=== PATIENT | female | born 1935 | race Caucasian/White ===

== ENCOUNTER 2022-08-30 16:47 | Inpatient (IN) ==
[2022-08-30] MEDS ORDERED: 0.9 % SODIUM CHLORIDE 1,000 ML IV ONE ×2 (17:09→22:43)
--- NOTE | 2022-08-30 17:15 | Emergency Department Note ---
Syncope HPI General Chief Complaint: Syncope Stated Complaint: syncope Time Seen by Provider: 08/30/22 16:55 Source: patient, family and EMS Mode of arrival: ambulatory Limitations: altered mental status History of Present Illness HPI Narrative: Narrative: The patient presents after syncopal episode. Patient had a fall last night in which she injured her left knee and struck her head. She was seen at another [facility] and a head CT and x-ray were performed. Patient was told that she has a left knee fracture. Today, the patient was having increased pain in her knee and decided that she wanted to try to stand up. She was assisted with family to attempt to stand up. As the family was placing her back into her wheelchair, the patient had a brief syncopal episode. There was no convulsive activity or postictal state. Patient has had no vomiting. Reportedly she has had increased output into her ostomy bag. She has had a slight cough. Family states that patient seems confused after the syncopal episode. They state that she is normally alert and aware but seemed confused afterwards. Related Data Home Medications Medication Instructions Recorded Confirmed acetaminophen 325 mg capsule 325 mg PO ONCE PRN 08/24/20 08/12/22 cyanocobalamin (vitamin B-12) 500 500 mcg PO QDAY 08/24/20 08/12/22 mcg tablet diclofenac sodium 1 % topical gel 2 g topical QID 08/24/20 08/12/22 donepezil 10 mg tablet 10 mg PO QDAY 08/24/20 08/12/22 fluticasone propionate 50 1 inh inhalation BID 08/24/20 08/12/22 mcg/actuation blister powder for inhalation folic acid 400 mcg tablet 400 mcg PO QDAY 08/24/20 08/12/22 gabapentin 100 mg capsule 100 mg PO QDAY 08/24/20 08/12/22 levothyroxine 175 mcg capsule 175 mcg PO QDAY 08/24/20 08/12/22 magnesium 250 mg tablet 400 mg PO QDAY 08/24/20 08/12/22 memantine 10 mg tablet 10 mg PO BID 08/24/20 08/12/22 omega 0-jvu-cbz-fish oil 1,200 mg cap PO 08/24/20 08/12/22 (144 mg-216 mg) capsule (Fish Oil) potassium citrate 10 mEq (1,080 2,160 mg PO BID 08/24/20 08/12/22 mg) tablet,extended release calcium carbonate 600 mg-vitamin tab PO 07/25/22 08/12/22 D3 10 mcg (400 unit) chewable tablet (Calcium 600 with Vitamin D3) mirtazapine 7.5 mg tablet 7.5 mg PO QHS 07/25/22 08/12/22 Allergies Allergy/AdvReac Type Severity Reaction Status Date / Time metoclopramide [From Reglan] AdvReac Intermediate Confusion Verified 08/12/22 16:05 promethazine [From Phenergan] AdvReac Intermediate Confusion Verified 08/12/22 16:05 Review of Systems ROS ROS Narrative: Narrative: Limitations: ROS unobtainable due to patients medical condition (Due to patient's altered mental status.) PFSH Narrative Patient History Narrative: Narrative: Medical/Surgical/Family History All Active Problems (Updated 08/30/22 @ 18:36 by Bryon Garrido MD) Hyponatremia (Chronic) Influenza (Chronic) Dehydration (Chronic) Hip pain (Chronic) Osteoarthritis of hip (Chronic) Trochanteric bursitis (Chronic) Sacroiliitis (Chronic) Bronchitis (Chronic) Kidney failure (Chronic) Hypothyroidism (Chronic) Autoimmune disease (Chronic) Chronic pain (Chronic) Low back pain (Chronic) Menopausal syndrome (Chronic) Fatigue (Chronic) Malaise (Chronic) Joint pain (Chronic) Arthritis (Chronic) Chronic renal failure, stage 4 (severe) (Chronic) Lumbar back pain (Chronic) Herpes zoster (Chronic) History of surgery (Chronic) Abscess of breast, right (Acute) Recurrent UTI (Chronic) Bladder stones (Chronic) Syncope (Acute) SHIVA (acute kidney injury) (Acute) Medical History Arthritis Autoimmune disease Bronchitis Chronic pain Chronic renal failure, stage 4 (severe) Dehydration Fatigue Herpes zoster Hip pain Hyponatremia Hypothyroidism Influenza Joint pain Kidney failure Low back pain Lumbar back pain Malaise Menopausal syndrome Osteoarthritis of hip Recurrent UTI Sacroiliitis Trochanteric bursitis Surgical History History of appendectomy History of hysterectomy History of ileostomy with proctocolectomy, Revison of ileostomy x 2 History of surgery Thoracic Sympathetic Block w/cath, w/sed 10/13/1709/25 Thoracic Sympathetic Block w/cath, w/sed 10/07/2017 History of tonsillectomy and adenoidectomy History of tubal ligation Family History Father Heart disease Arthritis Hypertension Coronary heart disease Colitis Mother Heart disease Hypertension Melanoma Other Heart attack Social History Smoking Status: Never smoker Alcohol Intake Frequency: does not drink Substance Use: does not use Exam Narrative Narrative: Narrative: General Limitations: altered mental status General appearance: Present alert and in no apparent distress Head Head: Absent atraumatic (Multiple facial ecchymoses.) or normal inspection Eye Eye: Present normal appearance, PERRL, EOMI and visual max intact ENT ENT: Present mucous membranes moist Neck Neck: Present normal inspection, full ROM and trachea midline; Absent tenderness Chest Chest: Present normal inspection and symmetric chest wall rise; Absent tenderness Respiratory Respiratory: Present normal lung sounds bilaterally; Absent respiratory distress Cardiovascular Cardiovascular: Present regular rate, normal rhythm and other (+2 pulses in all 4 extremities) Adbominal Abdominal: Present soft; Absent distention or tenderness Extremities Extremities: Absent normal inspection (Left knee in an immobilizer) or full ROM (Apart from limited range of motion of left knee due to the immobilizer, patient has full range of motion of all other extremities) Back Back: Present full ROM; Absent tenderness, CVA tenderness (R) or CVA tenderness (L) Neurological Neurological: Present alert and CN II-XII intact; Absent oriented X3 (Patient seems alert to person and place but is a little confused on time and is unable to properly identify family members) or motor sensory deficit Psychiatric Psychiatric: Present normal affect and normal mood Skin Skin: Present warm (WNL) and dry Course Vital Signs Vital signs: Vital Signs Temperature 97.2 F 08/30/22 16:49 Pulse Rate 57 L 08/30/22 16:49 Respiratory Rate 17 08/30/22 16:49 Blood Pressure 94/67 08/30/22 16:49 Pulse Oximetry (%) 98 08/30/22 16:49 Oxygen Delivery Method 08/30/22 16:49 Temperature 97.2 F 08/30/22 16:49 Pulse Rate 56 L 08/30/22 17:42 Respiratory Rate 15 08/30/22 17:16 Blood Pressure 102/53 08/30/22 17:42 Pulse Oximetry (%) 93 08/30/22 17:42 Oxygen Delivery Method 08/30/22 16:49 MDM MDM Narrative Medical decision making narrative: Narrative: The patient presents after syncopal episode. She had a traumatic fall yesterday but was worked up for this. I will reimage the head today although I have a low suspicion for any acute central nervous system event given a nonfocal neurologic exam. Delayed subdural is considered for the altered mental status. Occult infection is also considered. Metabolic abnormalities are considered. Cardiac etiology is considered. Work-up will be geared towards this differential. Patient most likely will need to be observed overnight in the hospital. Due to limitations and capacity concerns, patient may need to be transferred. At change of shift, the patient is handed over to the oncoming physician who will follow up on remaining studies and then make appropriate disposition Lab Data Lab results reviewed: Yes I reviewed the patient's lab results. Result diagrams: 08/30/22 16:55 08/30/22 16:55 Labs: Lab Results 08/30/22 08/30/22 08/30/22 Range/Units 16:55 16:55 16:55 WBC 11.2 H (4.5-11.0) K/mcL RBC 4.12 (3.59-5.38) M/mcL Hgb 12.3 (11.2-15.7) g/dL Hct 36.7 (34.1-44.9) % MCV 89.1 (80.0-100.0) fL MCH 29.9 (26.0-34.0) pg MCHC 33.5 (31.0-36.0) g/dL RDW 14.7 H (11.5-14.5) % Plt Count 307 (140-440) K/mcL MPV 10.4 (8.8-12.5) fL Immature Gran % (Auto) 0.4 (0.0-0.5) % Neut % (Auto) 66.7 (38.0-78.0) % Lymph % (Auto) 25.6 (15.5-49.0) % [place] % (Auto) 6.3 (1.0-12.0) % Eos % (Auto) 0.6 (0.0-7.0) % Baso % (Auto) 0.4 (0.0-2.0) % Lymph # (Auto) 2.87 (1.50-4.80) K/mcL [place] # (Auto) 0.71 (0.10-0.90) K/mcL Eos # (Auto) 0.07 (0.00-0.70) K/mcL Baso # (Auto) 0.04 (0.00-0.30) K/mcL Immature Gran # 0.04 (0.00-0.05) K/mcl Absolute Neutrophils 7.50 (1.80-8.00) K/mcL POC VBG pH (7.32-7.42) POC VBG pCO2 at Temp (41-51) POC VBG pO2 (25-40) POC VBG HCO3 (24-28) POC VBG Total CO2 (25-29) POC Venous O2 Sat (40-70) POC VBG Base Excess (-2-2) VBG Lactic Acid (0.5-2) Sodium 126 L (133-145) mmol/L Potassium 5.6 H (3.3-5.1) mmol/L Chloride 77 L (96-108) mmol/L Carbon Dioxide 28 (22-30) mmol/L Anion Gap 21.0 H (8.0-16.0) BUN 148 H* (8-23) mg/dL Creatinine 10.7 H* (0.6-1.1) mg/dL GFR Calculation 3 Glucose 118 H (70-105) mg/dL Calcium 9.4 (8.6-10.4) mg/dL Total Bilirubin 0.3 (0.1-1.0) mg/dL AST 19 (<32) U/L ALT 11 (<40) U/L Alkaline Phosphatase 98 (39-117) U/L Total Protein 6.6 (5.9-8.4) gm/dL Albumin 3.6 (3.2-5.2) gm/dL Globulin 3.0 (2.2-3.7) gm/dL Albumin/Globulin Ratio 1.2 (1.0-2.3) Ethyl Alcohol mg/dL < 10.0 mg/dL Ethyl Alcohol g/dL < 0.010 (<0.010) gm/dL 08/30/22 Range/Units 17:43 WBC (4.5-11.0) K/mcL RBC (3.59-5.38) M/mcL Hgb (11.2-15.7) g/dL Hct (34.1-44.9) % MCV (80.0-100.0) fL MCH (26.0-34.0) pg MCHC (31.0-36.0) g/dL RDW (11.5-14.5) % Plt Count (140-440) K/mcL MPV (8.8-12.5) fL Immature Gran % (Auto) (0.0-0.5) % Neut % (Auto) (38.0-78.0) % Lymph % (Auto) (15.5-49.0) % [place] % (Auto) (1.0-12.0) % Eos % (Auto) (0.0-7.0) % Baso % (Auto) (0.0-2.0) % Lymph # (Auto) (1.50-4.80) K/mcL [place] # (Auto) (0.10-0.90) K/mcL Eos # (Auto) (0.00-0.70) K/mcL Baso # (Auto) (0.00-0.30) K/mcL Immature Gran # (0.00-0.05) K/mcl Absolute Neutrophils (1.80-8.00) K/mcL POC VBG pH 7.41 (7.32-7.42) POC VBG pCO2 at Temp 45.7 (41-51) POC VBG pO2 41 H (25-40) POC VBG HCO3 28.9 H (24-28) POC VBG Total CO2 30.0 H (25-29) POC Venous O2 Sat 76.0 H (40-70) POC VBG Base Excess 4.0 H* (-2-2) VBG Lactic Acid 1.6 (0.5-2) Sodium (133-145) mmol/L Potassium (3.3-5.1) mmol/L Chloride (96-108) mmol/L Carbon Dioxide (22-30) mmol/L Anion Gap (8.0-16.0) BUN (8-23) mg/dL Creatinine (0.6-1.1) mg/dL GFR Calculation Glucose (70-105) mg/dL Calcium (8.6-10.4) mg/dL Total Bilirubin (0.1-1.0) mg/dL AST (<32) U/L ALT (<40) U/L Alkaline Phosphatase (39-117) U/L Total Protein (5.9-8.4) gm/dL Albumin (3.2-5.2) gm/dL Globulin (2.2-3.7) gm/dL Albumin/Globulin Ratio (1.0-2.3) Ethyl Alcohol mg/dL mg/dL Ethyl Alcohol g/dL (<0.010) gm/dL ED POC Tests ED POC Tests: BEBETO - Influenza A Negative BEBETO - Influenza B Negative BEBETO - SARS Antigen Negative Radiology Data Radiology results reviewed: Yes I reviewed the patient's radiology results. Radiology results narrative: Per my interpretation of the chest x-ray, there is no definite infiltrative process. It appears relatively unchanged from prior dated back in May EKG Data EKG #1: EKG attestation: Yes I reviewed and interpreted this EKG. and Yes There are no EKG findings of acute coronary syndrome EKG results narrative: Sinus, rate 57, left axis, normal intervals, narrow complex QRS, no acute ST or T changes concerning for acute infarction or ischemia Discharge Plan Patient/Caregiver Discharge Instructions Pt seen by PRINCIPAL MILITARY ANALYST/PA only: No Clinical Impression: Hyponatremia, SHIVA (acute kidney injury) Syncope Qualifiers: Syncope type: unspecified Qualified Code(s): R55 - Syncope and collapse Patient Disposition: Still a Patient Follow up with: Ivone Terrell MD [Primary Care Provider] - Prescriptions: No Action gabapentin 100 mg capsule 100 mg PO QDAY levothyroxine 175 mcg capsule 175 mcg PO QDAY acetaminophen 325 mg capsule 325 mg PO ONCE PRN omega 0-qlq-nxx-fish oil [Fish Oil] 1,200 (144-216) mg capsule PO cyanocobalamin (vitamin B-12) 500 mcg tablet 500 mcg PO QDAY magnesium 250 mg tablet 400 mg PO QDAY donepezil 10 mg tablet 10 mg PO QDAY memantine 10 mg tablet 10 mg PO BID fluticasone propionate 50 mcg/actuation blister with device 1 inh INHALATION BID potassium citrate 10 mEq (1,080 mg) tablet extended release 2,160 mg PO BID folic acid 400 mcg tablet 400 mcg PO QDAY diclofenac sodium 1 % gel 2 g TOPICAL QID Rx Instructions: apply to single elbow, wrist or hand; for hand includes palm/fingers/back of hand Calcium 600 with Vitamin D3 600 mg-10 mcg (400 unit) tablet,chewable PO mirtazapine 7.5 mg tablet 7.5 mg PO QHS
[2022-08-30 17:58] LABS: Basophils # (Auto) 0.04 K/mcL (0.00-0.30); Basophils % (Auto) 0.4 % (0.0-2.0); Eosinophils # (Auto) 0.07 K/mcL (0.00-0.70); Eosinophils % (Auto) 0.6 % (0.0-7.0); Hematocrit 36.7 % (34.1-44.9); Hemoglobin 12.3 g/dL (11.2-15.7); Lymphocytes # (Auto) 2.87 K/mcL (1.50-4.80); Lymphocytes % (Auto) 25.6 % (15.5-49.0); Mean Cell Volume 89.1 fL (80.0-100.0); Mean Corpuscular HGB Conc 33.5 g/dL (31.0-36.0); Mean Platelet Volume 10.4 fL (8.8-12.5); Monocytes # (Auto) 0.71 K/mcL (0.10-0.90); Monocytes % (Auto) 6.3 % (1.0-12.0); Neutrophils % (Auto) 66.7 % (38.0-78.0); Platelet Count 307 K/mcL (140-440); RBC 4.12 M/mcL (3.59-5.38); Red Cell Distribution Width 14.7 % (11.5-14.5); WBC 11.2 K/mcL (4.5-11.0)
--- NOTE | 2022-08-30 18:14 | XRay Report ---
CLINICAL INFORMATION: Cough COMPARISON: 05/16/2022 TECHNIQUE: Portable FINDINGS: The heart size, mediastinum and pulmonary vessels are unremarkable. The lungs are clear. There are no effusions. The bones and soft tissues are within normal limits. IMPRESSION: Normal chest. Interpreted and Authenticated by: Alvaro Suarez 08/30/22
--- NOTE | 2022-08-30 18:14 | Cat Scan Report ---
CLINICAL INFORMATION: Syncope COMPARISON: None. TECHNIQUE: 2.5 mm helical slices were obtained in the skull base to vertex. Following reconstruction, axial reformatted images were reviewed at bone and parenchymal windows. The exam was performed using radiation dose optimization techniques including, but not limited to, automated exposure control, adjustment of the mA and/or kV according to patient size and use of iterative reconstruction technique. FINDINGS: The ventricles, sulci, fissures, and cisterns are symmetrically enlarged compatible with mild age-related atrophy. No extra-axial fluid collections are identified. Mild patchy chronic ischemic changes, in the deep cerebral white matter, are expected for age. There is no hemorrhage, mass effect, or edema. Bone windows show no osseous abnormality. Right scalp hematoma over the left lateral region. IMPRESSION: Mild atrophy and chronic ischemic changes in the deep cerebral white matter-expected for age. No intracerebral hemorrhage. Small scalp hematoma over the left frontal calvaria Interpreted and Authenticated by: Alvaro Suarez 08/30/22
[2022-08-30 18:18] LABS: Alcohol, Blood < 10.0 mg/dL; Alcohol,Blood < 0.010 gm/dL (<0.010)
[2022-08-30 18:31] LABS: ALT/SGPT 11 U/L (<40); AST/SGOT 19 U/L (<32); Albumin 3.6 gm/dL (3.2-5.2); Albumin/Globulin Ratio 1.2 (1.0-2.3); Alkaline Phosphatase 98 U/L (39-117); Bilirubin,Total 0.3 mg/dL (0.1-1.0); Blood Urea Nitrogen 148 mg/dL (8-23); Calcium 9.4 mg/dL (8.6-10.4); Carbon Dioxide 28 mmol/L (22-30); Chloride 77 mmol/L (96-108); Glomerular Filtration Rate 3; Glucose 118 mg/dL (70-105)
[2022-08-30] MEDS: 0.9 % SODIUM CHLORIDE 1,000 ML IV SCH (19:30)
[2022-08-30 19:47] LABS: Appearance,Urine TURBID (Clear); Bacteria,Urine MANY /hpf (0); Bilirubin,Urine NEGATIVE (Negative); Color,Urine DK. YELLOW; Culture Indicated,Urine yes; Glucose,Urine (UA) NEGATIVE (Negative); Ketones,Urine TRACE mg/dL (Negative); Leukocyte Esterase,Urine LARGE /uL (Negative); Nitrate,Urine NEGATIVE (Negative); Protein,Urine 100 mg/dL (Negative); Specific Gravity,Urine 1.025 (1.000-1.035); Urine Blood LARGE ery/mcL (Negative); Urine RBC > 182 /hpf (0-1); Urine Squamous Epithelial Cell 0 /hpf (0-4); Urine WBC > 182 /hpf (0-4); Urobilinogen,Urine Normal
[2022-08-30] MEDS ORDERED: FUROSEMIDE 20 MG/2 ML VIAL IV ONE (20:00)
[2022-08-30 20:02] LABS: Amphetamine Screen,Urine None detected; Barbiturate Screen,Urine None detected; Benzodiazepines Screen,Urine None detected; Cannabinoid Screen,Urine None detected; Cocaine Screen,Urine None detected; Opiate Screen,Urine Suspect Positive; Oxycodone, Urine Screen None detected; Phencyclidine Screen,Urine None detected
[2022-08-30] MEDS: cefTRIAXone 2 GM in DEXTROSE 5% IN WATER 50 ML IV SCH (20:26)
[2022-08-31] MEDS: NOREPINEPHRINE BITARTRATE 16 MG in 0.9 % SODIUM CHLORIDE 234 ML IV SCH (01:17)
[2022-08-31] MEDS: 0.9 % SODIUM CHLORIDE 250 ML IV SCH ×5 (02:15→23:30)
[2022-08-31] MEDS: 0.9 % SODIUM CHLORIDE 1,000 ML IV SCH ×4 (05:20→23:27)
[2022-08-31] MEDS ORDERED: ACETAMINOPHEN 325 MG TABLET PO ONE ×2 (05:35→10:28)
[2022-08-31 06:36] LABS: Basophils # (Auto) 0.05 K/mcL (0.00-0.30); Basophils % (Auto) 0.5 % (0.0-2.0); Eosinophils # (Auto) 0.21 K/mcL (0.00-0.70); Hematocrit 33.6 % (34.1-44.9); Hemoglobin 10.9 g/dL (11.2-15.7); Lymphocytes # (Auto) 3.36 K/mcL (1.50-4.80); Lymphocytes % (Auto) 32.6 % (15.5-49.0); Mean Cell Volume 91.1 fL (80.0-100.0); Mean Corpuscular HGB Conc 32.4 g/dL (31.0-36.0); Mean Platelet Volume 10.3 fL (8.8-12.5); Monocytes # (Auto) 0.84 K/mcL (0.10-0.90); Monocytes % (Auto) 8.1 % (1.0-12.0); Neutrophils % (Auto) 56.3 % (38.0-78.0); Platelet Count 279 K/mcL (140-440); RBC 3.69 M/mcL (3.59-5.38); Red Cell Distribution Width 14.8 % (11.5-14.5); WBC 10.3 K/mcL (4.5-11.0)
--- NOTE | 2022-08-31 06:39 | Emergency Department Note ---
Course Course Course Narrative: I assumed care of patient at 1900 pending accepting facility. Unfortunate we have not received any accepting facility. Patient's blood pressure fell and remained in the low 80s systolically with a MAP of 53. She was bolused IV fluid but that did not help her blood pressure. Patient was started on Levophed drip. Her blood pressure responded appropriately. We will repeat labs in the morning. Case will be signed out to Dr. Garrido. Vital Signs Vital signs: Vital Signs Temperature 97.2 F 08/30/22 16:49 Pulse Rate 57 L 08/30/22 16:49 Respiratory Rate 17 08/30/22 16:49 Blood Pressure 94/67 08/30/22 16:49 Pulse Oximetry (%) 98 08/30/22 16:49 Oxygen Delivery Method 08/30/22 16:49 Temperature 97.1 F 08/31/22 05:29 Pulse Rate 56 L 08/31/22 06:57 Respiratory Rate 14 08/31/22 06:57 Blood Pressure 98/76 08/31/22 06:51 Pulse Oximetry (%) 100 08/31/22 06:57 Oxygen Delivery Method 08/30/22 16:49 MDM MDM Narrative Medical decision making narrative: Narrative: Differential Diagnosis Differential Diagnosis: Dehydration, syncope Medical Records Medical records reviewed: Yes I reviewed the patient's medical records. Lab Data Lab results reviewed: Yes I reviewed the patient's lab results. Result diagrams: 08/31/22 05:55 08/30/22 16:55 Labs: Lab Results 08/30/22 08/30/22 08/30/22 Range/Units 16:55 16:55 16:55 WBC 11.2 H (4.5-11.0) K/mcL RBC 4.12 (3.59-5.38) M/mcL Hgb 12.3 (11.2-15.7) g/dL Hct 36.7 (34.1-44.9) % MCV 89.1 (80.0-100.0) fL MCH 29.9 (26.0-34.0) pg MCHC 33.5 (31.0-36.0) g/dL RDW 14.7 H (11.5-14.5) % Plt Count 307 (140-440) K/mcL MPV 10.4 (8.8-12.5) fL Immature Gran % (Auto) 0.4 (0.0-0.5) % Neut % (Auto) 66.7 (38.0-78.0) % Lymph % (Auto) 25.6 (15.5-49.0) % [place] % (Auto) 6.3 (1.0-12.0) % Eos % (Auto) 0.6 (0.0-7.0) % Baso % (Auto) 0.4 (0.0-2.0) % Lymph # (Auto) 2.87 (1.50-4.80) K/mcL [place] # (Auto) 0.71 (0.10-0.90) K/mcL Eos # (Auto) 0.07 (0.00-0.70) K/mcL Baso # (Auto) 0.04 (0.00-0.30) K/mcL Immature Gran # 0.04 (0.00-0.05) K/mcl Absolute Neutrophils 7.50 (1.80-8.00) K/mcL POC VBG pH (7.32-7.42) POC VBG pCO2 at Temp (41-51) POC VBG pO2 (25-40) POC VBG HCO3 (24-28) POC VBG Total CO2 (25-29) POC Venous O2 Sat (40-70) POC VBG Base Excess (-2-2) VBG Lactic Acid (0.5-2) Sodium 126 L (133-145) mmol/L Potassium 5.6 H (3.3-5.1) mmol/L Chloride 77 L (96-108) mmol/L Carbon Dioxide 28 (22-30) mmol/L Anion Gap 21.0 H (8.0-16.0) BUN 148 H* (8-23) mg/dL Creatinine 10.7 H* (0.6-1.1) mg/dL GFR Calculation 3 Glucose 118 H (70-105) mg/dL Calcium 9.4 (8.6-10.4) mg/dL Total Bilirubin 0.3 (0.1-1.0) mg/dL AST 19 (<32) U/L ALT 11 (<40) U/L Alkaline Phosphatase 98 (39-117) U/L Total Protein 6.6 (5.9-8.4) gm/dL Albumin 3.6 (3.2-5.2) gm/dL Globulin 3.0 (2.2-3.7) gm/dL Albumin/Globulin Ratio 1.2 (1.0-2.3) Urine Color Urine Appearance (Clear) Urine pH (5.0-9.0) Ur Specific [place] (1.000-1.035) Urine Protein (Negative) mg/dL Urine Glucose (UA) (Negative) mg/dL Urine Ketones (Negative) mg/dL Urine Occult Blood (Negative) karyna/mcL Urine Nitrate (Negative) Urine Bilirubin (Negative) mg/dL Urine Urobilinogen mg/dL Ur Leukocyte Esterase (Negative) /uL Urine RBC (0-1) /hpf Urine WBC (0-4) /hpf Ur Squamous Epith Cells (0-4) /hpf Urine Bacteria (0) /hpf Ur Culture Indicated? Urine Opiates Screen Ur Oxycodone Screen U Oxycod/Oxymor Confirm Urine Methadone Screen Ur Methadone Confirm Ur Barbiturates Screen Ur Barbiturate Confirm Ur Phencyclidine Scrn Urine PCP Confirm Ur Amphetamines Screen U Amphetamines Confirm U Benzodiazepines Scrn Ur Benzodiazepine, Qnt Urine Cocaine Screen Urine Cocaine Confirm U Cannabinoids Confirm U Marijuana (THC) Screen Ethyl Alcohol mg/dL < 10.0 mg/dL Ethyl Alcohol g/dL < 0.010 (<0.010) gm/dL 08/30/22 08/30/22 08/30/22 Range/Units 17:43 19:00 19:00 WBC (4.5-11.0) K/mcL RBC (3.59-5.38) M/mcL Hgb (11.2-15.7) g/dL Hct (34.1-44.9) % MCV (80.0-100.0) fL MCH (26.0-34.0) pg MCHC (31.0-36.0) g/dL RDW (11.5-14.5) % Plt Count (140-440) K/mcL MPV (8.8-12.5) fL Immature Gran % (Auto) (0.0-0.5) % Neut % (Auto) (38.0-78.0) % Lymph % (Auto) (15.5-49.0) % [place] % (Auto) (1.0-12.0) % Eos % (Auto) (0.0-7.0) % Baso % (Auto) (0.0-2.0) % Lymph # (Auto) (1.50-4.80) K/mcL [place] # (Auto) (0.10-0.90) K/mcL Eos # (Auto) (0.00-0.70) K/mcL Baso # (Auto) (0.00-0.30) K/mcL Immature Gran # (0.00-0.05) K/mcl Absolute Neutrophils (1.80-8.00) K/mcL POC VBG pH 7.41 (7.32-7.42) POC VBG pCO2 at Temp 45.7 (41-51) POC VBG pO2 41 H (25-40) POC VBG HCO3 28.9 H (24-28) POC VBG Total CO2 30.0 H (25-29) POC Venous O2 Sat 76.0 H (40-70) POC VBG Base Excess 4.0 H* (-2-2) VBG Lactic Acid 1.6 (0.5-2) Sodium (133-145) mmol/L Potassium (3.3-5.1) mmol/L Chloride (96-108) mmol/L Carbon Dioxide (22-30) mmol/L Anion Gap (8.0-16.0) BUN (8-23) mg/dL Creatinine (0.6-1.1) mg/dL GFR Calculation Glucose (70-105) mg/dL Calcium (8.6-10.4) mg/dL Total Bilirubin (0.1-1.0) mg/dL AST (<32) U/L ALT (<40) U/L Alkaline Phosphatase (39-117) U/L Total Protein (5.9-8.4) gm/dL Albumin (3.2-5.2) gm/dL Globulin (2.2-3.7) gm/dL Albumin/Globulin Ratio (1.0-2.3) Urine Color Dk. yellow Urine Appearance Turbid A (Clear) Urine pH 6.0 (5.0-9.0) Ur Specific [place] 1.025 (1.000-1.035) Urine Protein 100 A (Negative) mg/dL Urine Glucose (UA) Negative (Negative) mg/dL Urine Ketones Trace A (Negative) mg/dL Urine Occult Blood Large A (Negative) karyna/mcL Urine Nitrate Negative (Negative) Urine Bilirubin Negative (Negative) mg/dL Urine Urobilinogen Normal mg/dL Ur Leukocyte Esterase Large A (Negative) /uL Urine RBC > 182 H (0-1) /hpf Urine WBC > 182 H (0-4) /hpf Ur Squamous Epith Cells 0 (0-4) /hpf Urine Bacteria Many A (0) /hpf Ur Culture Indicated? yes Urine Opiates Screen Suspect positive A Ur Oxycodone Screen None detected U Oxycod/Oxymor Confirm TNP Urine Methadone Screen None detected Ur Methadone Confirm TNP Ur Barbiturates Screen None detected Ur Barbiturate Confirm TNP Ur Phencyclidine Scrn None detected Urine PCP Confirm TNP Ur Amphetamines Screen None detected U Amphetamines Confirm TNP U Benzodiazepines Scrn None detected Ur Benzodiazepine, Qnt TNP Urine Cocaine Screen None detected Urine Cocaine Confirm TNP U Cannabinoids Confirm TNP U Marijuana (THC) Screen None detected Ethyl Alcohol mg/dL mg/dL Ethyl Alcohol g/dL (<0.010) gm/dL 08/31/22 Range/Units 05:55 WBC 10.3 (4.5-11.0) K/mcL RBC 3.69 (3.59-5.38) M/mcL Hgb 10.9 L (11.2-15.7) g/dL Hct 33.6 L (34.1-44.9) % MCV 91.1 (80.0-100.0) fL MCH 29.5 (26.0-34.0) pg MCHC 32.4 (31.0-36.0) g/dL RDW 14.8 H (11.5-14.5) % Plt Count 279 (140-440) K/mcL MPV 10.3 (8.8-12.5) fL Immature Gran % (Auto) 0.5 (0.0-0.5) % Neut % (Auto) 56.3 (38.0-78.0) % Lymph % (Auto) 32.6 (15.5-49.0) % [place] % (Auto) 8.1 (1.0-12.0) % Eos % (Auto) 2.0 (0.0-7.0) % Baso % (Auto) 0.5 (0.0-2.0) % Lymph # (Auto) 3.36 (1.50-4.80) K/mcL [place] # (Auto) 0.84 (0.10-0.90) K/mcL Eos # (Auto) 0.21 (0.00-0.70) K/mcL Baso # (Auto) 0.05 (0.00-0.30) K/mcL Immature Gran # 0.05 (0.00-0.05) K/mcl Absolute Neutrophils 5.80 (1.80-8.00) K/mcL POC VBG pH (7.32-7.42) POC VBG pCO2 at Temp (41-51) POC VBG pO2 (25-40) POC VBG HCO3 (24-28) POC VBG Total CO2 (25-29) POC Venous O2 Sat (40-70) POC VBG Base Excess (-2-2) VBG Lactic Acid (0.5-2) Sodium (133-145) mmol/L Potassium (3.3-5.1) mmol/L Chloride (96-108) mmol/L Carbon Dioxide (22-30) mmol/L Anion Gap (8.0-16.0) BUN (8-23) mg/dL Creatinine (0.6-1.1) mg/dL GFR Calculation Glucose (70-105) mg/dL Calcium (8.6-10.4) mg/dL Total Bilirubin (0.1-1.0) mg/dL AST (<32) U/L ALT (<40) U/L Alkaline Phosphatase (39-117) U/L Total Protein (5.9-8.4) gm/dL Albumin (3.2-5.2) gm/dL Globulin (2.2-3.7) gm/dL Albumin/Globulin Ratio (1.0-2.3) Urine Color Urine Appearance (Clear) Urine pH (5.0-9.0) Ur Specific [place] (1.000-1.035) Urine Protein (Negative) mg/dL Urine Glucose (UA) (Negative) mg/dL Urine Ketones (Negative) mg/dL Urine Occult Blood (Negative) karyna/mcL Urine Nitrate (Negative) Urine Bilirubin (Negative) mg/dL Urine Urobilinogen mg/dL Ur Leukocyte Esterase (Negative) /uL Urine RBC (0-1) /hpf Urine WBC (0-4) /hpf Ur Squamous Epith Cells (0-4) /hpf Urine Bacteria (0) /hpf Ur Culture Indicated? Urine Opiates Screen Ur Oxycodone Screen U Oxycod/Oxymor Confirm Urine Methadone Screen Ur Methadone Confirm Ur Barbiturates Screen Ur Barbiturate Confirm Ur Phencyclidine Scrn Urine PCP Confirm Ur Amphetamines Screen U Amphetamines Confirm U Benzodiazepines Scrn Ur Benzodiazepine, Qnt Urine Cocaine Screen Urine Cocaine Confirm U Cannabinoids Confirm U Marijuana (THC) Screen Ethyl Alcohol mg/dL mg/dL Ethyl Alcohol g/dL (<0.010) gm/dL ED POC Tests ED POC Tests: BEBETO - Influenza A Negative BEBETO - Influenza B Negative BEBETO - SARS Antigen Negative Core Measures AMI Core Measures Followed: Yes Discharge Plan Patient/Caregiver Discharge Instructions Pt seen by BI LEAD/PA only: No Clinical Impression: Hyponatremia, SHIVA (acute kidney injury) Syncope Qualifiers: Syncope type: unspecified Qualified Code(s): R55 - Syncope and collapse Patient Disposition: Still a Patient Follow up with: Ivone Terrell MD [Primary Care Provider] - Prescriptions: No Action gabapentin 100 mg capsule 100 mg PO QDAY levothyroxine 175 mcg capsule 175 mcg PO QDAY acetaminophen 325 mg capsule 325 mg PO ONCE PRN omega 9-yia-oiz-fish oil [Fish Oil] 1,200 (144-216) mg capsule PO cyanocobalamin (vitamin B-12) 500 mcg tablet 500 mcg PO QDAY magnesium 250 mg tablet 400 mg PO QDAY donepezil 10 mg tablet 10 mg PO QDAY memantine 10 mg tablet 10 mg PO BID fluticasone propionate 50 mcg/actuation blister with device 1 inh INHALATION BID potassium citrate 10 mEq (1,080 mg) tablet extended release 2,160 mg PO BID folic acid 400 mcg tablet 400 mcg PO QDAY diclofenac sodium 1 % gel 2 g TOPICAL QID Rx Instructions: apply to single elbow, wrist or hand; for hand includes palm/fingers/back of hand Calcium 600 with Vitamin D3 600 mg-10 mcg (400 unit) tablet,chewable PO mirtazapine 7.5 mg tablet 7.5 mg PO QHS
[2022-08-31 07:39] LABS: ALT/SGPT 9 U/L (<40); AST/SGOT 14 U/L (<32); Albumin 2.6 gm/dL (3.2-5.2); Albumin/Globulin Ratio 0.9 (1.0-2.3); Alkaline Phosphatase 71 U/L (39-117); Bilirubin,Total 0.2 mg/dL (0.1-1.0); Blood Urea Nitrogen 123 mg/dL (8-23); Calcium 8.3 mg/dL (8.6-10.4); Carbon Dioxide 21 mmol/L (22-30); Chloride 89 mmol/L (96-108); Globulin 2.9 gm/dL (2.2-3.7); Glomerular Filtration Rate 4; Glucose 99 mg/dL (70-105)
[2022-08-31] MEDS: DOPamine 400 MG in PREMIX 1 BAG IV SCH (11:11)
--- NOTE | 2022-08-31 12:13 | Nephrology Consult Note ---
HPI Date of Consult Consult Date: 08/31/22 Requesting physician: Bryon Garrido Primary Care Provider: Ivone Terrell Consult Narrative Chief complaint: Altered mental status Reason for consult: Acute kidney injury on chronic kidney disease stage 4 History of present illness: Janelle Rene is an 87-year-old female, being admitted on 08/31/22. She has dementia, s/p proctocolectomy and ileostomy, history of recurrent urinary tract infections, multiple bladder stones s/p removal by cystoscopy on 08/24/22, chronic kidney disease stage 4-5 (followed by Dr. Mejia). She presented to [facility] ED after a syncopal episode. Patient had a fall the previous night and was seen at [facility] ED. A left knee fracture was diagnosed. She was discharged home. In ED, she was found to be in acute kidney injury with hyperkalemia, metabolic acidosis and hyponatremia. She could not be transferred to a higher level of care. She made urine after IV fluids. Her creatinine and electrolyte abnormalities improved. She is being admitted for supportive care to hospitalist service. I saw her in ED with two daughters at the bedside. Nephrology consultation was requested for acute kidney injury. cc:: CC: Review of Systems ROS unobtainable: due to mental status PFSH PFSH All Active Problems (Updated 08/31/22 @ 12:11 by Abbi No MD) Hyperkalemia (Acute) Acute renal failure superimposed on stage 4 chronic kidney disease (Acute) Hyponatremia (Acute) Influenza (Chronic) Dehydration (Chronic) Hip pain (Chronic) Osteoarthritis of hip (Chronic) Trochanteric bursitis (Chronic) Sacroiliitis (Chronic) Bronchitis (Chronic) Kidney failure (Chronic) Hypothyroidism (Chronic) Autoimmune disease (Chronic) Chronic pain (Chronic) Low back pain (Chronic) Menopausal syndrome (Chronic) Fatigue (Chronic) Malaise (Chronic) Joint pain (Chronic) Arthritis (Chronic) Chronic renal failure, stage 4 (severe) (Chronic) Lumbar back pain (Chronic) Herpes zoster (Chronic) History of surgery (Chronic) Abscess of breast, right (Acute) Recurrent UTI (Chronic) Bladder stones (Chronic) Syncope (Acute) SHIVA (acute kidney injury) (Acute) Medical History (Updated 08/31/22 @ 12:11 by Abbi No MD) Arthritis Autoimmune disease Bronchitis Chronic pain Chronic renal failure, stage 4 (severe) Dehydration Fatigue Herpes zoster Hip pain Hyponatremia Hypothyroidism Influenza Joint pain Kidney failure Low back pain Lumbar back pain Malaise Menopausal syndrome Osteoarthritis of hip Recurrent UTI Sacroiliitis Trochanteric bursitis Surgical History History of appendectomy History of hysterectomy History of ileostomy with proctocolectomy, Revison of ileostomy x 2 History of surgery Thoracic Sympathetic Block w/cath, w/sed 10/13/1709/25 Thoracic Sympathetic Block w/cath, w/sed 10/07/2017 History of tonsillectomy and adenoidectomy History of tubal ligation Family History Father Heart disease Arthritis Hypertension Coronary heart disease Colitis Mother Heart disease Hypertension Melanoma Other Heart attack Social History marital status: education level: college occupational status: retired smoking status: Never smoker alcohol intake frequency: does not drink substance use type: does not use MEDS/ALLERGIES Home Medications and Allergies Home Medications Medication Instructions Recorded Confirmed Type acetaminophen 325 mg capsule 325 mg PO ONCE PRN Pain 08/24/20 08/31/22 History cyanocobalamin (vitamin B-12) 500 500 mcg PO QDAY 08/24/20 08/31/22 History mcg tablet donepezil 10 mg tablet 10 mg PO QDAY 08/24/20 08/31/22 History folic acid 400 mcg tablet 800 mcg PO QDAY 08/24/20 08/31/22 History gabapentin 100 mg capsule 100 mg PO QDAY 08/24/20 08/31/22 History levothyroxine 175 mcg capsule 175 mcg PO QDAY 08/24/20 08/31/22 History magnesium 250 mg tablet 400 mg PO QDAY 08/24/20 08/31/22 History memantine 10 mg tablet 10 mg PO BID 08/24/20 08/31/22 History omega 3-lqo-tlv-fish oil 1,200 mg 1 cap PO BID 08/24/20 08/31/22 History (144 mg-216 mg) capsule (Fish Oil) potassium citrate 10 mEq (1,080 1,080 mg PO BID 08/24/20 08/31/22 History mg) tablet,extended release calcium carbonate 600 mg-vitamin 1 tab PO DAILY 07/25/22 08/31/22 History D3 10 mcg (400 unit) chewable tablet (Calcium 600 with Vitamin D3) mirtazapine 7.5 mg tablet 7.5 mg PO QHS 07/25/22 08/31/22 History Glucosamine Chondroitin 1 cap PO BID 08/31/22 08/31/22 History selenium 200 mcg PO DAILY 08/31/22 08/31/22 History sodium bicarbonate 650 mg tablet 1 tab PO BID 08/31/22 08/31/22 History Allergies Allergy/AdvReac Type Severity Reaction Status Date / Time metoclopramide [From Reglan] AdvReac Intermediate Confusion Verified 08/12/22 16:05 promethazine [From Phenergan] AdvReac Intermediate Confusion Verified 08/12/22 16:05 Physical Examination Vital Signs Vital signs: Temp Pulse Resp BP Pulse Ox O2 Del Method 97.1 F 73 22 105/45 92 08/31/22 05:29 08/31/22 11:51 08/31/22 11:51 08/31/22 11:51 08/31/22 11:51 08/30/22 16:49 General Appearance General appearance: appears started age, chronically ill and fatigue EENT EENT: mucous membranes dry Respiratory Respiratory: clear Cardiovascular Cardiology: no edema, regular rate and regular rhythm Gastrointestinal Gastrointestinal: no tenderness Integumentary Integumentary: ecchymotic (periorbital L>R) Neurologic Neurologic: confused Musculoskeletal Musculoskeletal: joint swelling (left knee) Psychiatric Psychiatric: mood/affect appropriate and cooperative Results Lab Results Result Diagrams: 08/31/22 05:55 08/31/22 05:55 Lab results: Most recent lab results Calcium 8.3 mg/dL (8.6-10.4) L 08/31/22 05:55 A/P Assessment and plan (1) Acute renal failure superimposed on stage 4 chronic kidney disease: Assessment and plan: Janelle Rene is an 87-year-old female, being admitted on 08/31/22. She has dementia, s/p proctocolectomy and ileostomy, history of recurrent urinary tract infections, multiple bladder stones s/p removal by cystoscopy on 08/24/22, chronic kidney disease stage 4-5 (followed by Dr. Mejia). She presented to [facility] ED after a syncopal episode. Patient had a fall the previous night and was seen at [facility] ED. A left knee fracture was diagnosed. She was discharged home. In ED, she was found to be in acute kidney injury with hyperkalemia, metabolic acidosis and hyponatremia. She could not be transferred to a higher level of care. She made urine after IV fluids. Her creatinine and electrolyte abnormalities improved. She is being admitted for supportive care to hospitalist service. I saw her in ED with two daughters at the bedside. Nephrology consultation was requested for acute kidney injury. Acute kidney injury on chronic kidney disease stage 4 with initial hyperkalemia, metabolic acidosis and hyponatremia, present on arrival. There is no recent history of IV contrast administration or NSAID use. Urinalysis was consistent with acute cystitis. Intravascular volume depletion (with ileostomy) has been treated with IV fluid resuscitation. She has been followed by Dr. Mejia for nephrology. Baseline creatinine 1.9 (eGFR 23) on 03/03/22, 2.7 (eGFR 15) on 04/18/22. Chronic kidney disease was attributed to NSAIDs, obstructive nephropathy and hypertension. Previous workup: Renal US on 11/04/19: Small bilateral kidneys with renal cortical atrophy showing no acute findings on ultrasound. Work up: Urinalysis on 08/30/22: Yellow, turbid, pH 6.0, SG 1.025, protein 100, blood large, leukocyte esterase large, urine culture pending. Progress: Serum creatinine decreased from 10.7 to 8.9 in the past 24 hours. Baseline creatinine 1.9 (eGFR 23) on 03/03/22, 2.7 (eGFR 15) on 04/18/22. Urine output: 615 ml reported in the past 24 hours. Metabolic acidosis. Hyponatremia. Hyperkalemia, resolved. Discussion: I discussed the risks and benefits of hemodialysis with her two daughters at the bedside in ED. They would like the patient to have dialysis if needed. Recommendations/Plan: Transfer to a higher level of care was not possible and the patient is being admitted for supportive care to hospitalist service. No urgent acute hemodialysis need, but may be needed based on progress which will require transfer to higher level of care. Avoid NSAIDs, nephrotoxic medications and IV contrast. Monitor BMP and urine output. Status: Acute (2) Hyponatremia: Status: Acute (3) Hyperkalemia: Status: Acute Time Spent With Patient Time: Total time spent is greater than 50% in coordination of care (as documented) at patient's floor/unit and/or counseling patient:
[2022-08-31] MEDS ORDERED: ONDANSETRON 4 MG/2 ML VIAL IV PRN (12:21)
[2022-08-31] MEDS ORDERED: SENNOSIDES 1 TABLET PO PRN (12:21)
--- NOTE | 2022-08-31 12:32 | Internal Med History&Physical ---
HPI History of Present Illness Patient information: Note initiated : 08/31/22 at 12:28 pm Patient: Janelle Rene 87 y/o F admitted on for syncope. Chief complaint: Weakness, Near syncope, Fall. History of present illness: Ms. Rene is a 87 year old pleasant female brought to emergency room after an episode of syncope. 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 The Patient had a fal 08/29 and was seen at [facility]. She had bruised eyes bilaterally and left knee fracture. She was seen by orthopedic surgeon and recommended knee immobilization, pain control and partial weightbearing and follow-up as outpatient. Her head CT and x-ray was unremarkable. Yesterday patient was assisted with family to attempt to stand up. As the family was placing her back into her wheelchair, the patient had a brief syncopal episode. She had poor p.o. intake since her fall. Per family the patient is more confused than her usual which is alert oriented X3. In the emergency room patient was hypotensive despite IV fluid. She was started on Levophed drip. Currently she is on 8 ruben per hour At time of my evaluation patient is awake alert oriented X3. She seems comfortable talks full sentences. She complains of left knee pain otherwise no chest pain, shortness of breath, nausea, vomiting, headache, dizziness, lightheadedness, orthopnea. Patient found to be in acute on chronic renal failure with creatinine 10.7 from 2.7 and BUN of 148. Her potassium was 5.6 but repeat is 4.2. Patient is still makes urine and had a Townsend catheter. I do not see any indication for dialysis. Review of Systems All systems: reviewed and no additional remarkable complaints except as stated Review of systems: Except as documented all systems reviewed and negative PFSH PFSH All Active Problems Hyperkalemia (Acute) Acute renal failure superimposed on stage 4 chronic kidney disease (Acute) Hyponatremia (Acute) Influenza (Chronic) Dehydration (Chronic) Hip pain (Chronic) Osteoarthritis of hip (Chronic) Trochanteric bursitis (Chronic) Sacroiliitis (Chronic) Bronchitis (Chronic) Kidney failure (Chronic) Hypothyroidism (Chronic) Autoimmune disease (Chronic) Chronic pain (Chronic) Low back pain (Chronic) Menopausal syndrome (Chronic) Fatigue (Chronic) Malaise (Chronic) Joint pain (Chronic) Arthritis (Chronic) Chronic renal failure, stage 4 (severe) (Chronic) Lumbar back pain (Chronic) Herpes zoster (Chronic) History of surgery (Chronic) Abscess of breast, right (Acute) Recurrent UTI (Chronic) Bladder stones (Chronic) Syncope (Acute) SHIVA (acute kidney injury) (Acute) Medical History Arthritis Autoimmune disease Bronchitis Chronic pain Chronic renal failure, stage 4 (severe) Dehydration Fatigue Herpes zoster Hip pain Hyponatremia Hypothyroidism Influenza Joint pain Kidney failure Low back pain Lumbar back pain Malaise Menopausal syndrome Osteoarthritis of hip Recurrent UTI Sacroiliitis Trochanteric bursitis Surgical History History of appendectomy History of hysterectomy History of ileostomy with proctocolectomy, Revison of ileostomy x 2 History of surgery Thoracic Sympathetic Block w/cath, w/sed 10/13/1709/25 Thoracic Sympathetic Block w/cath, w/sed 10/07/2017 History of tonsillectomy and adenoidectomy History of tubal ligation Family History Father Heart disease Arthritis Hypertension Coronary heart disease Colitis Mother Heart disease Hypertension Melanoma Other Heart attack Social History marital status: education level: college occupational status: retired smoking status: Never smoker alcohol intake frequency: does not drink substance use type: does not use MEDS/ALLERGIES Home Medications and Allergies Home Medications Medication Instructions Recorded Confirmed Type acetaminophen 325 mg capsule 325 mg PO ONCE PRN Pain 08/24/20 08/31/22 History cyanocobalamin (vitamin B-12) 500 500 mcg PO QDAY 08/24/20 08/31/22 History mcg tablet donepezil 10 mg tablet 10 mg PO QDAY 08/24/20 08/31/22 History folic acid 400 mcg tablet 800 mcg PO QDAY 08/24/20 08/31/22 History gabapentin 100 mg capsule 100 mg PO QDAY 08/24/20 08/31/22 History levothyroxine 175 mcg capsule 175 mcg PO QDAY 08/24/20 08/31/22 History magnesium 250 mg tablet 400 mg PO QDAY 08/24/20 08/31/22 History memantine 10 mg tablet 10 mg PO BID 08/24/20 08/31/22 History omega 7-hmv-iyt-fish oil 1,200 mg 1 cap PO BID 08/24/20 08/31/22 History (144 mg-216 mg) capsule (Fish Oil) potassium citrate 10 mEq (1,080 1,080 mg PO BID 08/24/20 08/31/22 History mg) tablet,extended release calcium carbonate 600 mg-vitamin 1 tab PO DAILY 07/25/22 08/31/22 History D3 10 mcg (400 unit) chewable tablet (Calcium 600 with Vitamin D3) mirtazapine 7.5 mg tablet 7.5 mg PO QHS 07/25/22 08/31/22 History Glucosamine Chondroitin 1 cap PO BID 08/31/22 08/31/22 History selenium 200 mcg PO DAILY 08/31/22 08/31/22 History sodium bicarbonate 650 mg tablet 1 tab PO BID 08/31/22 08/31/22 History Allergies Allergy/AdvReac Type Severity Reaction Status Date / Time metoclopramide [From Reglan] AdvReac Intermediate Confusion Verified 08/12/22 16:05 promethazine [From Phenergan] AdvReac Intermediate Confusion Verified 08/12/22 16:05 EXAM Constitutional Vitals: Temp Pulse Resp BP Pulse Ox O2 Del Method 97.1 F 69 16 121/92 94 08/31/22 05:29 08/31/22 12:11 08/31/22 12:11 08/31/22 12:11 08/31/22 12:11 08/30/22 16:49 Exam: General: Well-developed, well-nourished pleasant elderly female feet both black eyes due to recent fall in no distress. HEENT: Bilateral periorbital hematoma due to recent fall, normocephalic.PERRLA, moist mucous membrane. Anicteric sclera Chest: No point tenderness.No point tenderness. Lungs: Clear to auscultation bilaterally. No rhonchi rales or crackles. No wheezing. No use of accessory muscle respiration. Cardiovascular: Regular rate and rhythm. S1 + S2, no murmur gallop rub. No peripheral edema. No JVD Extremities: Left knee moderate effusion tender range of motion. No ulcer. There is bruises around the left knee. GI: Ileostomy in place with liquid content, abdomen soft, nontender, positive bowel sounds. No hepatosplenomegaly. No rebound tenderness. No CVA tenderness. Sue sign is negative : No Townsend catheter. No bladder distention GERIATRIC NURSE ASSISTANT: Awake alert oriented x 2. Cranial nerves II through XII 12 grossly intact. Motor, sensory intact. Skin:Dry. Bruises in extremity due to recent fall Lymph: No lymphadenopathy Psychiatric: Normal mood and affect DATA Data Completed and Pending Labs: Labs from last 24 hours 08/31/22 08/31/22 08/31/22 05:55 05:55 05:55 WBC 10.3 RBC 3.69 Hgb 10.9 L Hct 33.6 L MCV 91.1 MCH 29.5 MCHC 32.4 RDW 14.8 H Plt Count 279 MPV 10.3 Immature Gran % (Auto) 0.5 Neut % (Auto) 56.3 Lymph % (Auto) 32.6 [place] % (Auto) 8.1 Eos % (Auto) 2.0 Baso % (Auto) 0.5 Lymph # (Auto) 3.36 [place] # (Auto) 0.84 Eos # (Auto) 0.21 Baso # (Auto) 0.05 Immature Gran # 0.05 Absolute Neutrophils 5.80 POC VBG pH POC VBG pCO2 at Temp POC VBG pO2 POC VBG HCO3 POC VBG Total CO2 POC Venous O2 Sat POC VBG Base Excess VBG Lactic Acid Sodium 127 L Potassium 4.2 Chloride 89 L Carbon Dioxide 21 L Anion Gap 17.0 H BUN 123 H* Creatinine 8.9 H* GFR Calculation 4 Glucose 99 Calcium 8.3 L Total Bilirubin 0.2 AST 14 ALT 9 Alkaline Phosphatase 71 Total Creatine Kinase 158 Total Protein 5.5 L Albumin 2.6 L Globulin 2.9 Albumin/Globulin Ratio 0.9 L Urine Color Urine Appearance Urine pH Ur Specific [place] Urine Protein Urine Glucose (UA) Urine Ketones Urine Occult Blood Urine Nitrate Urine Bilirubin Urine Urobilinogen Ur Leukocyte Esterase Urine RBC Urine WBC Ur Squamous Epith Cells Urine Bacteria Ur Culture Indicated? Urine Opiates Screen Ur Opiates Confirm Ur Oxycodone Screen U Oxycod/Oxymor Confirm Urine Methadone Screen Ur Methadone Confirm Ur Barbiturates Screen Ur Barbiturate Confirm Ur Phencyclidine Scrn Urine PCP Confirm Ur Amphetamines Screen U Amphetamines Confirm U Benzodiazepines Scrn Ur Benzodiazepine, Qnt Urine Cocaine Screen Urine Cocaine Confirm U Cannabinoids Confirm U Marijuana (THC) Screen Ethyl Alcohol mg/dL Ethyl Alcohol g/dL 08/30/22 08/30/22 08/30/22 19:00 19:00 17:43 WBC RBC Hgb Hct MCV MCH MCHC RDW Plt Count MPV Immature Gran % (Auto) Neut % (Auto) Lymph % (Auto) [place] % (Auto) Eos % (Auto) Baso % (Auto) Lymph # (Auto) [place] # (Auto) Eos # (Auto) Baso # (Auto) Immature Gran # Absolute Neutrophils POC VBG pH 7.41 POC VBG pCO2 at Temp 45.7 POC VBG pO2 41 H POC VBG HCO3 28.9 H POC VBG Total CO2 30.0 H POC Venous O2 Sat 76.0 H POC VBG Base Excess 4.0 H* VBG Lactic Acid 1.6 Sodium Potassium Chloride Carbon Dioxide Anion Gap BUN Creatinine GFR Calculation Glucose Calcium Total Bilirubin AST ALT Alkaline Phosphatase Total Creatine Kinase Total Protein Albumin Globulin Albumin/Globulin Ratio Urine Color Dk. yellow Urine Appearance Turbid A Urine pH 6.0 Ur Specific [place] 1.025 Urine Protein 100 A Urine Glucose (UA) Negative Urine Ketones Trace A Urine Occult Blood Large A Urine Nitrate Negative Urine Bilirubin Negative Urine Urobilinogen Normal Ur Leukocyte Esterase Large A Urine RBC > 182 H Urine WBC > 182 H Ur Squamous Epith Cells 0 Urine Bacteria Many A Ur Culture Indicated? yes Urine Opiates Screen Suspect positive A Ur Opiates Confirm Pending Ur Oxycodone Screen None detected U Oxycod/Oxymor Confirm TNP Urine Methadone Screen None detected Ur Methadone Confirm TNP Ur Barbiturates Screen None detected Ur Barbiturate Confirm TNP Ur Phencyclidine Scrn None detected Urine PCP Confirm TNP Ur Amphetamines Screen None detected U Amphetamines Confirm TNP U Benzodiazepines Scrn None detected Ur Benzodiazepine, Qnt TNP Urine Cocaine Screen None detected Urine Cocaine Confirm TNP U Cannabinoids Confirm TNP U Marijuana (THC) Screen None detected Ethyl Alcohol mg/dL Ethyl Alcohol g/dL 08/30/22 08/30/22 08/30/22 16:55 16:55 16:55 WBC 11.2 H RBC 4.12 Hgb 12.3 Hct 36.7 MCV 89.1 MCH 29.9 MCHC 33.5 RDW 14.7 H Plt Count 307 MPV 10.4 Immature Gran % (Auto) 0.4 Neut % (Auto) 66.7 Lymph % (Auto) 25.6 [place] % (Auto) 6.3 Eos % (Auto) 0.6 Baso % (Auto) 0.4 Lymph # (Auto) 2.87 [place] # (Auto) 0.71 Eos # (Auto) 0.07 Baso # (Auto) 0.04 Immature Gran # 0.04 Absolute Neutrophils 7.50 POC VBG pH POC VBG pCO2 at Temp POC VBG pO2 POC VBG HCO3 POC VBG Total CO2 POC Venous O2 Sat POC VBG Base Excess VBG Lactic Acid Sodium 126 L Potassium 5.6 H Chloride 77 L Carbon Dioxide 28 Anion Gap 21.0 H BUN 148 H* Creatinine 10.7 H* GFR Calculation 3 Glucose 118 H Calcium 9.4 Total Bilirubin 0.3 AST 19 ALT 11 Alkaline Phosphatase 98 Total Creatine Kinase Total Protein 6.6 Albumin 3.6 Globulin 3.0 Albumin/Globulin Ratio 1.2 Urine Color Urine Appearance Urine pH Ur Specific [place] Urine Protein Urine Glucose (UA) Urine Ketones Urine Occult Blood Urine Nitrate Urine Bilirubin Urine Urobilinogen Ur Leukocyte Esterase Urine RBC Urine WBC Ur Squamous Epith Cells Urine Bacteria Ur Culture Indicated? Urine Opiates Screen Ur Opiates Confirm Ur Oxycodone Screen U Oxycod/Oxymor Confirm Urine Methadone Screen Ur Methadone Confirm Ur Barbiturates Screen Ur Barbiturate Confirm Ur Phencyclidine Scrn Urine PCP Confirm Ur Amphetamines Screen U Amphetamines Confirm U Benzodiazepines Scrn Ur Benzodiazepine, Qnt Urine Cocaine Screen Urine Cocaine Confirm U Cannabinoids Confirm U Marijuana (THC) Screen Ethyl Alcohol mg/dL < 10.0 Ethyl Alcohol g/dL < 0.010 Impressions Impressions: CT head noncontrast: IMPRESSION: Mild atrophy and chronic ischemic changes in the deep cerebral white matter-expected for age. No intracerebral hemorrhage. Small scalp hematoma over the left frontal calvaria Chest x-ray: Normal chest. No acute finding A/P Sepsis Sepsis Identified: No Narrative A/P Narrative: Pleasant 87 years old female with past medical history significant for chronic kidney disease stage IV, history of ulcerative colitis status post total colectomy and ileostomy brought to emergency room with following problem list: #Acute on chronic Stage IV kidney injury. Nonoliguric -Most likely ATN due to poor p.o. intake/hypotension CPK 158 -Baseline BUN/creatinine 67/2.7. On admit 148/10.7, potassium 5.6, no acidemia. -No indication for dialysis. Patient received 2 L IV fluid and her renal function trending down -Admit to ICU. BMP every 6 hours -Continue IV fluid. Change Levophed drip to dopamine for better renal perfusion -Keep systolic blood pressure more than 130. Strict I's and O's. Avoid nephrotoxic agent. -Nephrology has been consulted #Hypovolemic shock. -Due to poor p.o. intake. No signs of bleeding. Hemoglobin is stable. -Started on Levophed drip in the emergency room. Changed to dopamine drip. -Keep systolic blood pressure over 130 and continue IV fluid #Hyperkalemia due to SHIVA. Resolved and currently 4.2 #Hyponatremia. Most likely due to hypovolemia. Currently 127 from 126 -Continue NS at 125/h and BMP every 6 hours #Bacteriuria. Patient has Townsend catheter. She is unaware of dysuria -I will empirically treat with Rocephin 1 g daily and follow urine culture # Gap Metabolic Acidosis. - Due to SHIVA. Resolved. Cont home Bicarb PO #Recent fall with left knee fracture. -Patient was seen by orthopedic surgery at [facility]. Recommend partial weightbearing and immobilizer -We will try to get records from [facility] #History of ulcerative colitis, status post total colectomy and ileostomy -High output ileostomy. Continue IV fluid to match I/os #Dementia. Baseline alert oriented X3 -Continue donezepil and memantine CODE STATUS: Full code DVT prophylaxis: Heparin 5000 twice daily Alternative decision maker: Patient's daughter. I have discussed with patient, her daughter and grandson Madi in detail and answered all her question. Time Spent With Patient Time: Total time spent is greater than 50% in coordination of care (as documented) at patient's floor/unit and/or counseling patient: Total time spent with greater than 50% in coordination of care (as documented) at patient's floor/unit and/or counseling patient:: Greater than 70 minutes Critical Care Time: Yes Total Critical Care Time: 72
[2022-08-31] MEDS: DOPamine 400 MG/250 ML BAG IV SCH (12:35)
[2022-08-31] MEDS ORDERED: ALBUMIN HUMAN 25 GM/100 ML BAG IV SCH (12:45)
[2022-08-31 14:20] LABS: Blood Urea Nitrogen 120 mg/dL (8-23); Calcium 8.4 mg/dL (8.6-10.4); Carbon Dioxide 24 mmol/L (22-30); Chloride 89 mmol/L (96-108); Glomerular Filtration Rate 4; Glucose 107 mg/dL (70-105)
[2022-08-31] MEDS: 0.9 % SODIUM CHLORIDE 10 ML SYRINGE IV SCH ×2 (14:34→23:28)
[2022-08-31 22:02] LABS: Blood Urea Nitrogen 105 mg/dL (8-23); Calcium 8.2 mg/dL (8.6-10.4); Carbon Dioxide 21 mmol/L (22-30); Chloride 89 mmol/L (96-108); Glomerular Filtration Rate 5; Glucose 124 mg/dL (70-105)
[2022-08-31] MEDS ORDERED: cefTRIAXone 2 GM VIAL ONE (22:31)
[2022-08-31] MEDS: cefTRIAXone 2 GM in DEXTROSE 5% IN WATER 50 ML IV SCH (23:20)
[2022-08-31] MEDS: HEPARIN 5,000 UNIT/ML VIAL SQ SCH (23:26)
[2022-08-31] MEDS: MIRTAZAPINE 15 MG TABLET PO SCH (23:28)
[2022-08-31] MEDS: SODIUM BICARBONATE 650 MG TABLET PO SCH (23:28)
[2022-08-31] MEDS: MEMANTINE 10 MG TABLET PO SCH (23:28)
[2022-09-01] MEDS: NOREPINEPHRINE BITARTRATE 16 MG in 0.9 % SODIUM CHLORIDE 234 ML IV SCH (00:26)
[2022-09-01] MEDS: 0.9 % SODIUM CHLORIDE 250 ML IV SCH ×4 (03:33→16:04)
[2022-09-01] MEDS: DOPamine 400 MG in PREMIX 1 BAG IV SCH ×2 (03:37→16:03)
[2022-09-01] MEDS: 0.9 % SODIUM CHLORIDE 1,000 ML IV SCH ×5 (05:09→23:53)
[2022-09-01] MEDS: DOPamine 400 MG/250 ML BAG IV SCH (06:58)
[2022-09-01] MEDS: LEVOTHYROXINE 25 MCG TABLET PO SCH (07:20)
[2022-09-01] MEDS: LEVOTHYROXINE 150 MCG TABLET PO SCH (07:20)
[2022-09-01] MEDS: 0.9 % SODIUM CHLORIDE 10 ML SYRINGE IV SCH ×3 (07:20→20:45)
[2022-09-01 07:31] LABS: Creatine Kinase 110 U/L (24-170)
[2022-09-01 07:45] LABS: Phosphorous 6.7 mg/dL (2.5-4.5)
[2022-09-01] MEDS: SODIUM BICARBONATE 650 MG TABLET PO SCH ×2 (08:34→20:45)
[2022-09-01] MEDS: GABAPENTIN 100 MG CAPSULE PO SCH (08:34)
[2022-09-01] MEDS: DONEPEZIL 10 MG TABLET PO SCH (08:34)
[2022-09-01] MEDS: MEMANTINE 10 MG TABLET PO SCH ×2 (08:34→20:45)
[2022-09-01] MEDS: HEPARIN 5,000 UNIT/ML VIAL SQ SCH ×2 (08:34→20:45)
[2022-09-01] MEDS: FOLIC ACID 1 MG TABLET PO SCH (08:34)
[2022-09-01 08:54] LABS: Basophils # (Auto) 0.03 K/mcL (0.00-0.30); Basophils % (Auto) 0.3 % (0.0-2.0); Eosinophils # (Auto) 0.13 K/mcL (0.00-0.70); Eosinophils % (Auto) 1.4 % (0.0-7.0); Hematocrit 35.2 % (34.1-44.9); Hemoglobin 11.6 g/dL (11.2-15.7); Lymphocytes # (Auto) 1.52 K/mcL (1.50-4.80); Mean Cell Volume 88.2 fL (80.0-100.0); Mean Platelet Volume 9.9 fL (8.8-12.5); Monocytes # (Auto) 0.56 K/mcL (0.10-0.90); Monocytes % (Auto) 5.9 % (1.0-12.0); Neutrophils % (Auto) 75.7 % (38.0-78.0); Platelet Count 255 K/mcL (140-440); RBC 3.99 M/mcL (3.59-5.38); Red Cell Distribution Width 14.6 % (11.5-14.5); WBC 9.5 K/mcL (4.5-11.0)
[2022-09-01 08:56] LABS: ALT/SGPT 7 U/L (<40); AST/SGOT 18 U/L (<32); Albumin 2.7 gm/dL (3.2-5.2); Albumin/Globulin Ratio 0.9 (1.0-2.3); Alkaline Phosphatase 69 U/L (39-117); Bilirubin,Total 0.2 mg/dL (0.1-1.0); Blood Urea Nitrogen 98 mg/dL (8-23); Calcium 8.4 mg/dL (8.6-10.4); Carbon Dioxide 15 mmol/L (22-30); Chloride 93 mmol/L (96-108); Glomerular Filtration Rate 5; Glucose 82 mg/dL (70-105)
--- NOTE | 2022-09-01 11:10 | Nephrology Progress Note ---
SUBJECTIVE Subjective Patient information: Note initiated : 09/01/22 at 11:07 am Patient: Janelle Rene 87 y/o F admitted on 08/31/22 for syncope. Chief Complaint: Altered mental status Pertinent ROS: Weakness Confusion, improved Townsend catheter Ileostomy Left knee pain Constitutional Vitals: Vital Signs Temp Pulse Resp BP Pulse Ox O2 Del Method O2 Flow Rate 98.2 F 78 15 100/47 98 2 09/01/22 04:01 09/01/22 10:12 09/01/22 10:12 09/01/22 10:12 09/01/22 10:12 09/01/22 07:29 09/01/22 04:01 Period Temp Pulse Resp BP Sys/Mistry Pulse Ox O2 Del Method O2 Flow Rate Last 24 Hr 97.1 F-98.3 F 58-93 8-38 72-159/36-140 87-100 Nasal Cannula- Room Air 0-2 Intake and Output 08/31/22 09/01/22 09/01/22 19:59 03:59 11:59 Intake Total 1184 1188 1371 Output Total 059 681 7180 Balance 964 348 321 Weight 168 lb 6.4 oz 168 lb 8 oz Intake & Output: Intake & Output 08/31/22 09/01/22 09/01/22 19:59 03:59 11:59 Intake Total 1184 1188 1371 Output Total 512 467 5110 Balance 964 348 321 Weight 168 lb 6.4 oz 168 lb 8 oz Intake: IV 1184 1188 1121 Sodium Chloride 0.9% 1,000 ml @ 1000 804 990 125 mls/hr IV .Q8H [facility] Rx#: [id number] Sodium Chloride 0.9% 250 ml @ 194 20 mls/hr IV .[id number] [facility] Rx#: [id number] BUMINATE 25 gm In 100 ml @ 100 100 mls/hr IV 1245 [facility] Rx#: [id number] DOPamine 400 MG In Premix 1 Bag 84 140 131 @ 5 MCG/KG/MIN 14.373 mls/hr IV .[id number] [facility] Rx#:[id number] Rocephin 2 gm In Dextrose 5% in 50 Water 50 ml @ 100 mls/hr IV Q24H [facility] Rx#:[id number] Oral 250 Output: Urine Catheter Amount 160 640 900 Void Amount 60 200 Stool 150 Other: Meal Dinner Breakfast Percent of Meal Consumed 10 75% Feeding Ability Assist with Tray Set Up Urine Appearance Cloudy Clear Clear Sediment Uretheral (Townsend) Cloudy Clear Clear Urine Color Yellow Yellow Yellow Pale Pale Uretheral (Townsend) Yellow Yellow Yellow Pale Pale Urine Odor Normal Uretheral (Townsend) Normal Stool Size Moderate Stool Color Green Stool Consistency Liquid Loose General appearance: cooperative and no acute distress Head Head exam: Present normal inspection Eye Eye exam: Present normal appearance ENT ENT exam: Present mucous membranes moist Respiratory Respiratory exam: Absent respiratory distress Cardiovascular Cardiovascular exam: Present normal rate and rhythm GI/Abdominal GI/Abdominal exam: Present soft; Absent tenderness Extremities Exam Extremities exam: Absent joint swelling or pedal edema Neurological Exam Neurological exam: Present alert Psychiatric Psychiatric exam: Present normal affect and normal mood Skin Skin exam: Present warm; Absent rash Additional comments: bilateral periorbital ecchymosis A/P Assessment and plan (1) Acute renal failure superimposed on stage 4 chronic kidney disease: Assessment and plan: Janelle Rene is an 87-year-old female, admitted on 08/31/22. She has dementia, s/p proctocolectomy with ileostomy, history of recurrent urinary tract infections, multiple bladder stones s/p removal by cystoscopy on 08/24/22, chronic kidney disease stage 4-5 (followed by Dr. Mejia). She presented to [facility] ED after a syncopal episode. Patient had a fall the previous night and was seen at [facility]. A left knee fracture was diagnosed. She was discharged home. In ED, she was found to be in acute kidney injury with hyperkalemia, metabolic acidosis and hyponatremia. She could not be transferred to a higher level of care. She had urine output after IV fluids. Her creatinine and electrolyte abnormalities improved. I saw her in ED with two daughters at the bedside. Nephrology consultation was requested for acute kidney injury. Acute kidney injury on chronic kidney disease stage 4 with initial hyperkalemia, metabolic acidosis and hyponatremia, present on arrival. There is no recent history of IV contrast administration or NSAID use. Urinalysis was consistent with acute cystitis. Intravascular volume depletion (with ileostomy) treated with IV fluid resuscitation. She has been followed by Dr. Mejia for nephrology. Baseline creatinine 1.9 (eGFR 23) on 03/03/22, 2.7 (eGFR 15) on 04/18/22. Chronic kidney disease was attributed to NSAIDs, obstructive nephropathy and hypertension. Previous workup: Renal US on 11/04/19: Small bilateral kidneys with renal cortical atrophy showing no acute findings on ultrasound. Work up: Urinalysis on 08/30/22: Yellow, turbid, pH 6.0, SG 1.025, protein 100, blood large, leukocyte esterase large, urine culture pending. Progress: Serum creatinine decreased from 7.2 to 6.5 in the past 8 hours. Baseline creatinine 1.9 (eGFR 23) on 03/03/22, 2.7 (eGFR 15) on 04/18/22. Urine output: 800 ml reported in the past 24 hours. Metabolic acidosis. Hyponatremia. Hyperkalemia, resolved. Discussion: Risks and benefits of hemodialysis discussed with her two daughters at the bedside in ED. They would like the patient to have dialysis if needed. Her daughter informed at bedside today. Recommendations/Plan: No urgent acute hemodialysis need. Avoid NSAIDs, nephrotoxic medications and IV contrast. Monitor BMP and urine output. Status: Acute (2) Hyponatremia: Status: Acute (3) Hyperkalemia: Status: Acute Time Spent With Patient Time: Total time spent is greater than 50% in coordination of care (as documented) at patient's floor/unit and/or counseling patient:
--- NOTE | 2022-09-01 12:37 | Internal Med Progress Note ---
SUBJECTIVE Subjective Patient information: Note initiated : 09/01/22 at 12:30 pm Patient: Janelle Rene 87 y/o F admitted on 08/31/22 for syncope. Interval history: She has off-and-on confusion/disorientation especially during night. Currently is comfortable, awake alert oriented x2. Daughter at bedside.Patient is feeling well. She is a still on dopamine drip 7 ruben. She has good urine output about 800 cc. Creatinine is slightly trending down. Patient does not seem to be volume overloaded. She has ileostomy leaking and stucco worker working to fix it. No reported fever chills cough chest pain shortness of breath nausea vomiting abdominal pain. Pertinent ROS: Except as documented all systems reviewed and negative Constitutional Vitals: Vital Signs Temp Pulse Resp BP Pulse Ox O2 Del Method O2 Flow Rate 98.2 F 67 10 L 119/59 97 2 09/01/22 04:01 09/01/22 12:11 09/01/22 12:11 09/01/22 12:11 09/01/22 12:11 09/01/22 07:29 09/01/22 04:01 Period Temp Pulse Resp BP Sys/Mistry Pulse Ox O2 Del Method O2 Flow Rate Last 24 Hr 97.1 F-98.3 F 60-93 8-38 72-159/36-140 87-100 Nasal Cannula- Room Air 0-2 Intake and Output 09/01/22 09/01/22 09/01/22 03:59 11:59 19:59 Intake Total 1188 1371 Output Total 840 1365 Balance 348 6 Weight 76.43 kg Intake & Output: Intake & Output 09/01/22 09/01/22 09/01/22 03:59 11:59 19:59 Intake Total 1188 1371 Output Total 840 1365 Balance 348 6 Weight 76.43 kg Intake: IV 1188 1121 Sodium Chloride 0.9% 1,000 ml @ 804 990 125 mls/hr IV .Q8H [facility] Rx#: [id number] Sodium Chloride 0.9% 250 ml @ 194 20 mls/hr IV .[id number] [facility] Rx#: [id number] DOPamine 400 MG In Premix 1 Bag 140 131 @ 5 MCG/KG/MIN 14.373 mls/hr IV .[id number] [facility] Rx#:[id number] Rocephin 2 gm In Dextrose 5% in 50 Water 50 ml @ 100 mls/hr IV Q24H [facility] Rx#:[id number] Oral 250 Output: Urine Catheter Amount 640 1065 Void Amount 200 Stool 300 Other: Meal Dinner Breakfast Percent of Meal Consumed 10 75% Feeding Ability Assist with Tray Set Up Urine Appearance Clear Clear Clear Sediment Uretheral (Townsend) Clear Clear Urine Color Yellow Yellow Yellow Pale Pale Pale Uretheral (Townsend) Yellow Yellow Pale Pale Urine Odor Normal Uretheral (Townsend) Normal Stool Size Moderate Moderate Stool Color Green Green Stool Consistency Liquid Watery Watery Loose General: Well-developed, well-nourished pleasant elderly female feet both black eyes due to recent fall in no distress. HEENT: Bilateral periorbital hematoma due to recent fall, normocephalic.PERRLA, moist mucous membrane. Anicteric sclera Chest: No point tenderness.No point tenderness. Lungs: Clear to auscultation bilaterally. No rhonchi rales or crackles. No wheezing. No use of accessory muscle respiration. Cardiovascular: Regular rate and rhythm. S1 + S2, no murmur gallop rub. No peripheral edema. No JVD Extremities: Left knee moderate effusion tender range of motion. No ulcer. There is bruises around the left knee. GI: Ileostomy in place with liquid content, abdomen soft, nontender, positive bowel sounds. No hepatosplenomegaly. No rebound tenderness. No CVA tenderness. Sue sign is negative : Townsend catheter in place with clear urine FOUNDER: Awake alert oriented x 2. Cranial nerves II through XII 12 grossly intact. Motor, sensory intact. Skin:Dry. Bruises in extremity due to recent fall Psychiatric: Normal mood and affect OBJ DATA Labs CBC & Chem 7: 09/01/22 08:33 09/01/22 05:22 Labs: Abnormal Lab Results 09/01/22 09/01/22 09/01/22 08:33 05:22 05:22 WBC Hgb Hct RDW 14.6 H Immature Gran % (Auto) 0.7 H Immature Gran # 0.07 H POC VBG pO2 POC VBG HCO3 POC VBG Total CO2 POC Venous O2 Sat POC VBG Base Excess Sodium 129 L Potassium Chloride 93 L Carbon Dioxide 15 L Anion Gap 21.0 H BUN 98 H Creatinine 6.5 H* Glucose Calcium 8.4 L Phosphorus 6.7 H* Magnesium 3.0 H Total Protein 5.7 L Albumin 2.7 L Albumin/Globulin Ratio 0.9 L Urine Appearance Urine Protein Urine Ketones Urine Occult Blood Ur Leukocyte Esterase Urine RBC Urine WBC Urine Bacteria Urine Opiates Screen 08/31/22 08/31/22 08/31/22 20:37 12:59 05:55 WBC Hgb Hct RDW Immature Gran % (Auto) Immature Gran # POC VBG pO2 POC VBG HCO3 POC VBG Total CO2 POC Venous O2 Sat POC VBG Base Excess Sodium 124 L 127 L 127 L Potassium Chloride 89 L 89 L 89 L Carbon Dioxide 21 L 21 L Anion Gap 17.0 H BUN 105 H* 120 H* 123 H* Creatinine 7.2 H* 7.5 H* 8.9 H* Glucose 124 H 107 H Calcium 8.2 L 8.4 L 8.3 L Phosphorus Magnesium Total Protein 5.5 L Albumin 2.6 L Albumin/Globulin Ratio 0.9 L Urine Appearance Urine Protein Urine Ketones Urine Occult Blood Ur Leukocyte Esterase Urine RBC Urine WBC Urine Bacteria Urine Opiates Screen 08/31/22 08/30/22 08/30/22 05:55 19:00 19:00 WBC Hgb 10.9 L Hct 33.6 L RDW 14.8 H Immature Gran % (Auto) Immature Gran # POC VBG pO2 POC VBG HCO3 POC VBG Total CO2 POC Venous O2 Sat POC VBG Base Excess Sodium Potassium Chloride Carbon Dioxide Anion Gap BUN Creatinine Glucose Calcium Phosphorus Magnesium Total Protein Albumin Albumin/Globulin Ratio Urine Appearance Turbid A Urine Protein 100 A Urine Ketones Trace A Urine Occult Blood Large A Ur Leukocyte Esterase Large A Urine RBC > 182 H Urine WBC > 182 H Urine Bacteria Many A Urine Opiates Screen Suspect positive A 08/30/22 08/30/22 08/30/22 17:43 16:55 16:55 WBC 11.2 H Hgb Hct RDW 14.7 H Immature Gran % (Auto) Immature Gran # POC VBG pO2 41 H POC VBG HCO3 28.9 H POC VBG Total CO2 30.0 H POC Venous O2 Sat 76.0 H POC VBG Base Excess 4.0 H* Sodium 126 L Potassium 5.6 H Chloride 77 L Carbon Dioxide Anion Gap 21.0 H BUN 148 H* Creatinine 10.7 H* Glucose 118 H Calcium Phosphorus Magnesium Total Protein Albumin Albumin/Globulin Ratio Urine Appearance Urine Protein Urine Ketones Urine Occult Blood Ur Leukocyte Esterase Urine RBC Urine WBC Urine Bacteria Urine Opiates Screen Meds: Medications Acetaminophen (Acetaminophen 325 Mg Tablet) 650 mg PO Q4-6HP PRN; Protocol PRN Reason: Per Pain Protocol/Fever > 101 Donepezil HCl (Donepezil 10 Mg Tablet) 10 mg PO QDAY [facility] Last Admin: 09/01/22 08:34 Dose: 10 mg Folic Acid (Folic Acid 1 Mg Tablet) 1 mg PO DAILY [facility] Last Admin: 09/01/22 08:34 Dose: 1 mg Gabapentin (Gabapentin 100 Mg Capsule) 100 mg PO QDAY [facility] Last Admin: 09/01/22 08:34 Dose: 100 mg Heparin Sodium (Porcine) (Heparin 5,000 Unit/Ml Vial) 5,000 unit SQ Q12 [facility] Last Admin: 09/01/22 08:34 Dose: 5,000 unit Ceftriaxone Sodium 2 gm/ (Dextrose) 50 mls @ 100 mls/hr IV Q24H [facility]; Protocol Last Infusion: 08/31/22 23:50 Dose: Infused Norepinephrine Bitartrate 16 (mg/ Sodium Chloride) 250 mls @ 9.375 mls/hr IV Q24H [facility]; Protocol Last Admin: 09/01/22 00:26 Dose: Not Given Sodium Chloride (Sodium Chloride 0.9%) 250 mls @ 20 mls/hr IV .[id number] [facility] Last Admin: 09/01/22 03:33 Dose: 20 mls/hr Dopamine HCl/Dextrose 400 mg/ (Premix) 250 mls @ 14.373 mls/hr IV .[id number] [facility]; Protocol Last Titration: 09/01/22 09:22 Dose: 7 mcg/kg/min, 20.122 mls/hr Sodium Chloride (Sodium Chloride 0.9%) 250 mls @ 20 mls/hr IV .[id number] [facility] Last Admin: 09/01/22 10:59 Dose: Not Given Sodium Chloride (Sodium Chloride 0.9%) 1,000 mls @ 125 mls/hr IV .Q8H [facility] Last Admin: 09/01/22 10:59 Dose: Not Given Levothyroxine Sodium (Levothyroxine 150 Mcg Tablet) 150 mcg PO QAMAC [facility] Last Admin: 09/01/22 07:20 Dose: 150 mcg Levothyroxine Sodium (Levothyroxine 25 Mcg Tablet) 25 mcg PO QAMAC [facility] Last Admin: 09/01/22 07:20 Dose: 25 mcg Memantine (Memantine 10 Mg Tablet) 10 mg PO BID [facility] Last Admin: 09/01/22 08:34 Dose: 10 mg Mirtazapine (Mirtazapine 15 Mg Tablet) 7.5 mg PO QHS [facility] Last Admin: 08/31/22 23:28 Dose: 7.5 mg Ondansetron HCl (Ondansetron 4 Mg/2 Ml Vial) 4 mg IV Q4-6HP PRN; Protocol PRN Reason: Nausea And Vomiting Last Admin: 08/31/22 23:07 Dose: 4 mg Senna (Sennosides 1 Tablet) 1 tab PO HSP PRN PRN Reason: Constipation Sodium Bicarbonate (Sodium Bicarbonate 650 Mg Tablet) 650 mg PO BID [facility] Last Admin: 09/01/22 08:34 Dose: 650 mg Sodium Chloride (0.9 % Sodium Chloride 10 Ml Syringe) 10 ml IV Q8 [facility] Last Admin: 09/01/22 07:20 Dose: 10 ml A/P Narrative A/P Narrative: Pleasant 87 years old female with past medical history significant for chronic kidney disease stage IV, history of ulcerative colitis status post total colectomy and ileostomy brought to emergency room with following problem list: #Acute on chronic Stage IV kidney injury. Nonoliguric -Most likely ATN due to poor p.o. intake/hypotension CPK 158 - Renal US on 11/04/19: Small bilateral kidneys with renal cortical atrophy showing no acute findings on ultrasound. - UA SG 1.025, protein 100, blood large, leukocyte esterase large, urine culture pending. -Baseline BUN/creatinine 67/2.7. On admit 148/10.7, potassium 5.6, no acidemia. -No indication for dialysis. Patient received 2 L IV fluid and her renal function trending down -Cont ICU monitoring. -Continue IV fluid and Dopamine gtt -Keep systolic blood pressure more than 130. Strict I's and O's. Avoid nephrotoxic agent. -Nephrology following. #Hypovolemic shock. -Due to poor p.o. intake and high output ileostomy. No signs of bleeding. Hemoglobin is stable. -Continue Dopamine drip, IV fluid -Keep systolic blood pressure over 130 and continue IV fluid #Hyperkalemia due to SHIVA. Resolved and currently 4.2 #Hyponatremia. Most likely due to hypovolemia. Currently 129 from 126 -Continue NS at 125/h and BMP every 6 hours #Bacteriuria. Patient has Townsend catheter. She is unaware of dysuria -Treat empirically with Rocephin 1 g daily and follow urine culture. Treat 3-5 days total # Gap Metabolic Acidosis. - Due to SHIVA. Resolved. Cont home Bicarb PO #Recent fall with left knee fracture. #Acute traumatic L.knee Fracture. Will D/w Ortho -Patient was seen by orthopedic surgery at [facility]. Recommend partial weightbearing and immobilizer -Get records from [facility] #History of ulcerative colitis, status post total colectomy and ileostomy -High output ileostomy. Continue IV fluid to match I/os #Dementia. Baseline alert oriented X3 -Continue Donepezil and memantine CODE STATUS: Full code DVT prophylaxis: Heparin 5000 twice daily Alternative decision maker: Patient's daughter. I have discussed with patient, her daughter and grandson Madi in detail and answered all her question. Time Spent With Patient Time: Total time spent is greater than 50% in coordination of care (as documented) at patient's floor/unit and/or counseling patient: Total time spent with greater than 50% in coordination of care (as documented) at patient's floor/unit and/or counseling patient:: 35 - 50 minutes Critical Care Time: Yes Total Critical Care Time: 44 QUALITY VTE Deep Vein Thrombosis/Pulmonary Embolism Present on Admission: No
[2022-09-01] MEDS: cefTRIAXone 2 GM in DEXTROSE 5% IN WATER 50 ML IV SCH (20:00)
[2022-09-01] MEDS: MIRTAZAPINE 15 MG TABLET PO SCH (20:45)
[2022-09-01] MEDS: QUEtiapine 25 MG TABLET PO PRN (22:22)
[2022-09-02] MEDS: NOREPINEPHRINE BITARTRATE 16 MG in 0.9 % SODIUM CHLORIDE 234 ML IV SCH (02:51)
[2022-09-02] MEDS: 0.9 % SODIUM CHLORIDE 250 ML IV SCH ×5 (02:53→17:04)
[2022-09-02] MEDS: DOPamine 400 MG in PREMIX 1 BAG IV SCH ×3 (02:54→17:00)
[2022-09-02] MEDS: ACETAMINOPHEN 325 MG TABLET PO PRN ×2 (05:36→15:00)
[2022-09-02 07:17] LABS: Blood Urea Nitrogen 73 mg/dL (8-23); Calcium 8.1 mg/dL (8.6-10.4); Carbon Dioxide 20 mmol/L (22-30); Chloride 100 mmol/L (96-108); Glomerular Filtration Rate 8; Glucose 90 mg/dL (70-105)
[2022-09-02] MEDS: 0.9 % SODIUM CHLORIDE 1,000 ML IV SCH ×3 (08:22→20:17)
[2022-09-02] MEDS: HEPARIN 5,000 UNIT/ML VIAL SQ SCH ×2 (08:29→22:16)
[2022-09-02] MEDS: SODIUM BICARBONATE 650 MG TABLET PO SCH ×2 (08:29→22:17)
[2022-09-02] MEDS: DONEPEZIL 10 MG TABLET PO SCH (08:29)
[2022-09-02] MEDS: FOLIC ACID 1 MG TABLET PO SCH (08:29)
[2022-09-02] MEDS: MEMANTINE 10 MG TABLET PO SCH ×2 (08:29→22:17)
[2022-09-02] MEDS: LEVOTHYROXINE 150 MCG TABLET PO SCH (08:29)
[2022-09-02] MEDS: GABAPENTIN 100 MG CAPSULE PO SCH (08:29)
[2022-09-02] MEDS: LEVOTHYROXINE 25 MCG TABLET PO SCH (08:29)
[2022-09-02] MEDS: 0.9 % SODIUM CHLORIDE 10 ML SYRINGE IV SCH ×3 (08:35→22:17)
--- NOTE | 2022-09-02 09:48 | Nephrology Progress Note ---
SUBJECTIVE Subjective Patient information: Note initiated : 09/02/22 at 9:48 am Patient: Janelle Rene 87 y/o F admitted on 08/31/22 for syncope. Chief Complaint: Altered mental status Pertinent ROS: Altered mental status improved Weakness Left knee pain Townsend catheter with clear urine output Ileostomy Constitutional Vitals: Vital Signs Temp Pulse Resp BP Pulse Ox O2 Del Method O2 Flow Rate 99.2 F H 94 H 19 94/57 93 2 09/02/22 08:01 09/02/22 09:30 09/02/22 09:30 09/02/22 09:30 09/02/22 09:30 09/02/22 08:01 09/02/22 08:01 Period Temp Pulse Resp BP Sys/Mistry Pulse Ox O2 Del Method O2 Flow Rate Last 24 Hr 97.1 F-99.2 F 64-94 8-32 81-128/39-107 82-100 Nasal Cannula- Room Air 0-2 Intake and Output 09/01/22 09/02/22 09/02/22 19:59 03:59 11:59 Intake Total 1624 1050 1612 Output Total 1285 1050 645 Balance 339 0 967 Weight 168 lb 14.4 oz Intake & Output: Intake & Output 09/01/22 09/02/22 09/02/22 19:59 03:59 11:59 Intake Total 1624 1050 1612 Output Total 1285 1050 645 Balance 339 0 967 Weight 168 lb 14.4 oz Intake: IV 1384 1050 1462 Sodium Chloride 0.9% 1,000 ml @ 979 1000 1000 125 mls/hr IV .Q8H [facility] Rx#: [id number] Sodium Chloride 0.9% 250 ml @ 250 248 20 mls/hr IV .[id number] [facility] Rx#: [id number] DOPamine 400 MG In Premix 1 Bag 155 214 @ 5 MCG/KG/MIN 14.373 mls/hr IV .[id number] [facility] Rx#:[id number] Rocephin 2 gm In Dextrose 5% in 50 Water 50 ml @ 100 mls/hr IV Q24H [facility] Rx#:[id number] Oral 240 150 Output: Urine Catheter Amount 1010 975 641 Stool 275 75 4 Other: Meal Dinner Percent of Meal Consumed 50% Feeding Ability Assist with Tray Set Up Urine Appearance Clear Clear Clear Uretheral (Townsend) Clear Clear Clear Sediment Mucous Threads Urine Color Yellow Yellow Bright Yellow Uretheral (Townsend) Yellow Yellow Yellow Urine Odor Normal Normal Stool Size Moderate Stool Color Green Green Green Stool Consistency Liquid Liquid General appearance: cooperative and no acute distress Head Head exam: Present normal inspection Eye Eye exam: Present normal appearance ENT ENT exam: Present mucous membranes moist Respiratory Respiratory exam: Absent respiratory distress Cardiovascular Cardiovascular exam: Present normal rate and rhythm GI/Abdominal GI/Abdominal exam: Present soft; Absent tenderness Extremities Exam Extremities exam: Absent joint swelling or pedal edema Neurological Exam Neurological exam: Present alert Psychiatric Psychiatric exam: Present normal affect and normal mood Skin Skin exam: Present warm; Absent rash Additional comments: bilateral periorbital eccymosis A/P Assessment and plan (1) Acute renal failure superimposed on stage 4 chronic kidney disease: Assessment and plan: Janelle Rene is an 87-year-old female, admitted on 08/31/22. She has dementia, s/p proctocolectomy with ileostomy, history of recurrent urinary tract infections, multiple bladder stones s/p removal by cystoscopy on 08/24/22, chronic kidney disease stage 4-5 (followed by Dr. Mejia). She presented to [facility] ED after a syncopal episode. Patient had a fall the previous night and was seen at [facility] ED. A left knee fracture was diagnosed. She was discharged home. In ED, she was found to be in acute kidney injury with hyperkalemia, metabolic acidosis and hyponatremia. She could not be transferred to a higher level of care. She had urine output after IV fluids. Her creat inine and electrolyte abnormalities improved. I saw her in ED with two daughters at the bedside. Nephrology consultation was requested for acute kidney injury. Acute kidney injury associated with acute cystitis intravascular volume depletion and on chronic kidney disease stage 4 with initial hyperkalemia, metabolic acidosis and hyponatremia, present on arrival, resolving. Acute cystitis with urine culture growing Klebsiella pneumoniae. She has been followed by Dr. Mejia for nephrology. Baseline creatinine 1.9 (eGFR 23) on 03/03/22, 2.7 (eGFR 15) on 04/18/22. Chronic kidney disease was a ttributed to NSAIDs, obstructive nephropathy and hypertension. Previous workup: Renal US on 11/04/19: Small bilateral kidneys with renal cortical atrophy showing no acute findings on ultrasound. Work up: Urinalysis on 08/30/22: Yellow, turbid, pH 6.0, SG 1.025, protein 100, blood large, leukocyte esterase large, urine culture pending. Progress: Serum creatinine decreased from 76.5 to 4.4 in the past 8 hours. Baseline creatinine 1.9 (eGFR 23) on 03/03/22, 2.7 (eGFR 15) on 04/18/22. Urine output: 3050 ml reported in the past 24 hours. Metabolic acidosis. Hyponatremia. Hypokalemia, being replaced. Recommendations/Plan: Anticipate no acute hemodialysis need. Outpatient nephrology follow up with Dr. Mejia. Status: Acute (2) Hyponatremia: Status: Acute Time Spent With Patient Time: Total time spent is greater than 50% in coordination of care (as documented) at patient's floor/unit and/or counseling patient:
--- NOTE | 2022-09-02 10:51 | Internal Med Progress Note ---
SUBJECTIVE Subjective Patient information: Note initiated : 09/02/22 at 10:45 am Patient: Janelle Rene 87 y/o F admitted on 08/31/22 for syncope. Interval history: Patient is feeling well. No reported nausea, vomiting, chest pain, shortness of breath, fever, chills. No dizziness. She is a still on dopamine drip at lower dose. Her renal function is improving. Potassium was 2.8 which will be replaced Constitutional Vitals: Vital Signs Temp Pulse Resp BP Pulse Ox O2 Del Method O2 Flow Rate 99.2 F H 74 12 105/51 94 2 09/02/22 08:01 09/02/22 10:00 09/02/22 10:00 09/02/22 10:00 09/02/22 10:00 09/02/22 08:01 09/02/22 08:01 Period Temp Pulse Resp BP Sys/Mistry Pulse Ox O2 Del Method O2 Flow Rate Last 24 Hr 97.1 F-99.2 F 64-94 8-32 81-128/39-107 82-100 Nasal Cannula- Room Air 0-2 Intake and Output 09/01/22 09/02/22 09/02/22 19:59 03:59 11:59 Intake Total 1624 1050 1852 Output Total 1285 1050 990 Balance 339 0 862 Weight 76.612 kg Intake & Output: Intake & Output 09/01/22 09/02/22 09/02/22 19:59 03:59 11:59 Intake Total 1624 1050 1852 Output Total 1285 1050 990 Balance 339 0 862 Weight 76.612 kg Intake: IV 1384 1050 1462 Sodium Chloride 0.9% 1,000 ml @ 979 1000 1000 125 mls/hr IV .Q8H [facility] Rx#: [id number] Sodium Chloride 0.9% 250 ml @ 250 248 20 mls/hr IV .[id number] [facility] Rx#: [id number] DOPamine 400 MG In Premix 1 Bag 155 214 @ 5 MCG/KG/MIN 14.373 mls/hr IV .[id number] [facility] Rx#:[id number] Rocephin 2 gm In Dextrose 5% in 50 Water 50 ml @ 100 mls/hr IV Q24H [facility] Rx#:[id number] Oral 240 390 Output: Urine Catheter Amount 1010 975 686 Stool 275 75 304 Other: Meal Dinner Breakfast Percent of Meal Consumed 50% 100% Feeding Ability Assist with Tray Set Up Independent Urine Appearance Clear Clear Clear Uretheral (Townsend) Clear Clear Clear Sediment Mucous Threads Urine Color Yellow Yellow Dark Yellow Uretheral (Townsend) Yellow Yellow Yellow Urine Odor Normal Normal Stool Size Moderate Stool Color Green Green Brown Yellow Green Stool Consistency Liquid Liquid Exam: General: Well-developed, well-nourished pleasant elderly female feet both black eyes due to recent fall in no distress. HEENT: Bilateral periorbital hematoma due to recent fall, normocephalic.PERRLA, moist mucous membrane. Anicteric sclera Chest: No point tenderness.No point tenderness. Lungs: Clear to auscultation bilaterally. No rhonchi rales or crackles. No wheezing. No use of accessory muscle respiration. Cardiovascular: Regular rate and rhythm. S1 + S2, no murmur gallop rub. No peripheral edema. No JVD Extremities: Left knee moderate effusion tender range of motion. No ulcer. There is bruises around the left knee. GI: Ileostomy in place with liquid content, abdomen soft, nontender, positive bowel sounds. No hepatosplenomegaly. No rebound tenderness. No CVA tenderness. Sue sign is negative : Townsend catheter in place with clear urine [employer]ATOR: Awake alert oriented x 2. Cranial nerves II through XII 12 grossly intact. Motor, sensory intact. Skin:Dry. Bruises in extremity due to recent fall Psychiatric: Normal mood and affect OBJ DATA Labs CBC & Chem 7: 09/01/22 08:33 09/02/22 05:20 Labs: Abnormal Lab Results 09/02/22 09/01/22 09/01/22 05:20 08:33 05:22 WBC Hgb Hct RDW 14.6 H Immature Gran % (Auto) 0.7 H Immature Gran # 0.07 H POC VBG pO2 POC VBG HCO3 POC VBG Total CO2 POC Venous O2 Sat POC VBG Base Excess Sodium 131 L 129 L Potassium 2.8 L* Chloride 93 L Carbon Dioxide 20 L 15 L Anion Gap 21.0 H BUN 73 H 98 H Creatinine 4.4 H 6.5 H* Glucose Calcium 8.1 L 8.4 L Phosphorus Magnesium Total Protein 5.7 L Albumin 2.7 L Albumin/Globulin Ratio 0.9 L Urine Appearance Urine Protein Urine Ketones Urine Occult Blood Ur Leukocyte Esterase Urine RBC Urine WBC Urine Bacteria Urine Opiates Screen 09/01/22 08/31/22 08/31/22 05:22 20:37 12:59 WBC Hgb Hct RDW Immature Gran % (Auto) Immature Gran # POC VBG pO2 POC VBG HCO3 POC VBG Total CO2 POC Venous O2 Sat POC VBG Base Excess Sodium 124 L 127 L Potassium Chloride 89 L 89 L Carbon Dioxide 21 L Anion Gap BUN 105 H* 120 H* Creatinine 7.2 H* 7.5 H* Glucose 124 H 107 H Calcium 8.2 L 8.4 L Phosphorus 6.7 H* Magnesium 3.0 H Total Protein Albumin Albumin/Globulin Ratio Urine Appearance Urine Protein Urine Ketones Urine Occult Blood Ur Leukocyte Esterase Urine RBC Urine WBC Urine Bacteria Urine Opiates Screen 08/31/22 08/31/22 08/30/22 05:55 05:55 19:00 WBC Hgb 10.9 L Hct 33.6 L RDW 14.8 H Immature Gran % (Auto) Immature Gran # POC VBG pO2 POC VBG HCO3 POC VBG Total CO2 POC Venous O2 Sat POC VBG Base Excess Sodium 127 L Potassium Chloride 89 L Carbon Dioxide 21 L Anion Gap 17.0 H BUN 123 H* Creatinine 8.9 H* Glucose Calcium 8.3 L Phosphorus Magnesium Total Protein 5.5 L Albumin 2.6 L Albumin/Globulin Ratio 0.9 L Urine Appearance Turbid A Urine Protein 100 A Urine Ketones Trace A Urine Occult Blood Large A Ur Leukocyte Esterase Large A Urine RBC > 182 H Urine WBC > 182 H Urine Bacteria Many A Urine Opiates Screen 08/30/22 08/30/22 08/30/22 19:00 17:43 16:55 WBC Hgb Hct RDW Immature Gran % (Auto) Immature Gran # POC VBG pO2 41 H POC VBG HCO3 28.9 H POC VBG Total CO2 30.0 H POC Venous O2 Sat 76.0 H POC VBG Base Excess 4.0 H* Sodium 126 L Potassium 5.6 H Chloride 77 L Carbon Dioxide Anion Gap 21.0 H BUN 148 H* Creatinine 10.7 H* Glucose 118 H Calcium Phosphorus Magnesium Total Protein Albumin Albumin/Globulin Ratio Urine Appearance Urine Protein Urine Ketones Urine Occult Blood Ur Leukocyte Esterase Urine RBC Urine WBC Urine Bacteria Urine Opiates Screen Suspect positive A 08/30/22 16:55 WBC 11.2 H Hgb Hct RDW 14.7 H Immature Gran % (Auto) Immature Gran # POC VBG pO2 POC VBG HCO3 POC VBG Total CO2 POC Venous O2 Sat POC VBG Base Excess Sodium Potassium Chloride Carbon Dioxide Anion Gap BUN Creatinine Glucose Calcium Phosphorus Magnesium Total Protein Albumin Albumin/Globulin Ratio Urine Appearance Urine Protein Urine Ketones Urine Occult Blood Ur Leukocyte Esterase Urine RBC Urine WBC Urine Bacteria Urine Opiates Screen Meds: Medications Acetaminophen (Acetaminophen 325 Mg Tablet) 650 mg PO Q4-6HP PRN; Protocol PRN Reason: Per Pain Protocol/Fever > 101 Last Admin: 09/02/22 05:36 Dose: 650 mg Donepezil HCl (Donepezil 10 Mg Tablet) 10 mg PO QDAY [facility] Last Admin: 09/02/22 08:29 Dose: 10 mg Folic Acid (Folic Acid 1 Mg Tablet) 1 mg PO DAILY [facility] Last Admin: 09/02/22 08:29 Dose: 1 mg Gabapentin (Gabapentin 100 Mg Capsule) 100 mg PO QDAY [facility] Last Admin: 09/02/22 08:29 Dose: 100 mg Heparin Sodium (Porcine) (Heparin 5,000 Unit/Ml Vial) 5,000 unit SQ Q12 [facility] Last Admin: 09/02/22 08:29 Dose: 5,000 unit Ceftriaxone Sodium 2 gm/ (Dextrose) 50 mls @ 100 mls/hr IV Q24H [facility]; Protocol Last Infusion: 09/01/22 20:30 Dose: Infused Norepinephrine Bitartrate 16 (mg/ Sodium Chloride) 250 mls @ 9.375 mls/hr IV Q24H [facility]; Protocol Last Admin: 09/02/22 02:51 Dose: Not Given Sodium Chloride (Sodium Chloride 0.9%) 250 mls @ 20 mls/hr IV .[id number] [facility] Last Admin: 09/02/22 04:29 Dose: 20 mls/hr Dopamine HCl/Dextrose 400 mg/ (Premix) 250 mls @ 14.373 mls/hr IV .[id number] [facility]; Protocol Last Admin: 09/02/22 06:45 Dose: 5 mcg/kg/min, 14.373 mls/hr Sodium Chloride (Sodium Chloride 0.9%) 250 mls @ 20 mls/hr IV .[id number] [facility] Last Admin: 09/02/22 02:53 Dose: Not Given Sodium Chloride (Sodium Chloride 0.9%) 1,000 mls @ 125 mls/hr IV .Q8H [facility] Last Admin: 09/02/22 08:22 Dose: 125 mls/hr Potassium Chloride 20 meq/ (Dextrose) 260 mls @ 130 mls/hr IV ONCE ONE Stop: 09/02/22 12:42 Levothyroxine Sodium (Levothyroxine 150 Mcg Tablet) [facility] Last Admin: 09/02/22 08:29 Dose: 150 mcg Levothyroxine Sodium (Levothyroxine 25 Mcg Tablet) 25 mcg PO QAMAC [facility] Last Admin: 09/02/22 08:29 Dose: 25 mcg Memantine (Memantine 10 Mg Tablet) 10 mg PO BID [facility] Last Admin: 09/02/22 08:29 Dose: 10 mg Mirtazapine (Mirtazapine 15 Mg Tablet) 7.5 mg PO QHS [facility] Last Admin: 09/01/22 20:45 Dose: 7.5 mg Ondansetron HCl (Ondansetron 4 Mg/2 Ml Vial) 4 mg IV Q4-6HP PRN; Protocol PRN Reason: Nausea And Vomiting Last Admin: 08/31/22 23:07 Dose: 4 mg Quetiapine Fumarate (Quetiapine 25 Mg Tablet) 25 mg PO HSP PRN PRN Reason: Agitation Last Admin: 09/01/22 22:22 Dose: 25 mg Senna (Sennosides 1 Tablet) 1 tab PO HSP PRN PRN Reason: Constipation Sodium Bicarbonate (Sodium Bicarbonate 650 Mg Tablet) 650 mg PO BID [facility] Last Admin: 09/02/22 08:29 Dose: 650 mg Sodium Chloride (0.9 % Sodium Chloride 10 Ml Syringe) 10 ml IV Q8 [facility] Last Admin: 09/02/22 08:35 Dose: 10 ml A/P Narrative A/P Narrative: Pleasant 87 years old female with past medical history significant for chronic kidney disease stage IV, history of ulcerative colitis status post total colectomy and ileostomy brought to emergency room with following problem list: #Acute on chronic Stage IV kidney injury. Nonoliguric -Most likely ATN due to poor p.o. intake/hypotension. No rhabdomyolysis CPK 158 - Renal US on 11/04/19: Small bilateral kidneys with renal cortical atrophy showing no acute findings on ultrasound. - UA SG 1.025, protein 100, blood large, leukocyte esterase large, urine culture pending. -Baseline BUN/creatinine 67/2.7. On admit 148/10.7, potassium 5.6, no acidemia. -No indication for dialysis. Patient received 2 L IV fluid and her renal function trending down -Cont ICU monitoring. -Continue IV fluid and Dopamine gtt and try to titrate and DC -Keep systolic blood pressure more than 130. Strict I's and O's. Avoid nephrotoxic agent. -Nephrology following. -Creatinine 4.4 today, good urine output. #Hypovolemic shock. -Due to poor p.o. intake and high output ileostomy. No signs of bleeding. Hemoglobin is stable. -Continue Dopamine drip, IV fluid at 125/h. Patient tolerating it well so far -Keep systolic blood pressure over 130 and continue IV fluid #Hypokalemia. Potassium 2.8 -Replace and follow BMP #Hyperkalemia due to SHIVA. Resolved a #Hyponatremia. Most likely due to hypovolemia. Currently 129 from 126 -Continue NS at 125/h and BMP every 6 hours #Bacteriuria. Patient has Townsend catheter. She is unaware of dysuria -Treat empirically with Rocephin 1 g daily and follow urine culture. Treat 3-5 days total # Gap Metabolic Acidosis. - Due to SHIVA. Resolved. Cont home Bicarb PO #Recent fall with left knee fracture. #Acute traumatic L.knee Fracture. Will D/w Ortho -Patient was seen by orthopedic surgery at [facility]. Recommend partial weightbearing and immobilizer -Get records from [facility] #History of ulcerative colitis, status post total colectomy and ileostomy -High output ileostomy. Continue IV fluid to match I/os #Dementia. Baseline alert oriented X3 -Continue Donepezil and memantine CODE STATUS: Full code DVT prophylaxis: Heparin 5000 twice daily Alternative decision maker: Patient's daughter. Time Spent With Patient Time: Total time spent is greater than 50% in coordination of care (as documented) at patient's floor/unit and/or counseling patient: Total time spent with greater than 50% in coordination of care (as documented) at patient's floor/unit and/or counseling patient:: 35 - 50 minutes Critical Care Time: Yes Total Critical Care Time: 40 QUALITY VTE Deep Vein Thrombosis/Pulmonary Embolism Present on Admission: No
[2022-09-02] MEDS ORDERED: POTASSIUM CHLORIDE 20 MEQ in DEXTROSE 5% IN WATER 250 ML IV SCH ×2 (12:00→14:00)
--- NOTE | 2022-09-02 12:08 | EKG ---
[facility] Test Date: 2022-08-30 Pat Name: Janelle Rene Department: ED Room: Gender: Female Gore Seamer: [place] : 1935 Requested By: Bryon Garrido Order Number: [id number] Reading MD: Alvaro aLm M.D. Measurements Intervals [place] Rate: 57 P: 35 UT: 181 QRS: -18 QRSD: 93 T: 58 QT: 450 QTc: 439 Interpretive Statements Sinus rhythm Electronically Signed On 09-02-2022 12:07:29 PST by Alvaro Lam M.D. /store/[email or web address]/[id number]
[2022-09-02] MEDS: cefTRIAXone 2 GM in DEXTROSE 5% IN WATER 50 ML IV SCH (20:24)
[2022-09-02] MEDS: QUEtiapine 25 MG TABLET PO PRN (22:17)
[2022-09-02] MEDS: MIRTAZAPINE 15 MG TABLET PO SCH (22:17)
[2022-09-03] MEDS: 0.9 % SODIUM CHLORIDE 250 ML IV SCH ×4 (02:55→16:57)
[2022-09-03] MEDS: NOREPINEPHRINE BITARTRATE 16 MG in 0.9 % SODIUM CHLORIDE 234 ML IV SCH (02:55)
[2022-09-03] MEDS: DOPamine 400 MG in PREMIX 1 BAG IV SCH ×2 (03:11→16:55)
[2022-09-03] MEDS: 0.9 % SODIUM CHLORIDE 1,000 ML IV SCH (04:35)
[2022-09-03] MEDS: 0.9 % SODIUM CHLORIDE 10 ML SYRINGE IV SCH ×3 (05:57→21:24)
[2022-09-03 06:50] LABS: Basophils # (Auto) 0.07 K/mcL (0.00-0.30); Eosinophils # (Auto) 0.37 K/mcL (0.00-0.70); Eosinophils % (Auto) 5.3 % (0.0-7.0); Hematocrit 32.1 % (34.1-44.9); Hemoglobin 10.3 g/dL (11.2-15.7); Lymphocytes # (Auto) 1.88 K/mcL (1.50-4.80); Lymphocytes % (Auto) 26.9 % (15.5-49.0); Mean Cell Volume 91.5 fL (80.0-100.0); Mean Corpuscular HGB Conc 32.1 g/dL (31.0-36.0); Mean Platelet Volume 9.8 fL (8.8-12.5); Monocytes # (Auto) 0.46 K/mcL (0.10-0.90); Monocytes % (Auto) 6.6 % (1.0-12.0); Neutrophils % (Auto) 59.5 % (38.0-78.0); Platelet Count 245 K/mcL (140-440); RBC 3.51 M/mcL (3.59-5.38); Red Cell Distribution Width 15.7 % (11.5-14.5)
[2022-09-03] MEDS ORDERED: NOREPINEPHRINE BITARTRATE 16 MG in 0.9 % SODIUM CHLORIDE 234 ML IV PRN (07:00)
[2022-09-03 07:02] LABS: Phosphorous 3.9 mg/dL (2.5-4.5)
[2022-09-03 07:03] LABS: Blood Urea Nitrogen 60 mg/dL (8-23); Carbon Dioxide 18 mmol/L (22-30); Chloride 104 mmol/L (96-108); Glomerular Filtration Rate 12; Glucose 80 mg/dL (70-105)
--- NOTE | 2022-09-03 07:24 | Nephrology Progress Note ---
SUBJECTIVE Subjective Patient information: Note initiated : 09/03/22 at 7:21 am Patient: Janelle Rene 87 y/o F admitted on 08/31/22 for syncope. Chief Complaint: Altered mental status Pertinent ROS: Weakness Townsend catheter Ileostomy Left knee pain Constitutional Vitals: Vital Signs Temp Pulse Resp BP Pulse Ox O2 Del Method O2 Flow Rate 98.2 F 83 22 110/64 97 0 09/03/22 04:00 09/03/22 06:41 09/03/22 06:41 09/03/22 06:00 09/03/22 06:41 09/03/22 04:00 09/03/22 04:00 Period Temp Pulse Resp BP Sys/Mistry Pulse Ox O2 Del Method O2 Flow Rate Last 24 Hr 97.7 F-99.2 F 61-94 8-31 60-127/42-99 65-100 Nasal Cannula- Room Air 0-2 Intake and Output 09/02/22 09/03/22 09/03/22 19:59 03:59 11:59 Intake Total 1421 1118 1250 Output Total 1024 785 270 Balance 397 333 980 Weight 168 lb 14.4 oz 173 lb 12.8 oz Intake & Output: Intake & Output 09/02/22 09/03/22 09/03/22 19:59 03:59 11:59 Intake Total 1421 1118 1250 Output Total 1024 785 270 Balance 397 333 980 Weight 168 lb 14.4 oz 173 lb 12.8 oz Intake: IV 841 1118 1250 Sodium Chloride 0.9% 1,000 ml @ 1000 1000 125 mls/hr IV .Q8H [facility] Rx#: [id number] Sodium Chloride 0.9% 250 ml @ 250 250 20 mls/hr IV .[id number] [facility] Rx#: [id number] DOPamine 400 MG In Premix 1 Bag 71 118 @ 5 MCG/KG/MIN 14.373 mls/hr IV .[id number] [facility] Rx#:[id number] Levophed 16 mg In Sodium 0 Chloride 0.9% 234 ml @ 10 MCG/ MIN 9.375 mls/hr IV Q24H [facility] Rx #:[id number] Potassium Chloride 20 Meq In 520 Dextrose 5% in Water 250 ml @ 130 mls/hr IV 1400 [facility] Rx#: [id number] Oral 580 Output: Urine Catheter Amount 549 685 270 Stool 475 100 Other: Meal Dinner Percent of Meal Consumed 25% Feeding Ability Assist with Tray Set Up Urine Appearance Clear Clear Clear Uretheral (Townsend) Clear Urine Color Yellow Yellow Yellow Urine Odor Normal Stool Color Brown Stool Consistency Liquid Loose General appearance: cooperative and no acute distress Head Head exam: Present normal inspection Eye Eye exam: Present normal appearance ENT ENT exam: Present mucous membranes moist Respiratory Respiratory exam: Absent respiratory distress Cardiovascular Cardiovascular exam: Present normal rate and rhythm GI/Abdominal GI/Abdominal exam: Present soft; Absent tenderness Extremities Exam Extremities exam: Absent joint swelling or pedal edema Neurological Exam Neurological exam: Present alert and oriented X3 Psychiatric Psychiatric exam: Present normal affect and normal mood Skin Skin exam: Present warm; Absent rash Additional comments: bilateral periorbital ecchymosis A/P Assessment and plan (1) Acute renal failure superimposed on stage 4 chronic kidney disease: Assessment and plan: Janelle Rene is an 87-year-old female, admitted on 08/31/22. She has dementia, s/p proctocolectomy with ileostomy, history of recurrent urinary tract infections, multiple bladder stones s/p removal by cystoscopy on 08/24/22, chronic kidney disease stage 4-5 (followed by Dr. Mejia). She presented to [facility] ED after a syncopal episode. Patient had a fall the previous night and was seen at [facility] ED. A left knee fracture was diagnosed. She was discharged home. In ED, she was found to be in acute kidney injury with hyperkalemia, metabolic acidosis and hyponatremia. She could not be transferred to a higher level of care. She had urine output after IV fluids. Her creatinine and electrolyte abnormalities improved. I saw her in ED with two daughters at the bedside. Nephrology consultation was requested for acute kidney injury. Acute kidney injury associated with acute cystitis intravascular volume depletion and on chronic kidney disease stage 4 with initial hyperkalemia, metabolic acidosis and hyponatremia, present on arrival, resolving. Acute cystitis with urine culture growing Klebsiella pneumoniae. She has been followed by Dr. Mejia for nephrology. Baseline creatinine 1.9 (eGFR 23) on 03/03/22, 2.7 (eGFR 15) on 04/18/22. Chronic kidney disease was attributed to NSAIDs, obstructive nephropathy and hypertension. Previous workup: Renal US on 11/04/19: Small bilateral kidneys with renal cortical atrophy showing no acute findings on ultrasound. Work up: Urinalysis on 08/30/22: Yellow, turbid, pH 6.0, SG 1.025, protein 100, blood large, leukocyte esterase large, urine culture pending. Progress: Serum creatinine decreased from 4.4 to 3.3 in the past 24 hours. Baseline creatinine 1.9 (eGFR 23) on 03/03/22, 2.7 (eGFR 15) on 04/18/22. Urine output: 1952 ml reported in the past 24 hours. Metabolic acidosis. Hyponatremia, resolved. Hypokalemia, being replaced. Recommendations/Plan: Anticipate no acute hemodialysis need. Outpatient nephrology follow up with Dr. Mejia. Status: Acute (2) Hyponatremia: Status: Acute Time Spent With Patient Time: Total time spent is greater than 50% in coordination of care (as documented) at patient's floor/unit and/or counseling patient:
[2022-09-03] MEDS: LEVOTHYROXINE 25 MCG TABLET PO SCH (08:21)
[2022-09-03] MEDS: FOLIC ACID 1 MG TABLET PO SCH (08:21)
[2022-09-03] MEDS: SODIUM BICARBONATE 650 MG TABLET PO SCH ×2 (08:21→21:23)
[2022-09-03] MEDS: LEVOTHYROXINE 150 MCG TABLET PO SCH (08:21)
[2022-09-03] MEDS: DONEPEZIL 10 MG TABLET PO SCH (08:21)
[2022-09-03] MEDS: GABAPENTIN 100 MG CAPSULE PO SCH (08:21)
[2022-09-03] MEDS: HEPARIN 5,000 UNIT/ML VIAL SQ SCH ×2 (08:22→21:23)
[2022-09-03] MEDS: MEMANTINE 10 MG TABLET PO SCH ×2 (08:25→21:23)
[2022-09-03] MEDS ORDERED: POTASSIUM CHLORIDE 40 MEQ in DEXTROSE 5% IN WATER 500 ML IV ONE (08:33)
--- NOTE | 2022-09-03 08:49 | Internal Med Progress Note ---
SUBJECTIVE Subjective Patient information: Note initiated : 09/03/22 at 8:48 am Service Date, if different from initiated Date: [] Patient: Janelle Rene 87 y/o F admitted on 08/31/22 for syncope. Chief Complaint: [] Principal diagnosis: UTI, septic shock, SHIVA on ckd Interval history: Patient seen examined, doing well, pleasantly confused No acute complaints or conerns. Labs shwo improving renal function, Chart reviewed, ortho eval recently at [facility] after fall, advised partial weight bearing , pain control and knee immbolizer, outpatient follow up Pertinent ROS: Denies headache, dizziness Denies chest pain, palpitations Denies cough or shortness of breath Denies abdominal pain, nausea or vomiting. Constitutional Vitals: Vital Signs Temp Pulse Resp BP Pulse Ox O2 Del Method O2 Flow Rate 98.3 F 76 12 113/56 95 0 09/03/22 08:00 09/03/22 08:00 09/03/22 08:00 09/03/22 08:00 09/03/22 08:00 09/03/22 08:00 09/03/22 04:00 Period Temp Pulse Resp BP Sys/Mistry Pulse Ox O2 Del Method O2 Flow Rate Last 24 Hr 97.7 F-98.8 F 61-94 8-28 60-127/42-99 65-100 Oxymask-Room Air 0-2 Intake and Output 09/02/22 09/03/22 09/03/22 19:59 03:59 11:59 Intake Total 1421 1118 1374 Output Total 1024 785 400 Balance 397 333 974 Weight 76.612 kg 78.834 kg Intake & Output: Intake & Output 09/02/22 09/03/22 09/03/22 19:59 03:59 11:59 Intake Total 1421 1118 1374 Output Total 1024 785 400 Balance 397 333 974 Weight 76.612 kg 78.834 kg Intake: IV 841 1118 1374 Sodium Chloride 0.9% 1,000 ml @ 1000 1000 125 mls/hr IV .Q8H [facility] Rx#: [id number] Sodium Chloride 0.9% 250 ml @ 250 250 20 mls/hr IV .[id number] [facility] Rx#: [id number] DOPamine 400 MG In Premix 1 Bag 71 118 74 @ 5 MCG/KG/MIN 14.373 mls/hr IV .[id number] [facility] Rx#:[id number] Levophed 16 mg In Sodium 0 Chloride 0.9% 234 ml @ 10 MCG/ MIN 9.375 mls/hr IV Q24H [facility] Rx #:[id number] Potassium Chloride 20 Meq In 520 Dextrose 5% in Water 250 ml @ 130 mls/hr IV 1400 [facility] Rx#: [id number] Rocephin 2 gm In Dextrose 5% in 50 Water 50 ml @ 100 mls/hr IV Q24H [facility] Rx#:[id number] Oral 580 Output: Urine Catheter Amount 549 685 400 Stool 475 100 Other: Meal Dinner Percent of Meal Consumed 25% Feeding Ability Assist with Tray Set Up Urine Appearance Clear Clear Clear Uretheral (Townsend) Clear Clear Urine Color Yellow Yellow Yellow Uretheral (Townsend) Yellow Yellow Urine Odor Normal Stool Color Brown Stool Consistency Liquid Loose Exam: Constitutional; Afebrile, cooperative, alert, not in distress. Ears- Ext ear normal, hearing normal to conversation. Neck- Midline trachea, supple Respiratory system: Air Entry equal on both sides, No crackles or wheezing, no r honchi. CVS- Rate rhythm regular, S1,S2 heard, no gallop, no rub. Abdomen- Soft nontender abdomen, no organomegaly, no tenderness, no guarding or rigidity, OXYGEN SYSTEM TESTER- AOOx2, moving all extremities, no gross focal deficit noted. OBJ DATA Labs CBC & Chem 7: 09/03/22 05:10 09/03/22 05:09 Labs: Abnormal Lab Results 09/03/22 09/03/22 09/02/22 05:10 05:09 05:20 RBC 3.51 L Hgb 10.3 L Hct 32.1 L RDW 15.7 H Immature Gran % (Auto) 0.7 H Immature Gran # Sodium 131 L Potassium 3.1 L 2.8 L* Chloride Carbon Dioxide 18 L 20 L Anion Gap BUN 60 H 73 H Creatinine 3.3 H 4.4 H Glucose Calcium 8.0 L 8.1 L Phosphorus Magnesium Total Protein Albumin Albumin/Globulin Ratio 09/01/22 09/01/22 09/01/22 08:33 05:22 05:22 RBC Hgb Hct RDW 14.6 H Immature Gran % (Auto) 0.7 H Immature Gran # 0.07 H Sodium 129 L Potassium Chloride 93 L Carbon Dioxide 15 L Anion Gap 21.0 H BUN 98 H Creatinine 6.5 H* Glucose Calcium 8.4 L Phosphorus 6.7 H* Magnesium 3.0 H Total Protein 5.7 L Albumin 2.7 L Albumin/Globulin Ratio 0.9 L 08/31/22 08/31/22 20:37 12:59 RBC Hgb Hct RDW Immature Gran % (Auto) Immature Gran # Sodium 124 L 127 L Potassium Chloride 89 L 89 L Carbon Dioxide 21 L Anion Gap BUN 105 H* 120 H* Creatinine 7.2 H* 7.5 H* Glucose 124 H 107 H Calcium 8.2 L 8.4 L Phosphorus Magnesium Total Protein Albumin Albumin/Globulin Ratio Meds: Medications Acetaminophen (Acetaminophen 325 Mg Tablet) 650 mg PO Q4-6HP PRN; Protocol PRN Reason: Per Pain Protocol/Fever > 101 Last Admin: 09/02/22 15:00 Dose: 650 mg Donepezil HCl (Donepezil 10 Mg Tablet) 10 mg PO QDAY [facility] Last Admin: 09/03/22 08:21 Dose: 10 mg Folic Acid (Folic Acid 1 Mg Tablet) 1 mg PO DAILY [facility] Last Admin: 09/03/22 08:21 Dose: 1 mg Gabapentin (Gabapentin 100 Mg Capsule) 100 mg PO QDAY [facility] Last Admin: 09/03/22 08:21 Dose: 100 mg Heparin Sodium (Porcine) (Heparin 5,000 Unit/Ml Vial) 5,000 unit SQ Q12 [facility] Last Admin: 09/03/22 08:22 Dose: 5,000 unit Ceftriaxone Sodium 2 gm/ (Dextrose) 50 mls @ 100 mls/hr IV Q24H [facility]; Protocol Last Infusion: 09/03/22 08:25 Dose: Infused Sodium Chloride (Sodium Chloride 0.9%) 250 mls @ 20 mls/hr IV .[id number] [facility] Last Admin: 09/03/22 05:36 Dose: 20 mls/hr Sodium Chloride (Sodium Chloride 0.9%) 250 mls @ 20 mls/hr IV .[id number] [facility] Last Admin: 09/03/22 02:55 Dose: Not Given Potassium Chloride 40 meq/ (Dextrose) 520 mls @ 130 mls/hr IV ONCE ONE Stop: 09/03/22 12:32 Levothyroxine Sodium (Levothyroxine 150 Mcg Tablet) 150 mcg PO QAMAC [facility] Last Admin: 09/03/22 08:21 Dose: 150 mcg Levothyroxine Sodium ([facility]othyroxine 25 Mcg Tablet) [facility] Last Admin: 09/03/22 08:21 Dose: 25 mcg Memantine (Memantine 10 Mg Tablet) 10 mg PO BID [facility] Last Admin: 09/03/22 08:25 Dose: 10 mg Mirtazapine (Mirtazapine 15 Mg Tablet) 7.5 mg PO QHS [facility] Last Admin: 09/02/22 22:17 Dose: 7.5 mg Ondansetron HCl (Ondansetron 4 Mg/2 Ml Vial) 4 mg IV Q4-6HP PRN; Protocol PRN Reason: Nausea And Vomiting Last Admin: 08/31/22 23:07 Dose: 4 mg Quetiapine Fumarate (Quetiapine 25 Mg Tablet) 25 mg PO HSP PRN PRN Reason: Agitation Last Admin: 09/02/22 22:17 Dose: 25 mg Senna (Sennosides 1 Tablet) 1 tab PO [facility] PRN PRN Reason: Constipation Sodium Bicarbonate (Sodium Bicarbonate 650 Mg Tablet) 650 mg PO BID [facility] Last Admin: 09/03/22 08:21 Dose: 650 mg Sodium Chloride (0.9 % Sodium Chloride 10 Ml Syringe) 10 ml IV Q8 [facility] Last Admin: 09/03/22 05:57 Dose: Not Given A/P Narrative A/P Narrative: Pleasant 87 years old female with past medical history significant for chronic kidney disease stage IV, history of ulcerative colitis status post total colectomy and ileostomy brought to emergency room with following problem list: #Acute on chronic Stage IV kidney injury. Nonoliguric -Most likely ATN due to poor p.o. intake/hypotension. No rhabdomyolysis CPK 158 - Renal US on 11/04/19: Small bilateral kidneys with renal cortical atrophy showing no acute findings on ultrasound. - UA SG 1.025, protein 100, blood large, leukocyte esterase large, urine culture pending. -Baseline BUN/creatinine 67/2.7. On admit 148/10.7, potassium 5.6, no acidemia. -No indication for dialysis. Patient received 2 L IV fluid and her renal function trending down -Cont ICU monitoring. - Dopamine gtt , plan to initiate weaning from today, d/c IVF -Avoid hypotension. Strict I's and O's. Avoid nephrotoxic agent. -Nephrology following. -Creatinine 3.3 today, good urine output. #Hypovolemic shock. -Due to poor p.o. intake and high output ileostomy. No signs of bleeding. Hemoglobin is stable. -tolerating po well, d/c iv fluids and IV dopamine, monitor renal function and hemodynanmics off them to see if pt can be weaned off -if pt remains hypotensive, will need to check cortisol leve, tsh, and an echo #Hypokalemia. Potassium 3.1 -Replace and follow BMP #Hyperkalemia due to SHIVA. Resolved a #Hyponatremia. Most likely due to hypovolemia. -resolved #Bacteriuria. Patient has Townsend catheter. She is unaware of dysuria -Treat empirically with Rocephin 1 g daily and follow urine culture. Treat 3-5 days total -urine culture reviewed, await sensitivity # Gap Metabolic Acidosis. - Due to SHIVA. Resolved. Cont home Bicarb PO #Recent fall with left knee fracture. #Acute traumatic L.knee Fracture. Will D/w Ortho -Patient was seen by orthopedic surgery at [facility]. Recommend partial weightbearing and immobilizer -OT/PT #History of ulcerative colitis, status post total colectomy and ileostomy -High output ileostomy. encourage oral fluid intake #Dementia. Baseline alert oriented X3 -Continue Donepezil and memantine CODE STATUS: Full code DVT prophylaxis: Heparin 5000 twice daily Alternative decision maker: Patient's daughter. Time Spent With Patient Time: Total time spent is greater than 50% in coordination of care (as documented) at patient's floor/unit and/or counseling patient: QUALITY VTE Deep Vein Thrombosis/Pulmonary Embolism Present on Admission: No
[2022-09-03] MEDS: ACETAMINOPHEN 325 MG TABLET PO PRN ×2 (09:55→21:24)
[2022-09-03] MEDS ORDERED: ALBUMIN HUMAN 25 GM/100 ML BAG IV ONE (10:00)
[2022-09-03] MEDS ORDERED: CHOLESTYRAMINE/ASPARTAME 4 GM POWD.PACK PO SCH (10:05)
[2022-09-03] MEDS ORDERED: [UNRECOGNIZED DRUG - OTHER] PO SCH (15:00)
[2022-09-03] MEDS ORDERED: LACTATED RINGERS 1,000 ML IV ONE (15:58)
[2022-09-03] MEDS: MIDODRINE 5 MG TABLET PO SCH (16:07)
[2022-09-03] MEDS: CHOLESTYRAMINE/ASPARTAME 4 GM POWD.PACK PO SCH ×2 (17:53→22:51)
[2022-09-03] MEDS: cefTRIAXone 2 GM in DEXTROSE 5% IN WATER 50 ML IV SCH (20:12)
[2022-09-03] MEDS: MIRTAZAPINE 15 MG TABLET PO SCH (21:23)
[2022-09-04] MEDS: QUEtiapine 25 MG TABLET PO PRN (01:44)
[2022-09-04] MEDS: 0.9 % SODIUM CHLORIDE 250 ML IV SCH ×2 (05:03→05:34)
[2022-09-04] MEDS: 0.9 % SODIUM CHLORIDE 10 ML SYRINGE IV SCH ×3 (06:16→21:39)
[2022-09-04] MEDS: LEVOTHYROXINE 150 MCG TABLET PO SCH (06:59)
[2022-09-04] MEDS: ACETAMINOPHEN 325 MG TABLET PO PRN ×4 (06:59→21:39)
[2022-09-04] MEDS: LEVOTHYROXINE 25 MCG TABLET PO SCH (06:59)
[2022-09-04 07:16] LABS: ALT/SGPT 6 U/L (<40); AST/SGOT 16 U/L (<32); Albumin 2.2 gm/dL (3.2-5.2); Albumin/Globulin Ratio 0.8 (1.0-2.3); Alkaline Phosphatase 94 U/L (39-117); Bilirubin,Direct < 0.2 mg/dL (0-0.3); Bilirubin,Total 0.2 mg/dL (0.1-1.0); Blood Urea Nitrogen 43 mg/dL (8-23); Calcium 8.6 mg/dL (8.6-10.4); Carbon Dioxide 20 mmol/L (22-30); Chloride 105 mmol/L (96-108); Globulin 2.8 gm/dL (2.2-3.7); Glomerular Filtration Rate 16; Glucose 82 mg/dL (70-105); Lactate Dehydrogenase 250 U/L (135-225); Triglycerides 139 mg/dL (<150); Uric Acid 8.3 mg/dL (2.5-8.0)
--- NOTE | 2022-09-04 07:22 | Nephrology Progress Note ---
SUBJECTIVE Subjective Patient information: Note initiated : 09/04/22 at 7:18 am Patient: Janelle Rene 87 y/o F admitted on 08/31/22 for syncope. Chief Complaint: Weakness Principal diagnosis: UTI, septic shock, SHIVA on ckd Pertinent ROS: Weakness Townsend catheter with clear urine Constitutional Vitals: Vital Signs Temp Pulse Resp BP Pulse Ox O2 Del Method O2 Flow Rate 97.9 F 73 11 L 109/49 97 0 09/04/22 00:00 09/04/22 03:11 09/04/22 03:11 09/04/22 03:00 09/04/22 03:11 09/04/22 03:11 09/04/22 03:11 Period Temp Pulse Resp BP Sys/Mistry Pulse Ox O2 Del Method O2 Flow Rate Last 24 Hr 97.5 F-98.3 F 51-86 9-26 65-120/39-97 93-99 Room Air-Room Air 0-0 Intake and Output 09/03/22 09/04/22 09/04/22 19:59 03:59 11:59 Intake Total 1035 50 100 Output Total 1025 425 685 Balance 10 375 -585 Weight 174 lb 12.8 oz Intake & Output: Intake & Output 09/03/22 09/04/22 09/04/22 19:59 03:59 11:59 Intake Total 1035 50 100 Output Total 1025 425 685 Balance 10 -375 -585 Weight 174 lb 12.8 oz Intake: IV 785 50 Sodium Chloride 0.9% 250 ml @ 150 20 mls/hr IV .[id number] [facility] Rx#: [id number] DOPamine 400 MG In Premix 1 Bag 15 @ 5 MCG/KG/MIN 14.373 mls/hr IV .[id number] [facility] Rx#:[id number] Potassium Chloride 40 Meq In 520 Dextrose 5% in Water 500 ml @ 130 mls/hr IV ONCE ONE Rx#: [id number] Rocephin 2 gm In Dextrose 5% in 50 Water 50 ml @ 100 mls/hr IV Q24H [facility] Rx#:[id number] Oral 250 100 Output: Urine Catheter Amount 275 275 210 Void Amount 75 Stool 750 150 400 Other: Urine Appearance Clear Clear Clear Sediment Uretheral (Townsend) Clear Clear Urine Color Yellow Yellow Pale Uretheral (Townsend) Yellow Yellow Stool Size Large Stool Color Brown Brown Yellow Green Stool Consistency Liquid Liquid Watery # of times incontinent of 1 Bowels General appearance: cooperative and no acute distress Head Head exam: Present normal inspection Eye Eye exam: Present normal appearance ENT ENT exam: Present mucous membranes moist Respiratory Respiratory exam: Absent respiratory distress Cardiovascular Cardiovascular exam: Present normal rate and rhythm GI/Abdominal GI/Abdominal exam: Present soft; Absent tenderness Extremities Exam Extremities exam: Absent joint swelling or pedal edema Neurological Exam Neurological exam: Present alert and oriented X3 Psychiatric Psychiatric exam: Present normal affect and normal mood Skin Skin exam: Present warm; Absent rash Additional comments: bilateral resolving periorbital ecchymosis A/P Assessment and plan (1) Acute renal failure superimposed on stage 4 chronic kidney disease: Assessment and plan: Janelle Rene is an 87-year-old female, admitted on 08/31/22. She has dementia, s/p proctocolectomy with ileostomy, history of recurrent urinary tract infections, multiple bladder stones s/p removal by cystoscopy on 08/24/22, chronic kidney disease stage 4-5 (followed by Dr. Mejia). [facility] after a syncopal episode. Patient had a fall the previous night and was seen at [facility] ED. A left knee fracture was diagnosed. She was discharged home. In ED, she was found to be in acute kidney injury with hyperkalemia, metabolic acidosis and hyponatremia. She could not be transferred to a higher level of care. She had urine output after IV fluids. Her creatinine and electrolyte abnormalities improved. I saw her in ED with two daughters at the bedside. Nephrology consultation was requested for acute kidney injury. Acute kidney injury associated with acute cystitis intravascular volume depleti on and on chronic kidney disease stage 4 with initial hyperkalemia, metabolic acidosis and hyponatremia, present on arrival, resolving. Acute cystitis with urine culture positive for Klebsiella pneumoniae. She has been followed by Dr. Mejia for nephrology. Baseline creatinine 1.9 (eGFR 23) on 03/03/22, 2.7 (eGFR 15) on 04/18/22. Chronic kidney disease was attributed to NSAIDs, obstructive nephropathy and hypertension. Previous workup: Renal US on 11/04/19: Small bilateral kidneys with renal cortical atrophy showing no acute findings on ultrasound. Work up: Urinalysis on 08/30/22: Yellow, turbid, pH 6.0, SG 1.025, protein 100, blood large, leukocyte esterase large, urine culture pending. Progress: Serum creatinine decreased from 3.3 to 2.6 in the past 24 hours. Baseline creatinine 1.9 (eGFR 23) on 03/03/22, 2.7 (eGFR 15) on 04/18/22. Urine output: 1163 ml reported in the past 24 hours. Metabolic acidosis,improved. Hypokalemia, resolved. Recommendations/Plan: Anticipate no acute hemodialysis need. Outpatient nephrology follow up with Dr. Mejia. Status: Acute (2) Hyponatremia: Status: Acute Time Spent With Patient Time: Total time spent is greater than 50% in coordination of care (as documented) at patient's floor/unit and/or counseling patient:
[2022-09-04] MEDS: MIDODRINE 5 MG TABLET PO SCH (08:00)
[2022-09-04] MEDS ORDERED: PSYLLIUM HUSK 5.8 GM PACKET PO ONE (08:15)
--- NOTE | 2022-09-04 08:15 | Internal Med Progress Note ---
SUBJECTIVE Subjective Patient information: Note initiated : 09/04/22 at 8:12 am Service Date, if different from initiated Date: [] Patient: Janelle Rene 87 y/o F admitted on 08/31/22 for syncope. Chief Complaint: [] Principal diagnosis: UTI, septic shock, SHIVA on ckd Interval history: Patient seen examined, doing well, pleasantly confused No acute complaints or concerns, Still has high stoma output, good output from howell Renal function continues to improve. pt still quiet weak Off dopamine since yesterday, bp stable, got 1 dose of midodrine, but will hold this AM Encouraged oral intake Xfer to med surg status. Pertinent ROS: Denies headache, dizziness Denies chest pain, palpitations Denies cough or shortness of breath Denies abdominal pain, nausea or vomiting. Constitutional Vitals: Vital Signs Temp Pulse Resp BP Pulse Ox O2 Del Method O2 Flow Rate 97.9 F 82 14 107/57 97 0 09/04/22 00:00 09/04/22 07:00 09/04/22 07:00 09/04/22 07:00 09/04/22 07:00 09/04/22 07:00 09/04/22 03:11 Period Temp Pulse Resp BP Sys/Mistry Pulse Ox O2 Del Method O2 Flow Rate Last 24 Hr 97.5 F-98.2 F 51-86 9-26 65-120/39-97 94-99 Room Air-Room Air 0-0 Intake and Output 09/03/22 09/04/22 09/04/22 19:59 03:59 11:59 Intake Total 1035 50 1100 Output Total 0697 142 0670 Balance 10 -375 -135 Weight 79.288 kg Intake & Output: Intake & Output 09/03/22 09/04/22 09/04/22 19:59 03:59 11:59 Intake Total 1035 50 1100 Output Total 0987 774 9960 Balance 10 -375 -135 Weight 79.288 kg Intake: IV 566 35 2921 Sodium Chloride 0.9% 250 ml @ 150 20 mls/hr IV .[id number] [facility] Rx#: [id number] DOPamine 400 MG In Premix 1 Bag 15 @ 5 MCG/KG/MIN 14.373 mls/hr IV .[id number] [facility] Rx#:[id number] Lactated Ringers 1,000 ml @ 1000 Wide Open IV BOLUS ONE Rx#: [id number] Potassium Chloride 40 Meq In 520 Dextrose 5% in Water 500 ml @ 130 mls/hr IV ONCE ONE Rx#: [id number] Rocephin 2 gm In Dextrose 5% in 50 Water 50 ml @ 100 mls/hr IV Q24H [facility] Rx#:[id number] Oral 250 100 Output: Urine Catheter Amount 275 275 310 Void Amount 75 Stool 750 150 850 Other: Urine Appearance Clear Clear Clear Uretheral (Howell) Clear Clear Urine Color Yellow Yellow Pale Uretheral (Howell) Yellow Yellow Stool Size Large Stool Color Brown Brown Yellow Green Stool Consistency Liquid Watery # of times incontinent of 1 Bowels Exam: Constitutional; Afebrile, cooperative, alert, not in distress. Ears- Ext ear normal, hearing normal to conversation. Neck- Midline trachea, supple Respiratory system: Air Entry equal on both sides, No crackles or wheezing, no rhonchi. CVS- Rate rhythm regular, S1,S2 heard, no gallop, no rub. Abdomen- Soft nontender abdomen, no organomegaly, no tenderness, no guarding or rigidity, stoma noted, liquid greenish output GRANULATOR- AOOx2, moving all extremities, no gross focal deficit noted. OBJ DATA Labs CBC & Chem 7: 09/03/22 05:10 09/04/22 05:18 Labs: Abnormal Lab Results 09/04/22 09/03/22 09/03/22 05:18 05:10 05:09 RBC 3.51 L Hgb 10.3 L Hct 32.1 L RDW 15.7 H Immature Gran % (Auto) 0.7 H Immature Gran # Sodium Potassium 3.1 L Chloride Carbon Dioxide 20 L 18 L Anion Gap BUN 43 H 60 H Creatinine 2.6 H 3.3 H Uric Acid 8.3 H Calcium 8.0 L Magnesium 1.5 L GGT 52 H Lactate Dehydrogenase 250 H Total Protein 5.0 L Albumin 2.2 L Albumin/Globulin Ratio 0.8 L 09/02/22 09/01/22 09/01/22 05:20 08:33 05:22 RBC Hgb Hct RDW 14.6 H Immature Gran % (Auto) 0.7 H Immature Gran # 0.07 H Sodium 131 L 129 L Potassium 2.8 L* Chloride 93 L Carbon Dioxide 20 L 15 L Anion Gap 21.0 H BUN 73 H 98 H Creatinine 4.4 H 6.5 H* Uric Acid Calcium 8.1 L 8.4 L Magnesium GGT Lactate Dehydrogenase Total Protein 5.7 L Albumin 2.7 L Albumin/Globulin Ratio 0.9 L Meds: Medications Acetaminophen (Acetaminophen 325 Mg Tablet) 650 mg PO Q4-6HP PRN; Protocol PRN Reason: Per Pain Protocol/Fever > 101 Last Admin: 09/04/22 06:59 Dose: 650 mg Cholestyramine Resin (Cholestyramine/Aspartame 4 Gm Powd.Pack) 4 gm PO QID [facility] Last Admin: 09/03/22 22:51 Dose: 4 gm Donepezil HCl (Donepezil 10 Mg Tablet) 10 mg PO QDAY [facility] Last Admin: 09/03/22 08:21 Dose: 10 mg Folic Acid (Folic Acid 1 Mg Tablet) 1 mg PO DAILY [facility] Last Admin: 09/03/22 08:21 Dose: 1 mg Gabapentin (Gabapentin 100 Mg Capsule) 100 mg PO QDAY [facility] Last Admin: 09/03/22 08:21 Dose: 100 mg Heparin Sodium (Porcine) (Heparin 5,000 Unit/Ml Vial) 5,000 unit SQ Q12 [facility] Last Admin: 09/03/22 21:23 Dose: 5,000 unit Ceftriaxone Sodium 2 gm/ (Dextrose) 50 mls @ 100 mls/hr IV Q24H [facility]; Protocol Last Infusion: 09/03/22 21:24 Dose: Infused Sodium Chloride (Sodium Chloride 0.9%) 250 mls @ 20 mls/hr IV .[id number] [facility] Last Admin: 09/04/22 05:34 Dose: Not Given Sodium Chloride (Sodium Chloride 0.9%) 250 mls @ 20 mls/hr IV .[id number] [facility] Last Admin: 09/04/22 05:03 Dose: Not Given Levothyroxine Sodium (Levothyroxine 150 Mcg Tablet) 150 mcg PO QAMAC [facility] Last Admin: 09/04/22 06:59 Dose: 150 mcg Levothyroxine Sodium (Levothyroxine 25 Mcg Tablet) 25 mcg PO QAMAC [facility] Last Admin: 09/04/22 06:59 Dose: 25 mcg Memantine (Memantine 10 Mg Tablet) 10 mg PO BID [facility] Last Admin: 09/03/22 21:23 Dose: 10 mg Midodrine (Midodrine 5 Mg Tablet) 5 mg PO TID@0800,1200,1700 [facility] Last Admin: 09/04/22 08:00 Dose: Not Given Mirtazapine (Mirtazapine 15 Mg Tablet) 7.5 mg PO QHS [facility] Last Admin: 09/03/22 21:23 Dose: 7.5 mg Ondansetron HCl (Ondansetron 4 Mg/2 Ml Vial) 4 mg IV Q4-6HP PRN; Protocol PRN Reason: Nausea And Vomiting Last Admin: 08/31/22 23:07 Dose: 4 mg Quetiapine Fumarate (Quetiapine 25 Mg Tablet) 25 mg PO HSP PRN PRN Reason: Agitation Last Admin: 09/04/22 01:44 Dose: 25 mg Senna (Sennosides 1 Tablet) 1 tab PO HSP PRN PRN Reason: Constipation Sodium Bicarbonate (Sodium Bicarbonate 650 Mg Tablet) 650 mg PO BID [facility] Last Admin: 09/03/22 21:23 Dose: 650 mg Sodium Chloride (0.9 % Sodium Chloride 10 Ml Syringe) 10 ml IV Q8 [facility] Last Admin: 09/04/22 06:16 Dose: 10 ml A/P Narrative A/P Narrative: Pleasant 87 years old female with past medical history significant for chronic kidney disease stage IV, history of ulcerative colitis status post total colectomy and ileostomy brought to emergency room with following problem list: #Acute on chronic Stage IV kidney injury. Nonoliguric -Most likely ATN due to poor p.o. intake/hypotension. No rhabdomyolysis CPK 158 - Renal US on 11/04/19: Small bilateral kidneys with renal cortical atrophy showing no acute findings on ultrasound. - UA SG 1.025, protein 100, blood large, leukocyte esterase large, urine culture pending. -Baseline BUN/creatinine 67/2.7. On admit 148/10.7, potassium 5.6, no acidemia. -No indication for dialysis. Patient received 2 L IV fluid and her renal function trending down -Off dopamine ggt, got one dose of midodrine, - Dopamine gtt , plan to initiate weaning from today, d/c IVF -Avoid hypotension. Strict I's and O's. Avoid nephrotoxic agent. -Nephrology following. -Creatinine 2.6 today, good urine output. #Hypovolemic shock. -Due to poor p.o. intake and high output ileostomy. No signs of bleeding. Hemoglobin is stable. -tolerating po well, d/c iv fluids and IV dopamine, monitor renal function and hemodynamics off them to see if pt can be weaned off -echo shows normal lvef, normal tsh, and cortisol, -bp now stable #Hypokalemia. =K now normalized #Hyperkalemia due to SHIVA. Resolved a #Hyponatremia. Most likely due to hypovolemia. -resolved #Bacteriuria. Patient has Howell catheter. She is unaware of dysuria -Treat empirically with Rocephin 1 g daily and follow urine culture. Treat 3-5 days total -urine culture reviewed (klebsiella) , await sensitivity -d/c howell # Gap Metabolic Acidosis. - Due to SHIVA. Resolved. Cont home Bicarb PO #Recent fall with left knee fracture. #Acute traumatic L.knee Fracture. Will D/w Ortho -Patient was seen by orthopedic surgery at [facility]. Recommend partial weightbearing and immobilizer -OT/PT #History of ulcerative colitis, status post total colectomy and ileostomy -High output ileostomy. encourage oral fluid intake -started on banatrol, resumed her home dose of cholestyramine, and will add physilium husk to help improve stoma output #Dementia. Baseline alert oriented X 2- 3 -Continue Donepezil and memantine CODE STATUS: Full code DVT prophylaxis: Heparin 5000 twice daily Alternative decision maker: Patient's daughter. Time Spent With Patient Time: Total time spent is greater than 50% in coordination of care (as documented) at patient's floor/unit and/or counseling patient: QUALITY VTE Deep Vein Thrombosis/Pulmonary Embolism Present on Admission: No
[2022-09-04] MEDS: DONEPEZIL 10 MG TABLET PO SCH (08:32)
[2022-09-04 08:33] LABS: POC Blood Urea Nitrogen > 140 (6-20); POC Calcium, Ionized 1.08 (1.16-1.32); POC Chloride 81 (96-108); POC Creatinine 12.6 (0.6-1.2); POC Glucose, Random 122 (70-105); POC Potassium 5.1 (3.3-5.1); POC Sodium 124 (133-145)
[2022-09-04] MEDS: MEMANTINE 10 MG TABLET PO SCH ×2 (08:33→21:39)
[2022-09-04] MEDS: GABAPENTIN 100 MG CAPSULE PO SCH (08:33)
[2022-09-04] MEDS: HEPARIN 5,000 UNIT/ML VIAL SQ SCH ×2 (08:33→21:38)
[2022-09-04] MEDS: SODIUM BICARBONATE 650 MG TABLET PO SCH ×2 (08:33→21:38)
[2022-09-04] MEDS: FOLIC ACID 1 MG TABLET PO SCH (08:33)
[2022-09-04] MEDS: PSYLLIUM HUSK 5.8 GM PACKET PO SCH ×3 (08:42→21:38)
[2022-09-04] MEDS ORDERED: FLU VACC QS2022-23(6MOS UP)/PF 60 MCG/0.5 ML SYRINGE IM ONE (09:00)
[2022-09-04] MEDS: CHOLESTYRAMINE/ASPARTAME 4 GM POWD.PACK PO SCH ×4 (09:45→21:37)
[2022-09-04] MEDS ORDERED: MAGNESIUM SULFATE 8.12 MEQ in DEXTROSE 5% IN WATER 50 ML IV ONE (10:23)
[2022-09-04] MEDS: MIRTAZAPINE 15 MG TABLET PO SCH (21:38)
[2022-09-05] MEDS: ACETAMINOPHEN 325 MG TABLET PO PRN ×2 (03:48→19:21)
[2022-09-05 06:59] LABS: ALT/SGPT 5 U/L (<40); AST/SGOT 12 U/L (<32); Albumin 2.5 gm/dL (3.2-5.2); Albumin/Globulin Ratio 0.9 (1.0-2.3); Alkaline Phosphatase 103 U/L (39-117); Bilirubin,Direct < 0.2 mg/dL (0-0.3); Bilirubin,Total 0.2 mg/dL (0.1-1.0); Blood Urea Nitrogen 47 mg/dL (8-23); Calcium 8.8 mg/dL (8.6-10.4); Carbon Dioxide 19 mmol/L (22-30); Chloride 103 mmol/L (96-108); Globulin 2.7 gm/dL (2.2-3.7); Glomerular Filtration Rate 14; Glucose 76 mg/dL (70-105); Lactate Dehydrogenase 162 U/L (135-225); Triglycerides 104 mg/dL (<150); Uric Acid 9.3 mg/dL (2.5-8.0)
--- NOTE | 2022-09-05 07:18 | Nephrology Progress Note ---
SUBJECTIVE Subjective Patient information: Note initiated : 09/05/22 at 7:16 am Patient: Janelle Rene 87 y/o F admitted on 08/31/22 for syncope. Chief Complaint: Weakness Principal diagnosis: UTI, septic shock, SHIVA on ckd Pertinent ROS: Weakness Townsend catheter Ileostomy Constitutional Vitals: Vital Signs Temp Pulse Resp BP Pulse Ox O2 Del Method O2 Flow Rate 98.0 F 79 12 112/62 97 0 09/05/22 03:34 09/05/22 03:34 09/05/22 03:34 09/05/22 03:34 09/05/22 03:34 09/05/22 03:34 09/04/22 03:11 Period Temp Pulse Resp BP Sys/Mistry Pulse Ox O2 Del Method O2 Flow Rate Last 24 Hr 97.7 F-98.2 F 64-79 12-20 109-115/52-64 95-98 Room Air-Room Air Intake and Output 09/04/22 09/05/22 09/05/22 19:59 03:59 11:59 Intake Total 320 220 Output Total 1650 1100 Balance -1330 -880 Weight 168 lb 14.4 oz Intake & Output: Intake & Output 09/04/22 09/05/22 09/05/22 19:59 03:59 11:59 Intake Total 320 220 Output Total 1650 1100 Balance -1330 -880 Weight 168 lb 14.4 oz Intake: Oral 320 220 Output: Void Amount 200 Stool 1650 900 Other: Meal Dinner Percent of Meal Consumed 40% Feeding Ability Assist with Tray Set Up Urine Appearance Clear Urine Color Yellow Stool Color Brown Green Stool Consistency Liquid Watery General appearance: cooperative and no acute distress Head Head exam: Present normal inspection Eye Eye exam: Present normal appearance ENT ENT exam: Present mucous membranes moist Respiratory Respiratory exam: Absent respiratory distress Cardiovascular Cardiovascular exam: Present normal rate and rhythm GI/Abdominal GI/Abdominal exam: Present soft; Absent tenderness Extremities Exam Extremities exam: Absent joint swelling or pedal edema Neurological Exam Neurological exam: Present alert and oriented X3 Psychiatric Psychiatric exam: Present normal affect and normal mood Skin Skin exam: Present warm; Absent rash A/P Assessment and plan (1) Acute renal failure superimposed on stage 4 chronic kidney disease: Assessment and plan: Janelle Rene is an 87-year-old female, admitted on 08/31/22. She has dementia, s/p proctocolectomy with ileostomy, history of recurrent urinary tract infections, multiple bladder stones s/p removal by cystoscopy on 08/24/22, chronic kidney disease stage 4-5 (followed by Dr. Mejia). She presented to [facility] ED after a syncopal episode. Patient had a fall the previous night and was seen at [facility] ED. A left knee fracture was diagnosed. She was discharged home. In ED, she was found to be in acute kidney injury with hyperkalemia, metabolic acidosis and hyponatremia. She could not be transferred to a higher level of care. She had urine output after IV fluids. Her creatinine and electrolyte abnormalities improved. I saw her in ED with two daughters at the bedside. Nephrology consultation was requested for acute kidney injury. Acute kidney injury associated with acute cystitis intravascular volume depletion and on chronic kidney disease stage 4 with initial hyperkalemia, metabolic acidosis and hyponatremia, present on arrival, resolving. Acute cystitis with urine culture positive for Klebsiella pneumoniae. She has been followed by Dr. Mejia for nephrology. Baseline creatinine 1.9 (eGFR 23) on 03/03/22, 2.7 (eGFR 15) on 04/18/22. Chronic kidney disease was attributed to NSAIDs, obstructive nephropathy and hypertension. Previous workup: Renal US on 11/04/19: Small bilateral kidneys with renal cortical atrophy showing no acute findings on ultrasound. Work up: Urinalysis on 08/30/22: Yellow, turbid, pH 6.0, SG 1.025, protein 100, blood large, leukocyte esterase large, urine culture pending. Progress: Serum creatinine increased from 2.6 to 2.8 in the past 24 hours; eGFR 14. Baseline creatinine 1.9 (eGFR 23) on 03/03/22, 2.7 (eGFR 15) on 04/18/22. Urine output: 1163 ml reported in the past 24 hours. Metabolic acidosis. Recommendations/Plan: Anticipate no acute hemodialysis need. Outpatient nephrology follow up with Dr. Mejia. Status: Acute (2) Hyponatremia: Status: Acute Time Spent With Patient Time: Total time spent is greater than 50% in coordination of care (as documented) at patient's floor/unit and/or counseling patient:
[2022-09-05] MEDS: LEVOTHYROXINE 150 MCG TABLET PO SCH (08:30)
[2022-09-05] MEDS: 0.9 % SODIUM CHLORIDE 10 ML SYRINGE IV SCH ×3 (08:30→21:29)
[2022-09-05] MEDS: FOLIC ACID 1 MG TABLET PO SCH (08:31)
[2022-09-05] MEDS: SODIUM BICARBONATE 650 MG TABLET PO SCH ×2 (08:31→21:28)
[2022-09-05] MEDS: GABAPENTIN 100 MG CAPSULE PO SCH (08:31)
[2022-09-05] MEDS: DONEPEZIL 10 MG TABLET PO SCH (08:31)
[2022-09-05] MEDS: LEVOTHYROXINE 25 MCG TABLET PO SCH (08:32)
[2022-09-05] MEDS: CHOLESTYRAMINE/ASPARTAME 4 GM POWD.PACK PO SCH ×4 (08:32→21:28)
[2022-09-05] MEDS: HEPARIN 5,000 UNIT/ML VIAL SQ SCH ×2 (08:32→21:28)
[2022-09-05] MEDS: MEMANTINE 10 MG TABLET PO SCH ×2 (08:32→21:28)
[2022-09-05] MEDS: PSYLLIUM HUSK 5.8 GM PACKET PO SCH ×2 (08:32→21:28)
[2022-09-05] MEDS ORDERED: LOPERAMIDE 2 MG CAPSULE PO ONE (11:21)
--- NOTE | 2022-09-05 11:25 | Internal Med Progress Note ---
SUBJECTIVE Subjective Patient information: Note initiated : 09/05/22 at 11:21 am Service Date, if different from initiated Date: [] Patient: Janelle Rene 87 y/o F admitted on 08/31/22 for syncope. Chief Complaint: [] Principal diagnosis: UTI, Hypovolumic shock Interval history: Patient seen examined, doing well, pleasantly confused No acute complaints or concerns, but admits to being weak, does not remember what she ate for breakfast Still has high stoma output, Renal function slightty worse today pt still quiet weak BP stable at thsi time, Pertinent ROS: Denies headache, dizziness, fatigue and weakness present Denies chest pain, palpitations Denies cough or shortness of breath Denies abdominal pain, nausea or vomiting. Constitutional Vitals: Vital Signs Temp Pulse Resp BP Pulse Ox O2 Del Method O2 Flow Rate 98.4 F 78 20 111/60 96 0 09/05/22 08:00 09/05/22 08:00 09/05/22 08:00 09/05/22 08:00 09/05/22 08:00 09/05/22 08:00 09/04/22 03:11 Period Temp Pulse Resp BP Sys/Mistry Pulse Ox O2 Del Method O2 Flow Rate Last 24 Hr 97.7 F-98.4 F 64-79 12-20 110-115/52-62 95-98 Room Air-Room Air Intake and Output 09/04/22 09/05/22 09/05/22 19:59 03:59 11:59 Intake Total 320 220 Output Total 1650 1100 1475 Balance -1330 -880 -1475 Weight 76.612 kg Intake & Output: Intake & Output 09/04/22 09/05/22 09/05/22 19:59 03:59 11:59 Intake Total 320 220 Output Total 1650 1100 1475 Balance -1330 -880 -1475 Weight 76.612 kg Intake: Oral 320 220 Output: Void Amount 200 125 Stool 1650 900 750 Other 600 Other: Meal Dinner Percent of Meal Consumed 40% Feeding Ability Assist with Tray Set Up Urine Appearance Clear Clear Urine Color Yellow Yellow Stool Color Brown Yellow Green Stool Consistency Liquid Liquid Watery Watery Exam: Constitutional; Afebrile, cooperative, alert, not in distress. Ears- Ext ear normal, hearing normal to conversation. Neck- Midline trachea, supple Respiratory system: Air Entry equal on both sides, No crackles or wheezing, no rhonchi. CVS- Rate rhythm regular, S1,S2 heard, no gallop, no rub. Abdomen- Soft nontender abdomen, no organomegaly, no tenderness, no guarding or rigidity, stoma noted, liquid greenish output HAND STRIPER- AOOx2, moving all extremities, no gross focal deficit noted. OBJ DATA Labs CBC & Chem 7: 09/03/22 05:10 09/05/22 05:20 Labs: Abnormal Lab Results 09/05/22 09/04/22 09/03/22 05:20 05:18 05:10 RBC 3.51 L Hgb 10.3 L Hct 32.1 L RDW 15.7 H Immature Gran % (Auto) 0.7 H POC Sodium Potassium POC Chloride Carbon Dioxide 19 L 20 L POC BUN BUN 47 H 43 H Creatinine 2.8 H 2.6 H POC Creatinine POC Glucose Uric Acid 9.3 H 8.3 H Calcium POC WB Ioniz Calcium Magnesium 1.5 L GGT 66 H 52 H Lactate Dehydrogenase 250 H Total Protein 5.2 L 5.0 L Albumin 2.5 L 2.2 L Albumin/Globulin Ratio 0.9 L 0.8 L 09/03/22 08/30/22 05:09 16:56 RBC Hgb Hct RDW Immature Gran % (Auto) POC Sodium 124 L Potassium 3.1 L POC Chloride 81 L Carbon Dioxide 18 L POC BUN > 140 H* BUN 60 H Creatinine 3.3 H POC Creatinine 12.6 H* POC Glucose 122 H Uric Acid Calcium 8.0 L POC WB Ioniz Calcium 1.08 L Magnesium GGT Lactate Dehydrogenase Total Protein Albumin Albumin/Globulin Ratio Meds: Medications Acetaminophen (Acetaminophen 325 Mg Tablet) 650 mg PO Q4-6HP PRN; Protocol PRN Reason: Per Pain Protocol/Fever > 101 Last Admin: 09/05/22 03:48 Dose: 650 mg Cholestyramine Resin (Cholestyramine/Aspartame 4 Gm Powd.Pack) 4 gm PO QID [facility] Last Admin: 09/05/22 08:32 Dose: 4 gm Donepezil HCl (Donepezil 10 Mg Tablet) 10 mg PO QDAY [facility] Last Admin: 09/05/22 08:31 Dose: 10 mg Folic Acid (Folic Acid 1 Mg Tablet) 1 mg PO DAILY [facility] Last Admin: 09/05/22 08:31 Dose: 1 mg Gabapentin (Gabapentin 100 Mg Capsule) 100 mg PO QDAY [facility] Last Admin: 09/05/22 08:31 Dose: 100 mg Heparin Sodium (Porcine) (Heparin 5,000 Unit/Ml Vial) 5,000 unit SQ Q12 [facility] Last Admin: 09/05/22 08:32 Dose: 5,000 unit Levothyroxine Sodium (Levothyroxine 150 Mcg Tablet) 150 mcg PO QAMAC [facility] Last Admin: 09/05/22 08:30 Dose: 150 mcg Levothyroxine Sodium (Levothyroxine 25 Mcg Tablet) 25 mcg PO QAMAC [facility] Last Admin: 09/05/22 08:32 Dose: 25 mcg Memantine (Memantine 10 Mg Tablet) 10 mg PO BID [facility] Last Admin: 09/05/22 08:32 Dose: 10 mg Mirtazapine (Mirtazapine 15 Mg Tablet) 7.5 mg PO QHS [facility] Last Admin: 09/04/22 21:38 Dose: 7.5 mg Ondansetron HCl (Ondansetron 4 Mg/2 Ml Vial) 4 mg IV Q4-6HP PRN; Protocol PRN Reason: Nausea And Vomiting Last Admin: 08/31/22 23:07 Dose: 4 mg Psyllium Hydrophilic Mucilloid (Psyllium Husk 5.8 Gm Packet) 6 gm PO BID [facility] Last Admin: 09/05/22 08:32 Dose: 6 gm Quetiapine Fumarate (Quetiapine 25 Mg Tablet) 25 mg PO HSP PRN PRN Reason: Agitation Last Admin: 09/04/22 01:44 Dose: 25 mg Senna (Sennosides 1 Tablet) 1 tab PO HSP PRN PRN Reason: Constipation Sodium Bicarbonate (Sodium Bicarbonate 650 Mg Tablet) 650 mg PO BID [facility] Last Admin: 09/05/22 08:31 Dose: 650 mg Sodium Chloride (0.9 % Sodium Chloride 10 Ml Syringe) 10 ml IV Q8 [facility] Last Admin: 09/05/22 08:30 Dose: 10 ml A/P Narrative A/P Narrative: Pleasant 87 years old female with past medical history significant for chronic kidney disease stage IV, history of ulcerative colitis status post total colectomy and ileostomy brought to emergency room with following problem list: #Acute on chronic Stage IV kidney injury. Nonoliguric -Most likely ATN due to poor p.o. intake/hypotension. No rhabdomyolysis CPK 158 - Renal US on 11/04/19: Small bilateral kidneys with renal cortical atrophy showing no acute findings on ultrasound. - UA SG 1.025, protein 100, blood large, leukocyte esterase large, urine culture pending. -Baseline BUN/creatinine 67/2.7. On admit 148/10.7, potassium 5.6, no acidemia. -No indication for dialysis. Patient received 2 L IV fluid and her renal function trending down -Off dopamine ggt, got one dose of midodrine, - Dopamine gtt , plan to initiate weaning from today, d/c IVF -Avoid hypotension. Strict I's and O's. Avoid nephrotoxic agent. -Nephrology following. -Creatinine 2.8 today, up from 2.6, good urine output. #Hypovolemic shock. -Due to poor p.o. intake and high output ileostomy. No signs of bleeding. Hemoglobin is stable. -tolerating po well, d/c iv fluids and IV dopamine, monitor renal function and hemodynamics off them to see if pt can be weaned off -echo shows normal lvef, normal tsh, and cortisol, -bp now stable , continue to monitor #Hypokalemia. =K now normalized =-normal diet should help #Hyperkalemia due to SHIVA. Resolved a #Hyponatremia. Most likely due to hypovolemia. -resolved #Bacteriuria. Patient has Howell catheter. She is unaware of dysuria -Treat empirically with Rocephin 1 g daily and follow urine culture. Treat 3-5 days total, completed treatment -urine culture reviewed (klebsiella) , await sensitivity -d/c howell # Gap Metabolic Acidosis. - Due to SHIVA. Resolved. Cont home Bicarb PO #Recent fall with left knee fracture. #Acute traumatic L.knee Fracture. Will D/w Dr.Hanson Joshi -Patient was seen by orthopedic surgery at [facility]. Recommend partial weightbearing and immobilizer -OT/PT #History of ulcerative colitis, status post total colectomy and ileostomy -High output ileostomy. encourage oral fluid intake -started on banatrol, resumed her home dose of cholestyramine, and will add physilium husk to help improve stoma output -added loperamide today to see if this helps, #Dementia. Baseline alert oriented X 2- 3 -Continue Donepezil and memantine CODE STATUS: Full code DVT prophylaxis: Heparin 5000 twice daily Alternative decision maker: Patient's daughter. Time Spent With Patient Time: Total time spent is greater than 50% in coordination of care (as documented) at patient's floor/unit and/or counseling patient: QUALITY VTE Deep Vein Thrombosis/Pulmonary Embolism Present on Admission: No
[2022-09-05] MEDS: LOPERAMIDE 2 MG CAPSULE PO PRN (12:19)
[2022-09-05] MEDS: MIRTAZAPINE 15 MG TABLET PO SCH (21:28)
[2022-09-06] MEDS: 0.9 % SODIUM CHLORIDE 10 ML SYRINGE IV SCH ×3 (05:02→22:00)
[2022-09-06 07:12] LABS: ALT/SGPT 7 U/L (<40); AST/SGOT 15 U/L (<32); Albumin 2.6 gm/dL (3.2-5.2); Albumin/Globulin Ratio 0.9 (1.0-2.3); Alkaline Phosphatase 122 U/L (39-117); Bilirubin,Direct < 0.2 mg/dL (0-0.3); Bilirubin,Total 0.2 mg/dL (0.1-1.0); Blood Urea Nitrogen 50 mg/dL (8-23); Calcium 9.2 mg/dL (8.6-10.4); Carbon Dioxide 18 mmol/L (22-30); Chloride 104 mmol/L (96-108); Glomerular Filtration Rate 14; Glucose 75 mg/dL (70-105); Lactate Dehydrogenase 167 U/L (135-225); Phosphorous 3.1 mg/dL (2.5-4.5); Triglycerides 133 mg/dL (<150); Uric Acid 9.8 mg/dL (2.5-8.0)
[2022-09-06] MEDS: LEVOTHYROXINE 25 MCG TABLET PO SCH (07:20)
[2022-09-06] MEDS: LEVOTHYROXINE 150 MCG TABLET PO SCH (07:21)
[2022-09-06] MEDS: ACETAMINOPHEN 325 MG TABLET PO PRN ×2 (07:21→16:19)
--- NOTE | 2022-09-06 07:29 | Nephrology Progress Note ---
SUBJECTIVE Subjective Patient information: Note initiated : 09/06/22 at 7:28 am Patient: Janelle Rene 87 y/o F admitted on 08/31/22 for syncope. Chief Complaint: Weakness Principal diagnosis: UTI, Hypovolumic shock Pertinent ROS: Weakness Ileostomy Feels better Constitutional Vitals: Vital Signs Temp Pulse Resp BP Pulse Ox O2 Del Method O2 Flow Rate 98.1 F 75 16 110/61 95 0 09/06/22 07:19 09/06/22 07:19 09/06/22 07:19 09/06/22 07:19 09/06/22 07:19 09/06/22 07:19 09/04/22 03:11 Period Temp Pulse Resp BP Sys/Mistry Pulse Ox O2 Del Method O2 Flow Rate Last 24 Hr 97.9 F-98.6 F 70-78 16-20 110-120/53-74 94-97 Room Air-Room Air Intake and Output 09/05/22 09/06/22 09/06/22 19:59 03:59 11:59 Intake Total 360 Output Total 425 526 Balance -425 -166 Weight 165 lb 11.2 oz Intake & Output: Intake & Output 09/05/22 09/06/22 09/06/22 19:59 03:59 11:59 Intake Total 360 Output Total 425 526 Balance -425 -166 Weight 165 lb 11.2 oz Intake: Oral 360 Output: # of times incontinent of urine 1 Stool 425 525 Other: Meal Dinner Percent of Meal Consumed 0% Feeding Ability Assist with Tray Set Up Stool Color Green Green Stool Consistency Liquid Watery # of times incontinent of 1 Bowels General appearance: cooperative and no acute distress Head Head exam: Present normal inspection Eye Eye exam: Present normal appearance ENT ENT exam: Present mucous membranes moist Respiratory Respiratory exam: Absent respiratory distress Cardiovascular Cardiovascular exam: Present normal rate and rhythm GI/Abdominal GI/Abdominal exam: Present soft; Absent tenderness Extremities Exam Extremities exam: Absent joint swelling or pedal edema Neurological Exam Neurological exam: Present alert and oriented X3 Psychiatric Psychiatric exam: Present normal affect and normal mood Skin Skin exam: Present warm; Absent rash A/P Assessment and plan (1) Acute renal failure superimposed on stage 4 chronic kidney disease: Assessment and plan: Janelle Rene is an 87-year-old female, admitted on 08/31/22. She has dementia, s/p proctocolectomy with ileostomy, history of recurrent urinary tract infections, multiple bladder stones s/p removal by cystoscopy on 08/24/22, chronic kidney disease stage 4-5 (followed by Dr. Mejia). She presented to [facility] ED after a syncopal episode. Patient had a fall the previous night and was seen at [facility] ED. A left knee fracture was diagnosed. She was discharged home. In ED, she was found to be in acute kidney injury with hyperkalemia, metabolic acidosis and hyponatremia. She could not be transferred to a higher level of care. She had urine output after IV fluids. Her creatinine and electrolyte abnormalities improved. I saw her in ED with two daughters at the bedside. Nephrology consultation was requested for acute kidney injury. Acute kidney injury associated with acute cystitis intravascular volume depletion and on chronic kidney disease stage 4 with initial hyperkalemia, metabolic acidosis and hyponatremia, present on arrival, resolving. Acute cystitis with urine culture positive for Klebsiella pneumoniae. She has been followed by Dr. Mejia for nephrology. Baseline creatinine 1.9 (eGFR 23) on 03/03/22, 2.7 (eGFR 15) on 04/18/22. Chronic kidney disease was attributed to NSAIDs, obstructive nephropathy and hypertension. Previous workup: Renal US on 11/04/19: Small bilateral kidneys with renal cortical atrophy showing no acute findings on ultrasound. Work up: Urinalysis on 08/30/22: Yellow, turbid, pH 6.0, SG 1.025, protein 100, blood large, leukocyte esterase large, urine culture pending. Progress: Serum creatinine increased from 2.8 to 2.9 in the past 24 hours; eGFR 14. Baseline creatinine 1.9 (eGFR 23) on 03/03/22, 2.7 (eGFR 15) on 04/18/22. Urine output: 685 ml reported in the past 24 hours. Metabolic acidosis. Recommendations/Plan: Anticipate no acute hemodialysis need. Outpatient nephrology follow up with Dr. Mejia. Status: Acute (2) Hyponatremia: Status: Acute Time Spent With Patient Time: Total time spent is greater than 50% in coordination of care (as documented) at patient's floor/unit and/or counseling patient:
[2022-09-06] MEDS: PSYLLIUM HUSK 5.8 GM PACKET PO SCH ×2 (08:32→22:00)
[2022-09-06] MEDS: CHOLESTYRAMINE/ASPARTAME 4 GM POWD.PACK PO SCH ×4 (08:32→23:53)
[2022-09-06] MEDS: HEPARIN 5,000 UNIT/ML VIAL SQ SCH ×2 (08:34→22:00)
[2022-09-06] MEDS: FOLIC ACID 1 MG TABLET PO SCH (08:35)
[2022-09-06] MEDS: MEMANTINE 10 MG TABLET PO SCH ×2 (08:35→21:58)
[2022-09-06] MEDS: SODIUM BICARBONATE 650 MG TABLET PO SCH ×2 (08:35→21:58)
[2022-09-06] MEDS: GABAPENTIN 100 MG CAPSULE PO SCH (08:35)
[2022-09-06] MEDS: DONEPEZIL 10 MG TABLET PO SCH (08:35)
[2022-09-06] MEDS: LOPERAMIDE 2 MG CAPSULE PO PRN (08:39)
[2022-09-06 10:55] LABS: Opiate Confirmation Positive
[2022-09-06] MEDS ORDERED: 0.9 % SODIUM CHLORIDE 1,000 ML IV ONE (13:11)
--- NOTE | 2022-09-06 13:19 | Internal Med Progress Note ---
SUBJECTIVE Subjective Patient information: Note initiated : 09/06/22 at 1:18 pm Service Date, if different from initiated Date: [] Patient: Janelle Rene 87 y/o F admitted on 08/31/22 for syncope. Chief Complaint: [] Principal diagnosis: UTI, Hypovolumic shock Interval history: 09/06 Stable overnight, alert, oriented today. Daughter at bedside when I visited.Patient continues to have high ileostomy output, BUN and creatinine trending up. Resumed IV fluid. Increased loperamide to 4 mg 3 times daily with meals, started octreotide 100 mcg 3 times daily. Physical exam Head: Atraumatic, normal inspection. Eyes: normal appearance, no scleral icterus. Neck: full ROM Respiratory: no respiratory distress. Cardiovascular: normal rate and rhythm, S1, S2. GI/Abdominal: soft, nontender, no guarding. Extremities: full range of motion, nontender. Neurological: CN II-XII intact, intact motor, intact sensation. Psychiatric: normal mood. Skin: warm, normal color Constitutional Vitals: Vital Signs Temp Pulse Resp BP Pulse Ox O2 Del Method O2 Flow Rate 98.5 F 70 16 111/58 95 0 09/06/22 11:18 09/06/22 11:18 09/06/22 11:18 09/06/22 11:18 09/06/22 11:18 09/06/22 11:18 09/04/22 03:11 Period Temp Pulse Resp BP Sys/Mistry Pulse Ox O2 Del Method O2 Flow Rate Last 24 Hr 97.9 F-98.6 F 70-77 16-18 110-120/56-74 94-97 Room Air-Room Air Intake and Output 09/06/22 09/06/22 09/06/22 03:59 11:59 19:59 Intake Total 360 480 Output Total 257 233 4367 Balance -641 -750 570 Weight 75.16 kg Intake & Output: Intake & Output 09/06/22 09/06/22 09/06/22 03:59 11:59 19:59 Intake Total 360 480 Output Total 572 861 0809 Balance -166 750 -570 Weight 75.16 kg Intake: Oral 360 480 Output: # of times incontinent of urine 1 Stool 525 1050 Other 750 Other: Meal Breakfast Percent of Meal Consumed 100% Feeding Ability Assist with Tray Set Up Stool Size Moderate Stool Color Green Green Green Stool Consistency Liquid Liquid Watery Watery # of times incontinent of 1 Bowels OBJ DATA Labs CBC & Chem 7: 09/03/22 05:10 09/06/22 05:23 Labs: Abnormal Lab Results 09/06/22 09/05/22 09/04/22 05:23 05:20 05:18 POC Sodium POC Chloride Carbon Dioxide 18 L 19 L 20 L POC BUN BUN 50 H 47 H 43 H Creatinine 2.9 H 2.8 H 2.6 H POC Creatinine POC Glucose Uric Acid 9.8 H 9.3 H 8.3 H POC WB Ioniz Calcium Magnesium 1.5 L GGT 80 H 66 H 52 H Alkaline Phosphatase 122 H Lactate Dehydrogenase 250 H Total Protein 5.6 L 5.2 L 5.0 L Albumin 2.6 L 2.5 L 2.2 L Albumin/Globulin Ratio 0.9 L 0.9 L 0.8 L 08/30/22 16:56 POC Sodium 124 L POC Chloride 81 L Carbon Dioxide POC BUN > 140 H* BUN Creatinine POC Creatinine 12.6 H* POC Glucose 122 H Uric Acid POC WB Ioniz Calcium 1.08 L Magnesium GGT Alkaline Phosphatase Lactate Dehydrogenase Total Protein Albumin Albumin/Globulin Ratio Meds: Medications Acetaminophen (Acetaminophen 325 Mg Tablet) 650 mg PO Q4-6HP PRN; Protocol PRN Reason: Per Pain Protocol/Fever > 101 Last Admin: 09/06/22 07:21 Dose: 650 mg Cholestyramine Resin (Cholestyramine/Aspartame 4 Gm Powd.Pack) 4 gm PO QID [facility] Last Admin: 09/06/22 08:32 Dose: 4 gm Donepezil HCl (Donepezil 10 Mg Tablet) 10 mg PO QDAY [facility] Last Admin: 09/06/22 08:35 Dose: 10 mg Folic Acid (Folic Acid 1 Mg Tablet) 1 mg PO DAILY [facility] Last Admin: 09/06/22 08:35 Dose: 1 mg Gabapentin (Gabapentin 100 Mg Capsule) 100 mg PO QDAY [facility] Last Admin: 09/06/22 08:35 Dose: 100 mg Heparin Sodium (Porcine) (Heparin 5,000 Unit/Ml Vial) 5,000 unit SQ Q12 [facility] Last Admin: 09/06/22 08:34 Dose: 5,000 unit Sodium Chloride (Sodium Chloride 0.9%) 1,000 mls @ 100 mls/hr IV .Q10H [facility] Levothyroxine Sodium (Levothyroxine 150 Mcg Tablet) 150 mcg PO QAMAC [facility] Last Admin: 09/06/22 07:21 Dose: 150 mcg Levothyroxine Sodium (Levothyroxine 25 Mcg Tablet) 25 mcg PO QAMAC [facility] Last Admin: 09/06/22 07:20 Dose: 25 mcg Loperamide HCl (Loperamide 2 Mg Capsule) 4 mg PO AC [facility] Memantine (Memantine 10 Mg Tablet) 10 mg PO BID [facility] Last Admin: 09/06/22 08:35 Dose: 10 mg Mirtazapine (Mirtazapine 15 Mg Tablet) 7.5 mg PO QHS [facility] Last Admin: 09/05/22 21:28 Dose: 7.5 mg Octreotide Acetate (Octreotide Acetate 100 Mcg/Ml Vial) 100 mcg SQ TID [facility] Ondansetron HCl (Ondansetron 4 Mg/2 Ml Vial) 4 mg IV Q4-6HP PRN; Protocol PRN Reason: Nausea And Vomiting Last Admin: 08/31/22 23:07 Dose: 4 mg Psyllium Hydrophilic Mucilloid (Psyllium Husk 5.8 Gm Packet) 6 gm PO BID [facility] Last Admin: 09/06/22 08:32 Dose: 6 gm Quetiapine Fumarate (Quetiapine 25 Mg Tablet) 25 mg PO HSP PRN PRN Reason: Agitation Last Admin: 09/04/22 01:44 Dose: 25 mg Senna (Sennosides 1 Tablet) 1 tab PO HSP PRN PRN Reason: Constipation Sodium Bicarbonate (Sodium Bicarbonate 650 Mg Tablet) 650 mg PO BID [facility] Last Admin: 09/06/22 08:35 Dose: 650 mg Sodium Chloride (0.9 % Sodium Chloride 10 Ml Syringe) 10 ml IV Q8 [facility] Last Admin: 09/06/22 05:02 Dose: 10 ml A/P Narrative A/P Narrative: Assessment: 87-year-old female with a past medical history for chronic kidney disease stage III, ulcerative colitis status post total colectomy and ileostomy admitted for hypovolemic shock felt to be secondary to high output ileostomy complicated by acute on chronic kidney disease injury. #Acute on chronic kidney disease stage IV injury #Resolved hypovolemic shock #High output ileostomy #Metabolic acidosis due to CKD #UTI secondary to Klebsiella #Recent fall with left knee fracture #History of ulcerative colitis status post colectomy and ileostomy #Generalized weakness #Frailty #Dementia Plan -IV fluid today. -Increase loperamide to 4 mg daily's 3 times daily with meals. -Start octreotide 100 mcg SQ 3 times daily. -Continue cholestyramine and Metamucil and Banatrol. -Monitor renal function, electrolytes, urine output. -Nephrology following. -Regular diet. -DVT prophylaxis: Heparin SQ -CODE STATUS: Full -Disposition: Low intensity rehab when medically stable. Time Spent With Patient Time: Total time spent is greater than 50% in coordination of care (as documented) at patient's floor/unit and/or counseling patient: QUALITY VTE Deep Vein Thrombosis/Pulmonary Embolism Present on Admission: No
[2022-09-06] MEDS: OCTREOTIDE ACETATE 100 MCG/ML VIAL SQ SCH ×2 (15:00→21:59)
[2022-09-06] MEDS: 0.9 % SODIUM CHLORIDE 1,000 ML IV SCH (15:16)
[2022-09-06] MEDS ORDERED: LOPERAMIDE 2 MG CAPSULE PO SCH ×2 (17:00)
[2022-09-06] MEDS: LOPERAMIDE 2 MG CAPSULE PO SCH (17:22)
[2022-09-06] MEDS ORDERED: oxyCODONE HCL 5 MG TABLET PO PRN (17:31)
[2022-09-06] MEDS: ACETAMINOPHEN 500 MG TABLET PO SCH (19:13)
[2022-09-06] MEDS: MIRTAZAPINE 15 MG TABLET PO SCH (21:58)
[2022-09-07] MEDS: ACETAMINOPHEN 500 MG TABLET PO SCH ×3 (02:10→19:51)
[2022-09-07] MEDS: 0.9 % SODIUM CHLORIDE 1,000 ML IV SCH ×2 (02:11→11:37)
[2022-09-07] MEDS: 0.9 % SODIUM CHLORIDE 10 ML SYRINGE IV SCH ×3 (05:46→20:47)
[2022-09-07 07:17] LABS: ALT/SGPT 5 U/L (<40); AST/SGOT 13 U/L (<32); Albumin 2.3 gm/dL (3.2-5.2); Albumin/Globulin Ratio 0.9 (1.0-2.3); Alkaline Phosphatase 101 U/L (39-117); Bilirubin,Direct < 0.2 mg/dL (0-0.3); Bilirubin,Total 0.2 mg/dL (0.1-1.0); Blood Urea Nitrogen 42 mg/dL (8-23); Calcium 8.3 mg/dL (8.6-10.4); Carbon Dioxide 18 mmol/L (22-30); Chloride 104 mmol/L (96-108); Globulin 2.7 gm/dL (2.2-3.7); Glomerular Filtration Rate 17; Glucose 94 mg/dL (70-105); Lactate Dehydrogenase 161 U/L (135-225); Phosphorous 3.4 mg/dL (2.5-4.5); Triglycerides 111 mg/dL (<150); Uric Acid 8.4 mg/dL (2.5-8.0)
--- NOTE | 2022-09-07 08:22 | Nephrology Progress Note ---
SUBJECTIVE Subjective Patient information: Note initiated : 09/07/22 at 8:20 am Patient: Janelle Rene 87 y/o F admitted on 08/31/22 for syncope. Chief Complaint: Weakness Principal diagnosis: UTI, Hypovolumic shock Pertinent ROS: Weakness improved Feels better Ileostomy Constitutional Vitals: Vital Signs Temp Pulse Resp BP Pulse Ox O2 Del Method O2 Flow Rate 97.5 F 66 16 101/67 97 0 09/07/22 06:32 09/07/22 06:32 09/07/22 06:32 09/07/22 06:32 09/07/22 06:32 09/07/22 06:32 09/04/22 03:11 Period Temp Pulse Resp BP Sys/Mistry Pulse Ox O2 Del Method O2 Flow Rate Last 24 Hr 97.2 F-98.5 F 62-79 15-17 84-111/53-67 95-98 Room Air-Room Air Intake and Output 09/06/22 09/07/22 09/07/22 19:59 03:59 11:59 Intake Total 1960 1000 700 Output Total 1050 580 Balance 910 1000 120 Weight 165 lb 11.2 oz 168 lb 9.6 oz Intake & Output: Intake & Output 09/06/22 09/07/22 09/07/22 19:59 03:59 11:59 Intake Total 1960 1000 700 Output Total 1050 580 Balance 910 1000 120 Weight 165 lb 11.2 oz 168 lb 9.6 oz Intake: IV 1000 1000 Sodium Chloride 0.9% 1,000 ml @ 1000 1000 100 mls/hr IV .Q10H [facility] Rx#: [id number] Oral 960 700 Output: Urine Catheter Amount 580 Stool 1050 Other: Meal Lunch Dinner Percent of Meal Consumed 25% 75% Feeding Ability Assist with Tray Set Up Urine Appearance Clear Clear Urine Color Yellow Yellow Stool Size Moderate Stool Color Green Brown Stool Consistency Liquid Soft Watery Formed # Bowel Movements 1 General appearance: cooperative and no acute distress Head Head exam: Present normal inspection Eye Eye exam: Present normal appearance ENT ENT exam: Present mucous membranes moist Respiratory Respiratory exam: Absent respiratory distress Cardiovascular Cardiovascular exam: Present normal rate and rhythm GI/Abdominal GI/Abdominal exam: Present soft; Absent tenderness Extremities Exam Extremities exam: Absent joint swelling or pedal edema Neurological Exam Neurological exam: Present alert and oriented X3 Psychiatric Psychiatric exam: Present normal affect and normal mood Skin Skin exam: Present warm; Absent rash A/P Assessment and plan (1) Acute renal failure superimposed on stage 4 chronic kidney disease: Assessment and plan: Janelle Rene is an 87-year-old female, admitted on 08/31/22. She has dementia, s/p proctocolectomy with ileostomy, history of recurrent urinary tract infections, multiple bladder stones s/p removal by cystoscopy on 08/24/22, chron ic kidney disease stage 4-5 (followed by Dr. Mejia). She presented to [facility] ED after a syncopal episode. Patient had a fall the previous night and was seen at [facility] ED. A left knee fracture was diagnosed. She was discharged home. In ED, she was found to be in acute kidney injury with hyperkalemia, metabolic acidosis and hyponatremia. She could not be transferred to a higher level of care. She had urine output after IV fluids. Her creatinine and electrolyte abnormalities improved. I saw her in ED with two daughters at the bedside. Nephrology consultation was requested for acute kidney injury. Acute kidney injury associated with acute cystitis intravascular volume depletion and on chronic kidney disease stage 4 with initial hyperkalemia, metabolic acidosis and hyponatremia, present on arrival, resolving. Acute cystitis with urine culture positive for Klebsiella pneumoniae. She has been followed by Dr. Mejia for nephrology. Baseline creatinine 1.9 (eGFR 23) on 03/03/22, 2.7 (eGFR 15) on 04/18/22. Chronic kidney disease was attributed to NSAIDs, obstructive nephropathy and hypertension. Previous workup: Renal US on 11/04/19: Small bilateral kidneys with renal cortical atrophy showing no acute findings on ultrasound. Work up: Urinalysis on 08/30/22: Yellow, turbid, pH 6.0, SG 1.025, protein 100, blood large, leukocyte esterase large, urine culture pending. Progress: Serum creatinine decreased from 2.9 to 2.5 in the past 24 hours; eGFR 17. Baseline creatinine 1.9 (eGFR 23) on 03/03/22, 2.7 (eGFR 15) on 04/18/22. Urine output: Not reported in the past 24 hours. Hyponatremia and metabolic acidosis, mild. Recommendations/Plan: Nephrology will sign off. Anticipate no acute hemodialysis need. Outpatient nephrology follow up with Dr. Mejia. Status: Acute (2) Hyponatremia: Status: Acute Time Spent With Patient Time: Total time spent is greater than 50% in coordination of care (as documented) at patient's floor/unit and/or counseling patient:
[2022-09-07] MEDS: CHOLESTYRAMINE/ASPARTAME 4 GM POWD.PACK PO SCH ×4 (08:40→23:45)
[2022-09-07] MEDS: HEPARIN 5,000 UNIT/ML VIAL SQ SCH ×2 (08:41→20:48)
[2022-09-07] MEDS: PSYLLIUM HUSK 5.8 GM PACKET PO SCH ×2 (08:41→20:48)
[2022-09-07] MEDS: FOLIC ACID 1 MG TABLET PO SCH (08:41)
[2022-09-07] MEDS: LOPERAMIDE 2 MG CAPSULE PO SCH ×3 (08:41→17:23)
[2022-09-07] MEDS: GABAPENTIN 100 MG CAPSULE PO SCH (08:42)
[2022-09-07] MEDS: SODIUM BICARBONATE 650 MG TABLET PO SCH ×2 (08:43→20:46)
[2022-09-07] MEDS: MEMANTINE 10 MG TABLET PO SCH ×2 (08:43→20:46)
[2022-09-07] MEDS: LEVOTHYROXINE 25 MCG TABLET PO SCH (08:43)
[2022-09-07] MEDS: DONEPEZIL 10 MG TABLET PO SCH (08:44)
[2022-09-07] MEDS: LEVOTHYROXINE 150 MCG TABLET PO SCH (08:44)
[2022-09-07] MEDS: OCTREOTIDE ACETATE 100 MCG/ML VIAL SQ SCH ×3 (10:04→20:47)
[2022-09-07] MEDS ORDERED: MAGNESIUM SULFATE 2 GM/50 ML BAG IV ONE (12:02)
--- NOTE | 2022-09-07 15:58 | Internal Med Progress Note ---
SUBJECTIVE Subjective Patient information: Note initiated : 09/07/22 at 3:55 pm Service Date, if different from initiated Date: [] Patient: Janelle Rene 87 y/o F admitted on 08/31/22 for syncope. Chief Complaint: [] Principal diagnosis: UTI, Hypovolumic shock Interval history: 09/06 Stable overnight, alert, oriented today. Daughter at bedside when I visited.Patient continues to have high ileostomy output, BUN and creatinine trending up. Resumed IV fluid. Increased loperamide to 4 mg 3 times daily with meals, started octreotide 100 mcg 3 times daily. 09/07 The patient's ostomy output has decreased with the changes made yesterday, renal function has also improved. We will continue IV fluids today then discontinue and continue to monitor. Physical exam Head: Atraumatic, normal inspection. Eyes: normal appearance, no scleral icterus. Neck: full ROM Respiratory: no respiratory distress. Cardiovascular: normal rate and rhythm, S1, S2. GI/Abdominal: Ostomy present with soft stool, soft, nontender, no guarding. Extremities: full range of motion, nontender. Neurological: CN II-XII intact, intact motor, intact sensation. Psychiatric: normal mood. Skin: warm, normal color Constitutional Vitals: Vital Signs Temp Pulse Resp BP Pulse Ox O2 Del Method O2 Flow Rate 98.1 F 58 L 16 133/70 97 0 09/07/22 12:00 09/07/22 12:00 09/07/22 12:00 09/07/22 12:00 09/07/22 12:00 09/07/22 12:00 09/04/22 03:11 Period Temp Pulse Resp BP Sys/Mistry Pulse Ox O2 Del Method O2 Flow Rate Last 24 Hr 97.2 F-98.2 F 58-79 15-17 84-133/53-70 95-98 Room Air-Room Air Intake and Output 09/07/22 09/07/22 09/07/22 03:59 11:59 19:59 Intake Total 1000 1643 530 Output Total 580 Balance 1000 1063 530 Weight 76.476 kg Intake & Output: Intake & Output 09/07/22 09/07/22 09/07/22 03:59 11:59 19:59 Intake Total 1000 1643 530 Output Total 580 Balance 1000 1063 530 Weight 76.476 kg Intake: IV 1000 943 50 Sodium Chloride 0.9% 1,000 ml @ 1000 943 100 mls/hr IV .Q10H [facility] Rx#: [id number] Oral 700 480 Output: Urine Catheter Amount 580 Other: Meal Dinner Breakfast Percent of Meal Consumed 75% 100% Feeding Ability Assist with Tray Set Up Urine Appearance Clear Clear Urine Color Yellow Yellow Stool Size Moderate Stool Color Brown Brown Stool Consistency Soft Liquid Formed Loose # Bowel Movements 1 OBJ DATA Labs CBC & Chem 7: 09/03/22 05:10 09/07/22 05:46 Labs: Abnormal Lab Results 09/07/22 09/06/22 09/05/22 05:46 05:23 05:20 Sodium 132 L Carbon Dioxide 18 L 18 L 19 L BUN 42 H 50 H 47 H Creatinine 2.5 H 2.9 H 2.8 H Uric Acid 8.4 H 9.8 H 9.3 H Calcium 8.3 L Magnesium 1.4 L GGT 61 H 80 H 66 H Alkaline Phosphatase 122 H Total Protein 5.0 L 5.6 L 5.2 L Albumin 2.3 L 2.6 L 2.5 L Albumin/Globulin Ratio 0.9 L 0.9 L 0.9 L Meds: Medications Acetaminophen (Acetaminophen 500 Mg Tablet) 1,000 mg PO Q8H [facility]; Protocol Last Admin: 09/07/22 11:36 Dose: 1,000 mg Cholestyramine Resin (Cholestyramine/Aspartame 4 Gm Powd.Pack) 4 gm PO QID [facility] Last Admin: 09/07/22 12:39 Dose: 4 gm Donepezil HCl (Donepezil 10 Mg Tablet) 10 mg PO QDAY [facility] Last Admin: 09/07/22 08:44 Dose: 10 mg Folic Acid (Folic Acid 1 Mg Tablet) 1 mg PO DAILY [facility] Last Admin: 09/07/22 08:41 Dose: 1 mg Gabapentin (Gabapentin 100 Mg Capsule) 100 mg PO QDAY [facility] Last Admin: 09/07/22 08:42 Dose: 100 mg Heparin Sodium (Porcine) (Heparin 5,000 Unit/Ml Vial) 5,000 unit SQ Q12 [facility] Last Admin: 09/07/22 08:41 Dose: 5,000 unit Levothyroxine Sodium (Levothyroxine 150 Mcg Tablet) 150 mcg PO QAMAC [facility] Last Admin: 09/07/22 08:44 Dose: 150 mcg Levothyroxine Sodium (Levothyroxine 25 Mcg Tablet) 25 mcg PO QAMAC [facility] Last Admin: 09/07/22 08:43 Dose: 25 mcg Loperamide HCl (Loperamide 2 Mg Capsule) 4 mg PO AC [facility] Last Admin: 09/07/22 11:37 Dose: 4 mg Memantine (Memantine 10 Mg Tablet) 10 mg PO BID [facility] Last Admin: 09/07/22 08:43 Dose: 10 mg Mirtazapine (Mirtazapine 15 Mg Tablet) 7.5 mg PO QHS [facility] Last Admin: 09/06/22 21:58 Dose: 7.5 mg Octreotide Acetate (Octreotide Acetate 100 Mcg/Ml Vial) 100 mcg SQ TID [facility] Last Admin: 09/07/22 14:55 Dose: 100 mcg Ondansetron HCl (Ondansetron 4 Mg/2 Ml Vial) 4 mg IV Q4-6HP PRN; Protocol PRN Reason: Nausea And Vomiting Last Admin: 08/31/22 23:07 Dose: 4 mg Oxycodone HCl (Oxycodone Hcl 5 Mg Tablet) 5 mg PO Q4HP PRN; Protocol PRN Reason: Per Pain Protocol Last Admin: 09/07/22 08:43 Dose: 5 mg Psyllium Hydrophilic Mucilloid (Psyllium Husk 5.8 Gm Packet) 6 gm PO BID [facility] Last Admin: 09/07/22 08:41 Dose: 6 gm Quetiapine Fumarate (Quetiapine 25 Mg Tablet) 25 mg PO HSP PRN PRN Reason: Agitation Last Admin: 09/04/22 01:44 Dose: 25 mg Senna (Sennosides 1 Tablet) 1 tab PO HSP PRN PRN Reason: Constipation Sodium Bicarbonate (Sodium Bicarbonate 650 Mg Tablet) 650 mg PO BID [facility] Last Admin: 09/07/22 08:43 Dose: 650 mg Sodium Chloride (0.9 % Sodium Chloride 10 Ml Syringe) 10 ml IV Q8 [facility] Last Admin: 09/07/22 12:36 Dose: Not Given A/P Narrative A/P Narrative: Assessment: 87-year-old female with a past medical history for chronic kidney disease stage III, ulcerative colitis status post total colectomy and ileostomy admitted for hypovolemic shock felt to be secondary to high output ileostomy complicated by acute on chronic kidney disease injury. #Acute on chronic kidney disease stage IV injury, improved #Resolved hypovolemic shock #High output ileostomy, improved #Mild hyponatremia #Hypomagnesemia #Metabolic acidosis due to CKD #UTI secondary to Klebsiella #Recent fall with left knee fracture #History of ulcerative colitis status post colectomy and ileostomy #Generalized weakness #Frailty #Dementia Plan -IV fluid today. -Continue loperamide 4 mg 3 times daily with meals. -Continue octreotide 100 mcg SQ 3 times daily for now. -Continue cholestyramine and Metamucil and Banatrol. -Replace electrolytes, monitor sodium. -Monitor renal function, urine output. -Nephrology signed off. -Regular diet. -DVT prophylaxis: Heparin SQ -CODE STATUS: Full -Disposition: Low intensity rehab when medically stable. Time Spent With Patient Time: Total time spent is greater than 50% in coordination of care (as documented) at patient's floor/unit and/or counseling patient: QUALITY VTE Deep Vein Thrombosis/Pulmonary Embolism Present on Admission: No
[2022-09-07] MEDS: QUEtiapine 25 MG TABLET PO PRN (19:52)
[2022-09-07] MEDS: MIRTAZAPINE 15 MG TABLET PO SCH (20:46)
[2022-09-08] MEDS: ACETAMINOPHEN 500 MG TABLET PO SCH ×3 (02:31→19:28)
[2022-09-08 07:19] LABS: ALT/SGPT 5 U/L (<40); AST/SGOT 12 U/L (<32); Albumin 2.2 gm/dL (3.2-5.2); Albumin/Globulin Ratio 0.8 (1.0-2.3); Alkaline Phosphatase 91 U/L (39-117); Bilirubin,Direct < 0.2 mg/dL (0-0.3); Bilirubin,Total < 0.2 mg/dL (0.1-1.0); Blood Urea Nitrogen 38 mg/dL (8-23); Calcium 8.4 mg/dL (8.6-10.4); Carbon Dioxide 17 mmol/L (22-30); Chloride 105 mmol/L (96-108); Globulin 2.8 gm/dL (2.2-3.7); Glomerular Filtration Rate 20; Glucose 96 mg/dL (70-105); Lactate Dehydrogenase 166 U/L (135-225); Phosphorous 2.9 mg/dL (2.5-4.5); Triglycerides 170 mg/dL (<150); Uric Acid 7.9 mg/dL (2.5-8.0)
[2022-09-08] MEDS: LEVOTHYROXINE 150 MCG TABLET PO SCH (07:22)
[2022-09-08] MEDS: LEVOTHYROXINE 25 MCG TABLET PO SCH (07:22)
[2022-09-08] MEDS: LOPERAMIDE 2 MG CAPSULE PO SCH ×3 (07:23→17:07)
[2022-09-08] MEDS: 0.9 % SODIUM CHLORIDE 10 ML SYRINGE IV SCH ×3 (07:23→21:49)
[2022-09-08] MEDS: HEPARIN 5,000 UNIT/ML VIAL SQ SCH ×2 (08:39→21:48)
[2022-09-08] MEDS: SODIUM BICARBONATE 650 MG TABLET PO SCH ×2 (08:40→21:47)
[2022-09-08] MEDS: PSYLLIUM HUSK 5.8 GM PACKET PO SCH (08:40)
[2022-09-08] MEDS: DONEPEZIL 10 MG TABLET PO SCH (08:40)
[2022-09-08] MEDS: MEMANTINE 10 MG TABLET PO SCH ×2 (08:40→21:47)
[2022-09-08] MEDS: CHOLESTYRAMINE/ASPARTAME 4 GM POWD.PACK PO SCH ×4 (08:40→23:38)
[2022-09-08] MEDS: GABAPENTIN 100 MG CAPSULE PO SCH (08:40)
[2022-09-08] MEDS: FOLIC ACID 1 MG TABLET PO SCH (08:40)
[2022-09-08] MEDS: OCTREOTIDE ACETATE 100 MCG/ML VIAL SQ SCH ×3 (08:52→21:49)
--- NOTE | 2022-09-08 13:57 | Internal Med Progress Note ---
SUBJECTIVE Subjective Patient information: Note initiated : 09/08/22 at 1:53 pm Service Date, if different from initiated Date: [] Patient: Janelle Rene 87 y/o F admitted on 08/31/22 for syncope. Chief Complaint: [] Principal diagnosis: UTI, Hypovolumic shock Interval history: 09/06 Stable overnight, alert, oriented today. Daughter at bedside when I visited.Patient continues to have high ileostomy output, BUN and creatinine trending up. Resumed IV fluid. Increased loperamide to 4 mg 3 times daily with meals, started octreotide 100 mcg 3 times daily. 09/07 The patient's ostomy output has decreased with the changes to loperamide and addition of octreotide yesterday, renal function has also improved. We will c ontinue IV fluids today then discontinue and continue to monitor. 09/08 Ostomy amount has decreased significantly. Sodium level dropped to 128 today, will recheck this afternoon. Renal function continues to improve. Magnesium normal today, potassium mildly elevated will recheck this afternoon. Physical exam Head: Atraumatic, normal inspection. Eyes: normal appearance, no scleral icterus. Neck: full ROM Respiratory: no respiratory distress. Cardiovascular: normal rate and rhythm, S1, S2. GI/Abdominal: Ostomy present with soft stool, soft, nontender, no guarding. Extremities: full range of motion, nontender. Neurological: CN II-XII intact, intact motor, intact sensation. Psychiatric: normal mood. Skin: warm, normal color Constitutional Vitals: Vital Signs Temp Pulse Resp BP Pulse Ox O2 Del Method O2 Flow Rate 98.6 F 69 14 106/49 96 0 09/08/22 11:29 09/08/22 11:29 09/08/22 11:29 09/08/22 11:29 09/08/22 11:29 09/08/22 11:29 09/04/22 03:11 Period Temp Pulse Resp BP Sys/Mistry Pulse Ox O2 Del Method O2 Flow Rate Last 24 Hr 98.1 F-98.8 F 59-72 12-17 100-119/49-69 95-97 Room Air-Room Air Intake and Output 09/08/22 09/08/22 09/08/22 03:59 11:59 19:59 Intake Total 2040 240 Output Total 900 Balance 1140 240 Weight 75.75 kg Intake & Output: Intake & Output 09/08/22 09/08/22 09/08/22 03:59 11:59 19:59 Intake Total 2040 240 Output Total 900 Balance 1140 240 Weight 75.75 kg Intake: IV 1000 Sodium Chloride 0.9% 1,000 ml @ 1000 100 mls/hr IV .Q10H [facility] Rx#: [id number] Oral 1040 240 Output: Void Amount 600 Stool 300 Other: Meal Breakfast Lunch Percent of Meal Consumed 100% 75% Feeding Ability Assist with Tray Set Up Assist with Tray Set Up Urine Appearance Clear Clear Urine Color Yellow Yellow Stool Size Moderate Moderate Stool Color Brown Brown Stool Consistency Soft Watery Formed # Bowel Movements 2 1 OBJ DATA Labs CBC & Chem 7: 09/03/22 05:10 09/08/22 05:21 Labs: Abnormal Lab Results 09/08/22 09/07/22 09/06/22 05:21 05:46 05:23 Sodium 128 L 132 L Potassium 5.2 H Carbon Dioxide 17 L 18 L 18 L Anion Gap 6.0 L BUN 38 H 42 H 50 H Creatinine 2.1 H 2.5 H 2.9 H Uric Acid 8.4 H 9.8 H Calcium 8.4 L 8.3 L Magnesium 1.4 L GGT 54 H 61 H 80 H Alkaline Phosphatase 122 H Total Protein 5.0 L 5.0 L 5.6 L Albumin 2.2 L 2.3 L 2.6 L Albumin/Globulin Ratio 0.8 L 0.9 L 0.9 L Triglycerides 170 H Meds: Medications Acetaminophen (Acetaminophen 500 Mg Tablet) 1,000 mg PO Q8H [facility]; Protocol Last Admin: 09/08/22 11:28 Dose: 1,000 mg Cholestyramine Resin (Cholestyramine/Aspartame 4 Gm Powd.Pack) 4 gm PO QID [facility] Last Admin: 09/08/22 08:40 Dose: 4 gm Donepezil HCl (Donepezil 10 Mg Tablet) 10 mg PO QDAY [facility] Last Admin: 09/08/22 08:40 Dose: 10 mg Folic Acid (Folic Acid 1 Mg Tablet) 1 mg PO DAILY [facility] Last Admin: 09/08/22 08:40 Dose: 1 mg Gabapentin (Gabapentin 100 Mg Capsule) 100 mg PO QDAY [facility] Last Admin: 09/08/22 08:40 Dose: 100 mg Heparin Sodium (Porcine) (Heparin 5,000 Unit/Ml Vial) 5,000 unit SQ Q12 [facility] Last Admin: 09/08/22 08:39 Dose: 5,000 unit Levothyroxine Sodium (Levothyroxine 150 Mcg Tablet) 150 mcg PO QAMAC [facility] Last Admin: 09/08/22 07:22 Dose: 150 mcg Levothyroxine Sodium (Levothyroxine 25 Mcg Tablet) 25 mcg PO QAMAC [facility] Last Admin: 09/08/22 07:22 Dose: 25 mcg Loperamide HCl (Loperamide 2 Mg Capsule) 4 mg PO AC [facility] Last Admin: 09/08/22 11:27 Dose: 4 mg Memantine (Memantine 10 Mg Tablet) 10 mg PO BID [facility] Last Admin: 09/08/22 08:40 Dose: 10 mg Mirtazapine (Mirtazapine 15 Mg Tablet) 7.5 mg PO QHS [facility] Last Admin: 09/07/22 20:46 Dose: 7.5 mg Octreotide Acetate (Octreotide Acetate 100 Mcg/Ml Vial) 100 mcg SQ TID [facility] Last Admin: 09/08/22 08:52 Dose: 100 mcg Ondansetron HCl (Ondansetron 4 Mg/2 Ml Vial) 4 mg IV Q4-6HP PRN; Protocol PRN Reason: Nausea And Vomiting Last Admin: 08/31/22 23:07 Dose: 4 mg Oxycodone HCl (Oxycodone Hcl 5 Mg Tablet) 5 mg PO Q4HP PRN; Protocol PRN Reason: Per Pain Protocol Last Admin: 09/07/22 08:43 Dose: 5 mg Psyllium Hydrophilic Mucilloid (Psyllium Husk 5.8 Gm Packet) 6 gm PO BID [facility] Last Admin: 09/08/22 08:40 Dose: 6 gm Quetiapine Fumarate (Quetiapine 25 Mg Tablet) 25 mg PO HSP PRN PRN Reason: Agitation Last Admin: 09/07/22 19:52 Dose: 25 mg Senna (Sennosides 1 Tablet) 1 tab PO HSP PRN PRN Reason: Constipation Sodium Bicarbonate (Sodium Bicarbonate 650 Mg Tablet) 650 mg PO BID [facility] Last Admin: 09/08/22 08:40 Dose: 650 mg Sodium Chloride (0.9 % Sodium Chloride 10 Ml Syringe) 10 ml IV Q8 [facility] Last Admin: 09/08/22 07:23 Dose: 10 ml A/P Narrative A/P Narrative: Assessment: 87-year-old female with a past medical history for chronic kidney disease stage III, ulcerative colitis status post total colectomy and ileostomy admitted for hypovolemic shock felt to be secondary to high output ileostomy complicated by acute on chronic kidney disease injury. #Moderate hyponatremia #Mild hyperkalemia #Probably resolved acute on chronic kidney disease stage IV injury #Resolved hypovolemic shock #High output ileostomy, improved #Mild hyponatremia #Hypomagnesemia #Metabolic acidosis due to CKD #UTI secondary to Klebsiella #Recent fall with left knee fracture #History of ulcerative colitis status post colectomy and ileostomy #Generalized weakness #Frailty #Dementia Plan -Follow sodium and potassium levels this afternoon. -Continue loperamide 4 mg 3 times daily with meals. -Continue octreotide 100 mcg SQ 3 times daily for now. -Continue cholestyramine and discontinue Metamucil. -Replace electrolytes as needed. -Monitor renal function, urine output. -Nephrology signed off. -Regular diet. -PT and OT following. -DVT prophylaxis: Heparin SQ -CODE STATUS: Full -Disposition: Low intensity rehab when medically stable. Time Spent With Patient Time: Total time spent is greater than 50% in coordination of care (as documented) at patient's floor/unit and/or counseling patient: QUALITY VTE Deep Vein Thrombosis/Pulmonary Embolism Present on Admission: No
[2022-09-08 14:48] LABS: Albumin 2.6 gm/dL (3.2-5.2); Blood Urea Nitrogen 43 mg/dL (8-23); Calcium 8.6 mg/dL (8.6-10.4); Carbon Dioxide 17 mmol/L (22-30); Chloride 104 mmol/L (96-108); Glomerular Filtration Rate 19; Glucose 127 mg/dL (70-105); Phosphorous 2.7 mg/dL (2.5-4.5)
[2022-09-08] MEDS: MIRTAZAPINE 15 MG TABLET PO SCH (21:47)
[2022-09-09] MEDS: ACETAMINOPHEN 500 MG TABLET PO SCH ×2 (03:19→10:48)
[2022-09-09] MEDS: 0.9 % SODIUM CHLORIDE 10 ML SYRINGE IV SCH (06:01)
[2022-09-09 06:40] LABS: ALT/SGPT < 5 U/L (<40); AST/SGOT 14 U/L (<32); Albumin 2.3 gm/dL (3.2-5.2); Albumin/Globulin Ratio 0.8 (1.0-2.3); Alkaline Phosphatase 103 U/L (39-117); Bilirubin,Direct < 0.2 mg/dL (0-0.3); Bilirubin,Total 0.2 mg/dL (0.1-1.0); Blood Urea Nitrogen 39 mg/dL (8-23); Calcium 8.8 mg/dL (8.6-10.4); Carbon Dioxide 16 mmol/L (22-30); Chloride 105 mmol/L (96-108); Glomerular Filtration Rate 19; Glucose 90 mg/dL (70-105); Lactate Dehydrogenase 184 U/L (135-225); Phosphorous 2.8 mg/dL (2.5-4.5); Triglycerides 177 mg/dL (<150); Uric Acid 8.3 mg/dL (2.5-8.0)
[2022-09-09] MEDS: LOPERAMIDE 2 MG CAPSULE PO SCH ×2 (07:16→10:49)
[2022-09-09] MEDS: LEVOTHYROXINE 150 MCG TABLET PO SCH (07:16)
[2022-09-09] MEDS: LEVOTHYROXINE 25 MCG TABLET PO SCH (07:16)
[2022-09-09] MEDS: HEPARIN 5,000 UNIT/ML VIAL SQ SCH (08:44)
[2022-09-09] MEDS: OCTREOTIDE ACETATE 100 MCG/ML VIAL SQ SCH (08:44)
[2022-09-09] MEDS: CHOLESTYRAMINE/ASPARTAME 4 GM POWD.PACK PO SCH (08:45)
[2022-09-09] MEDS: SODIUM BICARBONATE 650 MG TABLET PO SCH (08:45)
[2022-09-09] MEDS: MEMANTINE 10 MG TABLET PO SCH (08:45)
[2022-09-09] MEDS: GABAPENTIN 100 MG CAPSULE PO SCH (08:45)
[2022-09-09] MEDS: DONEPEZIL 10 MG TABLET PO SCH (08:45)
[2022-09-09] MEDS: FOLIC ACID 1 MG TABLET PO SCH (08:45)
[2022-09-09] MEDS ORDERED: MAGNESIUM SULFATE 2 GM/50 ML BAG IV ONE (09:03)
--- NOTE | 2022-09-09 10:25 | Internal Med Progress Note ---
SUBJECTIVE Subjective Patient information: Note initiated : 09/09/22 at 10:23 am Service Date, if different from initiated Date: [] Patient: Janelle Rene 87 y/o F admitted on 08/31/22 for syncope. Chief Complaint: [] Principal diagnosis: UTI, Hypovolumic shock Interval history: 09/06 Stable overnight, alert, oriented today. Daughter at bedside when I visited.Patient continues to have high ileostomy output, BUN and creatinine trending up. Resumed IV fluid. Increased loperamide to 4 mg 3 times daily with meals, started octreotide 100 mcg 3 times daily. 09/07 The patient's ostomy output has decreased with the changes to loperamide and addition of octreotide yesterday, renal function has also improved. We will continue IV fluids today then discontinue and continue to monitor. 09/08 Ostomy amount has decreased significantly. Sodium level dropped to 128 today, will recheck this afternoon. Renal function continues to improve. Magnesium normal today, potassium mildly elevated will recheck this afternoon. 09/09 No significant events overnight, vitals stable. Ostomy output has decreased significantly. Discontinued octreotide this morning. Potassium was 5.8 with morning labs, recheck 5.5. Creatinine stable. Anticipating discharge to low intensity rehab tomorrow. Physical exam Head: Atraumatic, normal inspection. Eyes: normal appearance, no scleral icterus. Neck: full ROM Respiratory: no respiratory distress. Cardiovascular: normal rate and rhythm, S1, S2. GI/Abdominal: Ostomy present with soft stool, soft, nontender, no guarding. Extremities: full range of motion, nontender. Neurological: CN II-XII intact, intact motor, intact sensation. Psychiatric: normal mood. Skin: warm, normal color Constitutional Vitals: Vital Signs Temp Pulse Resp BP Pulse Ox O2 Del Method O2 Flow Rate 98.1 F 55 L 20 114/58 98 0 09/09/22 08:00 09/09/22 08:00 09/09/22 08:00 09/09/22 08:00 09/09/22 08:00 09/09/22 08:00 09/04/22 03:11 Period Temp Pulse Resp BP Sys/Mistry Pulse Ox O2 Del Method O2 Flow Rate Last 24 Hr 98.1 F-98.8 F 55-72 14-22 106-122/49-62 96-99 Room Air-Room Air Intake and Output 09/08/22 09/09/22 09/09/22 19:59 03:59 11:59 Intake Total 730 450 200 Output Total 101 451 651 Balance 629 -1 -451 Weight 77.247 kg Intake & Output: Intake & Output 09/08/22 09/09/22 09/09/22 19:59 03:59 11:59 Intake Total 730 450 200 Output Total 101 451 651 Balance 629 -1 -451 Weight 77.247 kg Intake: Oral 730 450 200 Output: Urine Catheter Amount 100 Void Amount 150 # of times incontinent of urine 1 1 1 Stool 450 500 Other: Meal Dinner Breakfast Percent of Meal Consumed 50% 75% Feeding Ability Assist with Tray Set Up Assist with Tray Set Up Urine Appearance Clear Clear Urine Color Yellow Yellow Urine Odor Normal Stool Size Large Copious Stool Color Brown Brown Stool Consistency Liquid OBJ DATA Labs CBC & Chem 7: 09/03/22 05:10 09/09/22 07:47 Labs: Abnormal Lab Results 09/09/22 09/09/22 09/08/22 07:47 05:35 14:03 Sodium 130 L 128 L Potassium 5.5 H 5.8 H Carbon Dioxide 16 L 17 L Anion Gap 7.0 L BUN 39 H 43 H Creatinine 2.2 H 2.2 H Glucose 127 H Uric Acid 8.3 H Calcium Magnesium GGT 70 H Total Protein 5.3 L Albumin 2.3 L 2.6 L Albumin/Globulin Ratio 0.8 L Triglycerides 177 H 09/08/22 09/07/22 05:21 05:46 Sodium 128 L 132 L Potassium 5.2 H Carbon Dioxide 17 L 18 L Anion Gap 6.0 L BUN 38 H 42 H Creatinine 2.1 H 2.5 H Glucose Uric Acid 8.4 H Calcium 8.4 L 8.3 L Magnesium 1.4 L GGT 54 H 61 H Total Protein 5.0 L 5.0 L Albumin 2.2 L 2.3 L Albumin/Globulin Ratio 0.8 L 0.9 L Triglycerides 170 H Meds: Medications Acetaminophen (Acetaminophen 500 Mg Tablet) 1,000 mg PO Q8H RONALD; Protocol Last Admin: 09/09/22 03:19 Dose: 1,000 mg Cholestyramine Resin (Cholestyramine/Aspartame 4 Gm Powd.Pack) 4 gm PO QID RONALD Last Admin: 09/09/22 08:45 Dose: 4 gm Donepezil HCl (Donepezil 10 Mg Tablet) 10 mg PO QDAY [facility] Last Admin: 09/09/22 08:45 Dose: 10 mg Folic Acid (Folic Acid 1 Mg Tablet) 1 mg PO DAILY [facility] Last Admin: 09/09/22 08:45 Dose: 1 mg Gabapentin (Gabapentin 100 Mg Capsule) 100 mg PO QDAY [facility] Last Admin: 09/09/22 08:45 Dose: 100 mg Heparin Sodium (Porcine) (Heparin 5,000 Unit/Ml Vial) 5,000 unit SQ Q12 [facility] Last Admin: 09/09/22 08:44 Dose: 5,000 unit Magnesium Sulfate (Magnesium Sulfate) 2 gm in 50 mls @ 25 mls/hr IV ONCE ONE Stop: 09/09/22 11:02 Last Admin: 09/09/22 09:17 Dose: 25 mls/hr Levothyroxine Sodium (Levothyroxine 150 Mcg Tablet) [facility] Admin: 09/09/22 07:16 Dose: 150 mcg Levothyroxine Sodium (Levothyroxine 25 Mcg Tablet) 25 mcg PO QAMAC [facility] Last Admin: 09/09/22 07:16 Dose: 25 mcg Loperamide HCl (Loperamide 2 Mg Capsule) 4 mg PO AC [facility] Last Admin: 09/09/22 07:16 Dose: 4 mg Memantine (Memantine 10 Mg Tablet) 10 mg PO BID [facility] Last Admin: 09/09/22 08:45 Dose: 10 mg Mirtazapine (Mirtazapine 15 Mg Tablet) 7.5 mg PO QHS [facility] Last Admin: 09/08/22 21:47 Dose: 7.5 mg Ondansetron HCl (Ondansetron 4 Mg/2 Ml Vial) 4 mg IV Q4-6HP PRN; Protocol PRN Reason: Nausea And Vomiting Last Admin: 08/31/22 23:07 Dose: 4 mg Oxycodone HCl (Oxycodone Hcl 5 Mg Tablet) 5 mg PO Q4HP PRN; Protocol PRN Reason: Per Pain Protocol Last Admin: 09/07/22 08:43 Dose: 5 mg Psyllium Hydrophilic Mucilloid (Psyllium Husk 5.8 Gm Packet) 6 gm PO BID [facility] Quetiapine Fumarate (Quetiapine 25 Mg Tablet) 25 mg PO HSP PRN PRN Reason: Agitation Last Admin: 09/07/22 19:52 Dose: 25 mg Senna (Sennosides 1 Tablet) 1 tab PO HSP PRN PRN Reason: Constipation Sodium Bicarbonate (Sodium Bicarbonate 650 Mg Tablet) 650 mg PO BID [facility] Last Admin: 09/09/22 08:45 Dose: 650 mg Sodium Chloride (0.9 % Sodium Chloride 10 Ml Syringe) 10 ml IV Q8 [facility] Last Admin: 09/09/22 06:01 Dose: 10 ml A/P Narrative A/P Narrative: Assessment: 87-year-old female with a past medical history for chronic kidney disease stage III, ulcerative colitis status post total colectomy and ileostomy admitted for hypovolemic shock felt to be secondary to high output ileostomy complicated by acute on chronic kidney disease injury. #Moderate hyponatremia #Mild hyperkalemia #Resolved acute on chronic kidney disease stage IV injury #Resolved hypovolemic shock #High output ileostomy, improved #Mild hyponatremia #Hypomagnesemia #Metabolic acidosis due to CKD #UTI secondary to Klebsiella #Recent fall with left knee fracture #History of ulcerative colitis status post colectomy and ileostomy #Generalized weakness #Frailty #Dementia Plan -Follow sodium and potassium levels this afternoon. -Continue loperamide 4 mg 3 times daily with meals. -Discontinue octreotide. -Continue cholestyramine. -Resume Metamucil. -Replace electrolytes as needed. -Monitor renal function, urine output. -Nephrology signed off. -Regular diet. -PT and OT following. -DVT prophylaxis: Heparin SQ -CODE STATUS: Full -Disposition: Low intensity rehab probably tomorrow.. Time Spent With Patient Time: Total time spent is greater than 50% in coordination of care (as documented) at patient's floor/unit and/or counseling patient: QUALITY VTE Deep Vein Thrombosis/Pulmonary Embolism Present on Admission: No
--- NOTE | 2022-09-09 12:29 | Discharge Summary ---
Discharge Provider Provider IMPORTANT FOLLOW-UP INFORMATION FOR PCP: Patient information: Note initiated : 09/09/22 at 12:23 pm Service Date, if different from initiated Date: [] Patient: Janelle Rene 87 y/o F admitted on 08/31/22 for syncope. Chief Complaint: [] Date of admission: 08/31/22 16:55 Discharge date: 09/09/22 Primary care physician: Ivone Terrell Consults: 08/31/22 10:59 Consult to Physician [CONS] Stat Comment: Consulting Provider: Sd Mcnally Reason For Exam: Physician to Consult 08/31/22 11:00 Consult to Physician [CONS] Stat Comment: Consulting Provider: Abbi No Reason For Exam: Physician to Consult 09/05/22 15:26 Consult to Physician [CONS] Routine Comment: snf referral Consulting Provider: [facility] Denice Reason For Exam: Physician to Consult COURSE Hospital Course Hospital course: Janelle Rene is an 87-year-old female with a past medical history of chronic kidney disease stage III, ulcerative colitis status post total colectomy and ileostomy, dementia who was admitted to the hospital for hypovolemic shock felt to be secondary to high output ileostomy that was complicated by acute on chronic kidney disease injury and hypotonic hyponatremia. Patient received IV fluid, hypovolemic shock resolved and she eventually recovered from the acute kidney injury and sodium level improved as well. For the high output ileostomy, the patient was resumed on cholestyramine however at a higher dose, Metamucil was added and later loperamide with meals as well as octreotide 3 times daily. The ileostomy output improved. Octreotide was later discontinued. Sodium level continued to improve. Therapy is recommended low intensity rehab. The patient was discharged to low intensity rehab. She will continue cholestyramine, Metamucil and loperamide for the high output ileostomy. The patient did have intermittent hyperkalemia during hospitalization, I recommend following potassium levels after discharge. If the patient does have recurrent high output from her ileostomy in spite of the medications she is discharged with then consider adding octreotide as this worked well during this hospitalization. Physical exam Head: Atraumatic, normal inspection. Eyes: normal appearance, no scleral icterus. Neck: full ROM Respiratory: no respiratory distress. Cardiovascular: normal rate and rhythm, S1, S2. GI/Abdominal: Ostomy present with soft stool, soft, nontender, no guarding. Extremities: full range of motion, nontender. Neurological: CN II-XII intact, intact motor, intact sensation. Psychiatric: normal mood. Skin: warm, normal color Discharge diagnosis: Hypovolemic shock Secondary discharge diagnosis: Acute on chronic kidney disease stage III injury High output ileostomy Hyperkalemia Hyponatremia Time Spent with Patient Time attestation: Total time spent providing and/or coordinating discharge services: Time spent: Greater than 30 minutes EXAM Constitutional Vitals: Temp Pulse Resp BP Pulse Ox O2 Del Method O2 Flow Rate 98.4 F 61 14 120/58 98 0 09/09/22 11:26 09/09/22 11:26 09/09/22 11:26 09/09/22 11:26 09/09/22 11:26 09/09/22 11:26 09/04/22 03:11 Discharge Data Data Completed and Pending Labs on day of discharge: Labs from last 24 hours 09/09/22 09/09/22 09/08/22 07:47 05:35 14:03 Sodium 130 L 128 L Potassium 5.5 H 5.8 H 4.9 Chloride 105 104 Carbon Dioxide 16 L 17 L Anion Gap 9.0 7.0 L BUN 39 H 43 H Creatinine 2.2 H 2.2 H GFR Calculation 19 19 Glucose 90 127 H Uric Acid 8.3 H Calcium 8.8 8.6 Phosphorus 2.8 2.7 Magnesium 1.6 Total Bilirubin 0.2 Direct Bilirubin < 0.2 GGT 70 H AST 14 ALT < 5 Alkaline Phosphatase 103 Lactate Dehydrogenase 184 Total Protein 5.3 L Albumin 2.3 L 2.6 L Globulin 3.0 Albumin/Globulin Ratio 0.8 L Triglycerides 177 H Discharge Plan Patient/Caregiver Discharge Instructions Activity: as per physical therapy Diet: Regular Diet Prescriptions: New cholestyramine-aspartame [Cholestyramine Light] 4 gram Powder In Packet 4 g PO QID Qty: 60 6RF loperamide 2 mg Capsule 4 mg PO AC Qty: 90 3RF gabapentin 100 mg Capsule 100 mg PO QDAY Qty: 30 2RF Metamucil Fiber Singles 3.4 gram Powder In Packet 2 packet PO BID Qty: 44 5RF Continued levothyroxine 175 mcg capsule 175 mcg PO QDAY acetaminophen 325 mg capsule 325 mg PO ONCE PRN (Reason: Pain) omega [id number]-fish oil [Fish Oil] 1,200 (144-216) mg capsule 1 cap PO BID magnesium 250 mg tablet 400 mg PO HS Rx Instructions: "at bedtime" donepezil 10 mg tablet 10 mg PO QHS Rx Instructions: "at bedtime" memantine 10 mg tablet 10 mg PO BID folic acid 400 mcg tablet 800 mcg PO Q48H Rx Instructions: Every other day Sun Tu Thur Sat per patient's home medication list sodium bicarbonate 650 mg tablet 1 tab PO BID Glucosamine Chondroitin capsule 1,500 mg PO DAILY selenium 200 mcg capsule 200 mcg PO DAILY ergocalciferol (vitamin D2) 25,000 unit Capsule 50,000 unit PO WEEKLY Rx Instructions: Friday multivitamin Tablet 1 tab PO DAILY cyanocobalamin (vitamin B-12) 500 mcg 1 tab PO Q48 Rx Instructions: Sun- - - Sat Calcium 600 with Vitamin D3 600 mg-10 mcg (400 unit) tablet,chewable 1 tab PO DAILY mirtazapine 7.5 mg tablet 7.5 mg PO QHS Discontinued gabapentin 100 mg capsule 100 mg PO BID potassium citrate 10 mEq (1,080 mg) tablet extended release 1,080 mg PO BID cholestyramine (with sugar) 4 gram powder 1 ea PO QID Follow Up Plan Follow up with: Ivone Terrell MD [Primary Care Provider] - Patient Disposition: Xfer SNF Prognosis: Critical Rehab Potential: Fair I certify that the patient requires SNF services: Yes Overall status at discharge: patient is progressing back to baseline Discharge Orders: Discharge Order (Routine); Ordered 09/09/22 Ordered By: Ronnell Colon QUALITY VTE Deep Vein Thrombosis/Pulmonary Embolism Present on Admission: No
[2022-09-09] MEDS ORDERED: PSYLLIUM HUSK 5.8 GM PACKET PO SCH (21:00)
== END 2022-09-09 13:45 | DRG 871 ==
LOC: ED 16:47 → ICU 08-31 16:55 → MEDSUR 09-04 12:08
PROVIDERS: ADMIT Internal Medicine; ATTEND Internal Medicine